=== PATIENT | male | born 1950 | race Caucasian/White ===

== ENCOUNTER → 2017-07-20 15:37 | Outpatient (CLI) | payer MEDICARE, OTHER, SELFPAY ==
--- NOTE | 2017-07-20 15:44 | XR_ITS ---
XR wrist RT min 3V HISTORY posttraumatic pain ITS.REASON: FALL ORDERING PHYSICIAN: Alice Mora MD PATIENT AGE: 67 years COMPARISON: None FINDINGS: There is a vague lucency along the lateral and mid aspect of the scaphoid seen on the AP view. Cannot exclude the possibility of a nondisplaced fracture. Please correlate as to patient's area of pain and tenderness. Scaphoid views may be of further value. No other significant anomalies are evident. IMPRESSION: Ill-defined transverse lucency in the mid aspect of the scaphoid seen only on one view. Cannot exclude the possibility of a nondisplaced fracture. Follow-up recommended
== END ==
PROVIDERS: PCP Family Medicine; Visit Provider Family Medicine
DX: M25.531 Pain in right wrist (principal)
CPT/HCPCS: 73110

== ENCOUNTER → 2018-02-22 08:27 | Outpatient (CLI) | payer MEDICARE, OTHER, SELFPAY ==
--- NOTE | 2018-02-22 08:32 | CI_ITS ---
Cerebrovascular Exam Indications: 433.10 Occlusion/stenosis of carotid artery without cerebral infarction. 785.9 Bruit. IMPRESSIONS 1. The bilateral vertebral arteries are patent with normal antegrade flow. 2. Study suggests 20-49%(LOWER END OF SCALE)stenosis involving the right internal carotid artery and the left internal carotid artery. No change from the study of 02-Jan-2017. History: Coronary artery disease. Risk factors: Hypertension. Hyperlipidemia. Carotid duplex study. Complete study and Doppler flow study including spectral analysis, color and bui scale imaging. Location: Vascular laboratory. Patient status: Outpatient. Tables: Arterial flow: + +--------+--------+ Location V sys V ed + +--------+--------+ Right CCA - proximal 80.9cm/s 17.3cm/s + +--------+--------+ Right CCA - distal 80.9cm/s 17.3cm/s + +--------+--------+ Right ECA 162cm/s -------- + +--------+--------+ Right ICA - proximal 93.5cm/s 19.6cm/s + +--------+--------+ Right ICA - mid 102cm/s 28.3cm/s + +--------+--------+ Right ICA - distal 72.3cm/s 28.3cm/s + +--------+--------+ Right vertebral 41cm/s -------- + +--------+--------+ Left CCA - proximal 89.1cm/s 19.2cm/s + +--------+--------+ Left CCA - distal 108cm/s 23.6cm/s + +--------+--------+ Left ECA 193cm/s -------- + +--------+--------+ Left ICA - proximal 91.7cm/s 22.7cm/s + +--------+--------+ Left ICA - mid 98.7cm/s 27.1cm/s + +--------+--------+ Left ICA - distal 92.5cm/s 22.7cm/s + +--------+--------+ Left vertebral 31.4cm/s -------- + +--------+--------+ Velocity ratios: + + + + + + Right, V sys Right, V ed Left, V sys Left, V ed + + + + + + Max ICA/dist CCA 1.26 1.64 0.91 1.15 + + + + + + (Report amended ) Electronically signed by: Danie Rasheed [id number]
== END ==
PROVIDERS: PCP Emergency Medicine; Visit Provider Emergency Medicine
DX: R09.89 Other specified symptoms and signs involving the circulatory and respiratory systems (principal)
CPT/HCPCS: 93880

== ENCOUNTER → 2018-03-09 10:29 | Outpatient (CLI) | payer MEDICARE, OTHER, SELFPAY ==
--- NOTE | 2018-03-09 10:33 | CT_ITS ---
CT abdomen wo/w con CLINICAL INDICATION: ITS.REASON: HYPERKALEMIA ORDERING PHYSICIAN: Alice Mora MD PATIENT AGE: 67 years COMPARISON: 12/08/2016 TECHNIQUE: Axial images obtained with sagittal and coronal reformats. All CT scans at the facility use one or more dose reduction, viz: automated exposure control, ma/kV adjustment per patient size (including targeted exams where dose is matched to indication, i.e. head), or iterative reconstruction technique. PROCEDURE: Oral Contrast: None IV Contrast: 75 mL's of Isovue 370. FINDINGS: There is extensive coronary artery calcification with coronary artery stents present. There is mild thickening of the pericardium anteriorly. Prior cholecystectomy. No focal liver lesion. Multiple calcified granulomas are present in the spleen. The adrenal glands are unremarkable. The pancreas has an unremarkable appearance. There are nonobstructing renal calculi on the right measuring up to 5 mm in the mid to upper pole. There are 2 left renal cysts one in the mid polar region at 18 mm and one in the lower pole at 28 mm. No hydronephrosis. No ureteral calculi. No retroperitoneal adenopathy or retroperitoneal mass. The appendix has an unremarkable appearance. Bowel gas pattern is nonspecific/nonobstructive. Diverticulosis of the descending and sigmoid colon. The pelvis is not imaged. There are mild osteoarthritic changes of the SI joints and there is a small sclerotic focus of the right ilium medially at 8 mm consistent with a bone island incompletely imaged. A sclerotic lesion also involves the T11 vertebral body inferiorly and anteriorly unchanged from 12/08/2016. This measures 14 mm may be due to a bone island. This has been stable since 03/08/2013. IMPRESSION: 1. No acute finding. 2. Unremarkable adrenal glands. 3. Nonobstructing right nephrolithiasis with benign-appearing left renal cysts
== END ==
PROVIDERS: PCP Family Medicine; Visit Provider Family Medicine
DX: E87.5 Hyperkalemia (principal)
CPT/HCPCS: 74170; Q9967

== ENCOUNTER → 2018-04-28 13:34 | Outpatient (POV) | payer MEDICARE, OTHER, SELFPAY | DX: Z00.00 Encounter for general adult medical examination without abnormal findings (principal) ==

== ENCOUNTER 2018-11-10 23:01 | Observation (INO) ==
[2018-11-10 23:29] LABS: Basophils # 0.1 K/mm3 (0-0.2); Basophils % 0.7 % (0.1-2.0); Eosinophils # 0.1 K/mm3 (0.0-0.4); Eosinophils % 1.5 % (0.1-12.0); Hematocrit 39.4 % (42.0-52.0); Hemoglobin 12.9 g/dL (14.1-18.0); Lymphocytes # 1.2 K/mm3 (0.7-4.5); Lymphocytes % 12.7 % (10-50); Mean Corpuscular HGB Conc 32.8 g/dL (31.8-35.4); Mean Corpuscular Volume 89.5 fl (80-94); Mean Platelet Volume 8.3 fl (7.4-10.4); Monocytes # 0.7 K/mm3 (0.1-1.0); Monocytes % 7.3 % (1.7-9.3); Neutrophils # 7.3 K/mm3 (1.8-7.8); Neutrophils % 77.9 % (37.0-80.0); Platelet Count 236 K/mm3 (142-424); Red Blood Count 4.41 M/mm3 (4.60-6.20); Red Cell Distribution Width 12.9 % (11.5-17.5); White Blood Count 9.4 K/mm3 (4.8-10.8)
[2018-11-10 23:41] LABS: Alanine Aminotransferase 21 U/L (12-78); Albumin Level 3.4 gm/dL (3.4-5.0); Albumin/Globulin Ratio 1.1 (1.1-1.8); Alkaline Phosphatase 97 U/L (46-116); Amylase 38 U/L (25-115); Anion Gap 7.4 mEq/L (5-15); Aspartate Amino Transferase 11 U/L (15-37); Bilirubin,Total 0.3 mg/dL (0.2-1.0); Blood Urea Nitrogen 17 mg/dL (7-18); C-Reactive Protein < 0.2 mg/dL (0.0-0.9); Calcium 8.6 mg/dL (8.5-10.1); Carbon Dioxide 29 mmol/L (21.0-32.0); Chloride 103 mmol/L (98-107); Glucose 80 mg/dL (74-106); Sodium 136 mmol/L (136-145); Total Protein,Serum 6.4 gm/dL (6.4-8.2)
[2018-11-11 00:15] LABS: Microscopic, Urine URINE MICROSCOPIC (MICROSCOPIC)
[2018-11-11 00:26] LABS: Appearance,Urine CLEAR (Clear); Bilirubin,Urine Negative (Negative); Blood, Urine Negative (Negative); Color,Urine YELLOW (Yellow); Glucose,Urine (UA) TRACE (Negative); Ketones,Urine Negative (Negative); Leukocyte Esterase,Urine Negative (Negative); Protein,Urine Negative (Negative); Specific Gravity, Urine 1.015 (1.005-1.030); Urobilinogen,Urine 0.2 EU/dl (0.2)
--- NOTE | 2018-11-11 00:35 | Emergency Department Note ---
ED Disposition Clinical Impression: Abdominal pain Qualifiers: Abdominal location: left upper quadrant Qualified Code(s): R10.12 - Left upper quadrant pain Disposition: Admitted as Observation Condition on Discharge: Good - Critical Care Critical Care Time: No Attestation: On 11/10/18, the high probability of a clinically significant, sudden or life threatening deterioration of the following system(s) required my full and direct attention, intervention and personal management. The time I documented below is in addition to time spent performing reported procedures but includes the following listed in this critical care notation. Medical Decision Making - Medical Records Medical records reviewed: Yes: I reviewed the patient's medical records. - [place] Inquiry Pt receiving controlled substance: No Vital Signs: 11/10/18 23:09 11/11/18 01:03 Temperature 98.0 F Temperature Source Oral Pulse Rate [Right] 65 58 L Respiratory Rate 18 12 Blood Pressure [Right Arm] 152/68 H 159/68 H Blood Pressure Mean [Right Arm] 96 98 02 Sat by Pulse Oximetry 98 91 L Oxygen Delivery Method Room Air - Lab Data Lab results reviewed: Yes: I reviewed the patient's lab results. Lab Results 11/10/18 23:20: WBC 9.4 D, RBC 4.41 L, Hgb 12.9 L, Hct 39.4 L, MCV 89.5, MCH 29.4, MCHC 32.8, RDW 12.9, Plt Count 236, MPV 8.3, Neut % (Auto) 77.9, Lymph % (Auto) 12.7, [place] % (Auto) 7.3, Eos % (Auto) 1.5, Baso % (Auto) 0.7, Neut # (Auto) 7.3, Lymph # (Auto) 1.2, [place] # (Auto) 0.7, Eos # (Auto) 0.1, Baso # (Auto) 0.1 11/10/18 23:20: Sodium 136, Potassium 3.4 L, Chloride 103, Carbon Dioxide 29, Anion Gap 7.4, BUN 17, Creatinine 1.06, Estimated Creat Clear 74, Estimated GFR 70, Est GFR ( Amer) 84, Glucose 80 D, Calcium 8.6, Total Bilirubin 0.3, AST 11 L, ALT 21, Alkaline Phosphatase 97, C-Reactive Protein < 0.2, Total Protein 6.4, Albumin 3.4, Globulin 3.0, Albumin/Globulin Ratio 1.1, Amylase 38, Lipase 268 11/10/18 23:20: Lactate 1.0 11/11/18 00:11: Urine Color Yellow, Urine Appearance Clear, Urine pH 7.0, Ur Specific [place] 1.015, Urine Protein Negative, Urine Glucose (UA) Trace, Urine Ketones Negative, Urine Blood Negative, Urine Nitrate Negative, Urine Bilirubin Negative, Urine Urobilinogen 0.2, Ur Leukocyte Esterase Negative, Urine WBC 3-5, Ur Squamous Epith Cells 3-5, Urine Bacteria Trace Result diagrams: 11/10/18 23:20 11/10/18 23:20 Orders (Tests/Meds): ED MEDICATIONS Generic Name Dose Route Start Last Admin Trade Name Freq PRN Reason Stop Dose Admin Sodium Chloride 1,000 mls @ 999 mls/hr 11/10/18 23:15 11/10/18 23:25 Sod Chlor 0.9% 1000ml Bag IV 11/11/18 00:15 999 mls/hr .Q1H1M BRAULIO Administration Metronidazole 500 mg in 100 mls @ 100 mls/hr 11/11/18 00:45 11/11/18 01:02 Flagyl 500mg/100ml Ivpb IV 11/25/18 00:44 100 mls/hr Q8H BRAULIO Administration Protocol Levofloxacin/Dextrose 750 mg in 150 mls @ 100 mls/hr 11/11/18 00:45 Levofloxacin 750mg/150ml Premix IV 11/25/18 00:44 Q24H BRAULIO Protocol Discontinued Medications Generic Name Dose Route Start Last Admin Trade Name Freq PRN Reason Stop Dose Admin Morphine Sulfate 4 mg 11/10/18 23:14 11/10/18 23:25 Morphine 4mg/Ml Syringe IV 11/10/18 23:15 4 mg ONCE ONE Administration Morphine Sulfate 4 mg 11/11/18 00:41 11/11/18 01:01 Morphine 4mg/Ml Syringe IV 11/11/18 00:42 4 mg ONCE ONE Administration Ondansetron HCl 4 mg 11/10/18 23:14 11/10/18 23:25 Zofran 4mg/2ml Vial IV 11/10/18 23:15 4 mg ONCE ONE Administration Promethazine HCl 12.5 mg 11/11/18 00:41 11/11/18 01:01 Phenergan 25mg/Ml 1ml Vial IV 11/11/18 00:42 12.5 mg ONCE ONE Administration Sodium Chloride 25 ml 11/11/18 00:41 Sod Chlor 0.9% 25ml Bag IV 11/11/18 00:42 ONCE ONE ORDERS Category Date Time Status Complete Blood Count Auto Diff Stat Lab 11/10/18 23:20 Results Erythrocyte Sedimentation Rate Stat Lab 11/10/18 23:20 Results - Physician Consults Physician Consulted: lee ann Reason -: Admission Nausea/Vomiting/Diarrhea HPI - General Chief complaint: Abdominal Pain Stated complaint: Pain left Abd Time Seen by Provider: 11/11/18 00:25 Mode of Arrival: Ambulatory Source of Information: Patient, Spouse, Medical Record Limitations: No Limitations Description of Symptoms (Recalled from ER Triage Doc. by RN): Pt seen here this morning and twice to his dr for his complaint of abd pain and nausea. - History of Present Illness HPI Narrative: pt with progressive lt sided abd pain and has been in the ed and saw pcp today and has ongoing pain with dec po intake MD complaint: nausea, abdominal pain Onset (ago): day(s) Associated Abdominal Pain: Yes Location of pain: LUQ Severity: moderate Associated symptoms: denies other symptoms - Related Data Home Medications Medication Instructions Recorded Confirmed aspirin 81 mg tablet,delayed 81 mg PO DAILY 03/17/18 11/10/18 release clopidogrel 75 mg tablet 75 mg PO DAILY 03/17/18 11/10/18 dulaglutide 1.5 mg/0.5 mL 1.5 mg SQ QWEEK 03/17/18 11/10/18 subcutaneous pen injector hydrochlorothiazide 25 mg tablet 25 mg PO DAILY 03/17/18 11/10/18 insulin glargine (U-300) conc. 300 40 unit SQ HS ml 03/17/18 11/10/18 unit/mL (1.5 mL) subcutaneous pen metformin 1,000 mg tablet 1,000 mg PO BID 03/17/18 11/10/18 pravastatin 40 mg tablet 40 mg PO DAILY 03/17/18 11/10/18 tamsulosin 0.4 mg capsule 0.4 mg PO DAILY 03/17/18 11/10/18 amlodipine 10 mg tablet 5 mg PO DAILY tab 10/25/18 11/10/18 carvedilol 25 mg tablet 12.5 mg PO BID tab 10/25/18 11/10/18 hydralazine 25 mg tablet 25 mg PO BID tab 10/25/18 11/10/18 insulin aspart (U-100) 100 unit/mL 25 unit SQ TID ml 10/25/18 11/10/18 (3 mL) subcutaneous pen Lisinopril [Lisinopril 10mg Tab] 10 mg PO BID 11/10/18 11/10/18 Allergies Allergy/AdvReac Type Severity Reaction Status Date / Time propoxyphene [From DARVON] Allergy Unknown I-HIVES Verified 11/09/18 09:49 [facility] History - Hepatitis A Screen Drug use history?: No High risk sexual behaviors?: No History of sexually transmitted infection?: No Currently employed?: No Childcare worker?: No Do you have indoor plumbing?: Yes Do you have electricity?: Yes Attestation statement:: This patient has been screened for Hepatitis A risk factors. I have reviewed the patient's past medical history: Yes Medical History: Reports:: Atrial Fibrillation, Coronary Artery Disease, Diabetes Mellitus Type 2, Hypertension, Palpitations Denies:: Cancer, Diabetes Mellitus Type 1, Internal Pacemaker, MRSA, Seizures Other Surgeries: Yes: Cardiac Catheterization, Cardiac Surgery. No: Pacemaker Amputation: No - Social History Smoking Status: Former smoker Alcohol Intake: never Substance Use Type: denies use Occupational Status: retired Housing: house Household Members: spouse Family Hx:: No significant family history ROS Obtained: Yes All systems reviewed & no additional complaints - Constitutional Constitutional: Denies fever(s) - Eyes Eyes: Denies change in vision - ENT Ears, Nose, Mouth, and Throat: Denies sore throat - Cardiovascular Cardiovascular: Denies chest pain - Respiratory Respiratory: No cough - Gastrointestinal Gastrointestingal: Reports: as per HPI, abdominal pain, nausea, vomiting. Denies: diarrhea - Genitourinary Male Genitourinary: Denies hematuria - Musculoskeletal Musculoskeletal: Denies joint pain, Denies joint swelling - Integumentary/Breasts Skin/Breast: Denies rash - Neurologic Neurologic: Denies confusion, Denies focal weakness Physical Exam - General General appearance: alert - Head Head exam: normocephalic - Eye Eye exam: Present: PERRL, EOMI. Absent: scleral icterus - ENT ENT exam: Present: mucous membranes dry - Neck Neck exam: Present: trachea midline - Respiratory Respiratory exam: Absent: respiratory distress - Cardiovascular Cardiovascular exam: Present: regular rate - Abdominal Exam Abdominal exam: Present: soft, tenderness Abdominal tenderness: Present: LUQ, moderate - Extremities Exam Extremities exam: Present: full ROM - Back Exam Back exam: Absent: CVA tenderness (L) - Neurological Exam Neurological exam: Present: alert, oriented X3, CN II-XII intact - Psychiatric Psychiatric exam: Present: normal affect - Skin Skin exam: Absent: rash
[2018-11-11 00:42] LABS: Bacteria,Urine Trace /lpf
[2018-11-11 01:19] LABS: Erythrocyte Sedimentation Rate 22 mm/hr (0-20)
[2018-11-11 06:45] LABS: Basophils # 0.1 K/mm3 (0-0.2); Basophils % 0.8 % (0.1-2.0); Eosinophils # 0.2 K/mm3 (0.0-0.4); Eosinophils % 2.1 % (0.1-12.0); Hematocrit 39.8 % (42.0-52.0); Hemoglobin 13.4 g/dL (14.1-18.0); Lymphocytes # 1.3 K/mm3 (0.7-4.5); Lymphocytes % 14.7 % (10-50); Mean Corpuscular HGB Conc 33.6 g/dL (31.8-35.4); Mean Corpuscular Volume 89.7 fl (80-94); Mean Platelet Volume 8.2 fl (7.4-10.4); Monocytes # 0.5 K/mm3 (0.1-1.0); Monocytes % 5.1 % (1.7-9.3); Neutrophils # 6.9 K/mm3 (1.8-7.8); Neutrophils % 77.3 % (37.0-80.0); Platelet Count 248 K/mm3 (142-424); Red Blood Count 4.43 M/mm3 (4.60-6.20)
[2018-11-11 07:06] LABS: Anion Gap 12.3 mEq/L (5-15); Calcium 8.5 mg/dL (8.5-10.1)
--- NOTE | 2018-11-11 07:52 | Pharmacy Consult Notes ---
[facility] Pharmacy VTE Monitoring - Patient Demographics Admission date: 11/11/18 Report Date: 11/11/18 Time: 07:51 Allergies/Adverse Reactions: Patient Allergies propoxyphene [From DARVON] Allergy (Unknown, Verified 11/09/18 09:49) I-HIVSHAWANDA Height: 1.73 m Weight: 80.371 kg Patient Problems: Current Active Problems Abdominal pain (Acute) - VTE Risk Labs: VTE Related Lab Results Hgb 13.4 g/dL (14.1-18.0) L 11/11/18 06:25 Hct 39.8 % (42.0-52.0) L 11/11/18 06:25 Plt Count 248 K/mm3 (142-424) 11/11/18 06:25 BUN 14 mg/dL (7-18) 11/11/18 06:25 Creatinine 0.91 mg/dL (0.70-1.30) 11/11/18 06:25 Estimated Creat Clear 81 mL/min (50-200) 11/11/18 06:25 Was VTE Risk Assessment Performed: Yes VTE Score: 4 VTE Risk Level: Low Risk Clinical Trial Participant: No - Prophylaxis VTE Prophylaxis Ordered?: Yes Types of VTE Prophylaxis: TEDS Knee High
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
--- NOTE | 2018-11-11 11:28 | Consult Report ---
History of Present Illness Consult date: 11/11/18 Requesting physician: Alice Mora Chief complaint: Abdominal pain Additional Medical History:: 1. Coronary artery disease A. Drug-eluting stents to LAD and circumflex, 2015 B. Cardiac cath with drug-eluting stents to distal dominant circumflex and distal and proximal LAD, 10/25/2018 ANGIOGRAPHIC RESULTS: 1. The left main artery normal 2. The left anterior descending artery has a very proximal 60-70% stenosis followed by a stent which is widely patent with excellent distal transitioning. The mid LAD has 30 and 40% stenosis while the distal LAD has an 80-90% stenosis followed by additional 40-50% stenoses 3. The circumflex artery is a large dominant vessel 10-20% proximal stenoses followed by an 80% distal concentric stenosis just proximal to the terminal obtuse marginal series which gives off multiple branches 4. The right coronary artery small nondominant and normal 5. The [place] ventriculogram reveals normal 65% 6. The left ventricular end-diastolic pressure 10 mmHg IMPRESSION: 1. Severe disease in the proximal and distal LAD as described above with successful stenting of these lesions being reduced to 0% with 2 drug-eluting stents in a noncontiguous manner 2. Severe stenosis in the distal dominant circumflex artery with successful stenting reducing the severe stenosis to less than 10% with 1 drug-eluting stent 3. Normal ejection fraction 4. Normal left ventricular end-diastolic pressure 2. 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 Hypertension 4. Hyperlipidemia 5. BPH 6. History of abdominal hernia repair 7. History of diverticulosis 8. History of colonic polyps History of present illness: 68-year-old white male with known coronary artery disease and recent coronary artery stenting 2 weeks ago was admitted to the hospital for continued abdominal pain. Patient describes left-sided discomfort for over a month that is near constant over the last several days without fever, chills, vomiting or diarrhea. He does note some nausea with decreased appetite over the last 2 days. He does have a history of diverticulosis but has never had diverticulitis. Eating does exacerbate the pain and having a bowel movement does not alleviate it. Work-up per Dr. Mora is ongoing. Cardiology was consulted to evaluate for possible vascular etiology in conjunction with recent coronary stenting. Patient's white count remains normal and with a C-reactive protein normal yesterday. [facility] History Medical History: Reports:: Arrhythmia, Atrial Fibrillation, Coronary Artery Disease, Diabetes Mellitus Type 2, Hypertension, Palpitations Denies:: Cancer, Diabetes Mellitus Type 1, Internal Pacemaker, MRSA, Seizures *Have you ever received a pneumonia vaccine?: Yes *Have you received a flu vaccine this season?: No Other Surgeries: Yes: Cardiac Catheterization, Cardiac Surgery, Cholecystectomy, Colonoscopy. No: Pacemaker Amputation: No - *Social History Educational Level: Attended College Smoking Status: Former smoker Tobacco Type: cigarettes Alcohol Intake: never Substance Use Type: denies use *Occupational Status:: retired Housing: house Household Members: spouse *Travel in the last 8 weeks: None - Psychiatric History Expresses thoughts of harming self/others: None Suicide Plan Description: No Plan Family Hx:: Coronary Artery Disease, Diabetes, Hyperlipidemia, Hypertension, Kidney Disease Meds Home Medications Medication Instructions Recorded Confirmed Type aspirin 81 mg tablet,delayed 81 mg PO DAILY 03/17/18 11/11/18 History release clopidogrel 75 mg tablet 75 mg PO DAILY 03/17/18 11/11/18 History hydrochlorothiazide 25 mg tablet 25 mg PO DAILY 03/17/18 11/11/18 History insulin glargine (U-300) conc. 300 40 unit SQ HS ml 03/17/18 11/11/18 History unit/mL (1.5 mL) subcutaneous pen metformin 1,000 mg tablet 1,000 mg PO BID 03/17/18 11/11/18 History pravastatin 40 mg tablet 40 mg PO HS 03/17/18 11/11/18 History tamsulosin 0.4 mg capsule 0.4 mg PO DAILY 03/17/18 11/11/18 History carvedilol 25 mg tablet 25 mg PO BID tab 10/25/18 11/11/18 History hydralazine 25 mg tablet 25 mg PO BID tab 10/25/18 11/11/18 History insulin aspart (U-100) 100 unit/mL 25 unit SQ TID ml 10/25/18 11/11/18 History (3 mL) subcutaneous pen Lisinopril [Lisinopril 10mg Tab] 10 mg PO BID 11/10/18 11/11/18 History Empagliflozin [Jardiance] 25 mg PO DAILYDM 11/11/18 11/11/18 History Finasteride [Proscar 5mg Tablet] 5 mg PO DAILY 11/11/18 11/11/18 History Gabapentin [Gabapentin 100mg Cap] 100 mg PO TID 11/11/18 11/11/18 History Allergies Allergy/AdvReac Type Severity Reaction Status Date / Time propoxyphene [From DARVON] Allergy Unknown I-HIVES Verified 11/09/18 09:49 Review of Systems - Constitutional Reports malaise - *Cardiovascular Denies chest pain, Denies shortness of breath with activity - *Respiratory Denies shortness of breath with activity - *Gastrointestinal Reports abdominal pain, Reports nausea, Denies vomiting - *Genitourinary Denies blood in urine - *Musculoskeletal Denies joint pain, Denies back pain - *Neurologic Denies abnormal hearing, Denies confusion, Denies localized weakness Exam Vital signs and Labs for Last 24 Hours: Temp Pulse Resp BP Pulse Ox 98.1 F 57 L 16 119/59 L 93 L 11/11/18 08:00 11/11/18 08:00 11/11/18 08:00 11/11/18 08:00 11/11/18 08:00 Laboratory Results - last 24 hr 11/10/18 23:20: WBC 9.4 D, RBC 4.41 L, Hgb 12.9 L, Hct 39.4 L, MCV 89.5, MCH 29.4, MCHC 32.8, RDW 12.9, Plt Count 236, MPV 8.3, Neut % (Auto) 77.9, Lymph % (Auto) 12.7, [place] % (Auto) 7.3, Eos % (Auto) 1.5, Baso % (Auto) 0.7, Neut # (Auto) 7.3, Lymph # (Auto) 1.2, [place] # (Auto) 0.7, Eos # (Auto) 0.1, Baso # (Aut o) 0.1, ESR 22 H 11/10/18 23:20: Sodium 136, Potassium 3.4 L, Chloride 103, Carbon Dioxide 29, Anion Gap 7.4, BUN 17, Creatinine 1.06, Estimated Creat Clear 74, Estimated GFR 70, Est GFR ( Amer) 84, Glucose 80 D, Calcium 8.6, Total Bilirubin 0.3, AST 11 L, ALT 21, Alkaline Phosphatase 97, C-Reactive Protein < 0.2, Total Protein 6.4, Albumin 3.4, Globulin 3.0, Albumin/Globulin Ratio 1.1, Amylase 38, Lipase 268 11/10/18 23:20: Lactate 1.0 11/11/18 00:11: Urine Color Yellow, Urine Appearance Clear, Urine pH 7.0, Ur Specific [place] 1.015, Urine Protein Negative, Urine Glucose (UA) Trace, Urine Ketones Negative, Urine Blood Negative, Urine Nitrate Negative, Urine Bilirubin Negative, Urine Urobilinogen 0.2, Ur Leukocyte Esterase Negative, Urine WBC 3-5, Ur Squamous Epith Cells 3-5, Urine Bacteria Trace 11/11/18 06:25: WBC 9.0, RBC 4.43 L, Hgb 13.4 L, Hct 39.8 L, MCV 89.7, MCH 30.1, MCHC 33.6, RDW 13.0, Plt Count 248, MPV 8.2, Neut % (Auto) 77.3, Lymph % (Auto) 14.7, [place] % (Auto) 5.1, Eos % (Auto) 2.1, Baso % (Auto) 0.8, Neut # (Auto) 6.9, Lymph # (Auto) 1.3, [place] # (Auto) 0.5, Eos # (Auto) 0.2, Baso # (Auto) 0.1 11/11/18 06:25: Sodium 140, Potassium 4.3 D, Chloride 103, Carbon Dioxide 29, Anion Gap 12.3, BUN 14, Creatinine 0.91, Estimated Creat Clear 81, Estimated GFR 83, Est GFR ( Amer) 101 D, Glucose 144 H D, Calcium 8.5 11/11/18 06:32: POC Glucose 146 H I & O for Last 24 hours: Intake & Output 11/08/18 11/09/18 11/10/18 11/11/18 11:59 11:59 11:59 11:59 Intake Total 1250 / 1250 Output Total 150 / 150 Balance 1100 / 1100 Weight 177 lb 3 oz - *Routine HEENT Exam Head: Present: normocephalic Eye: Present: EOMI, PERRL ENT: Present: mucous membranes moist - *Routine Neck Exam Present: supple. Absent: JVD, carotid bruit - *Routine Respiratory Exam Present: CTA bilaterally. Absent: accessory muscle use, rales, rhonchi, wheezes - *Routine Cardiovascular Exam Present: RRR. Absent: murmur, gallop, rubs - *Routine Abdominal Exam Present: soft, tenderness. Absent: distended, guarding - *Routine Extremities Exam Absent: edema, calf tenderness - *Routine Neurological Exam Present: alert, oriented X3, moving all extremities Assessment and Plan (1) Benign prostatic hyperplasia Current visit: Yes Status: Acute Category: Medical Code(s): N40.0 - Benign prostatic hyperplasia without lower urinary tract symptoms (2) Abdominal pain Current visit: Yes Status: Acute Qualifiers: Abdominal location: left upper quadrant Qualified Code(s): R10.12 - Left upper quadrant pain Category: Medical Code(s): R10.9 - Unspecified abdominal pain (3) CAD (coronary artery disease) Current visit: No Status: Chronic Qualifiers: Coronary Disease-Associated Artery/Lesion type: [place] artery [place] vs. transplanted heart: [place] heart Associated angina: without angina Qualified Code(s): I25.10 - Atherosclerotic heart disease of [place] coronary artery without angina pectoris Category: Medical Code(s): I25.10 - Atherosclerotic heart disease of [place] coronary artery without angina pectoris (4) Diabetes Current visit: No Status: Chronic Qualifiers: Diabetes mellitus type: type 2 Diabetes mellitus chcf insulin use: with manager terminal use Diabetes mellitus complication status: without complication Qualified Code(s): E11.9 - Type 2 diabetes mellitus without complications; Z79.4 - terminal worker (current) use of insulin Category: Medical Code(s): E11.9 - Type 2 diabetes mellitus without complications - Assessment and plan all Dx Assessment and Plan for all problems:: 1. Abdominal pain with abnormal CT of the abdomen suggestive of muscular hypertrophy versus colitis. Diverticulosis is present with no evidence of diverticulitis on CT scan dated 11/10/2018. With normal white count and length of time of symptoms, this does not appear to be of vascular etiology. 2. Coronary artery disease with recent multivessel stenting 10/25/2018. Clinically stable and patient denies any abdominal pain with his previous angina symptoms. Recommend continuing aspirin and Plavix. Would not recommend holding or stopping ASA/plavix if surgery is needed.
--- NOTE | 2018-11-11 13:18 | Consult Report ---
*Admission Date: 11/11/18 *Reason for consult:: Left-sided abdominal pain/possible herniation *History of present illness: This is a 68-year-old gentleman seen in consultation from the service of Dr. Mora for evaluation regarding left-sided abdominal pain and possible herniation. Please see HPI forwarded from his admission history and physical (below). This 68-year-old white male has been bothered by left-sided abdominal pain for over a month now. And seen by Dr. Mora in the office of [facility] and has been in the emergency room at [facility] several times. He has required IV pain medication. He has not been febrile has not had nausea or vomiting has not had any significant blood markers, no elevation in white blood cell count. A CT scan in the emergency room 11/10/18 showed evidence of diverticulosis but not diverticulitis. There was some thickening in the wall of the sigmoid colon. No renal or bladder abnormalities were noted though his prostate did appear to be enlarged. Dr. Mora just now reviewed this CT again with Dr. Rasheed. Dr. Rasheed cannot identify any definite herniation in that area. This morning the patient rates the pain at about a 6 out of 10. Review of Systems - Constitutional Denies chills - Eyes Denies change in vision - ENT Denies change in voice - *Cardiovascular Denies leg swelling - *Respiratory Denies cough - *Gastrointestinal Denies change in bowel habits - *Genitourinary Denies painful urination - *Musculoskeletal Denies joint pain - Integumentary/Breasts Denies lesions - *Neurologic Denies abnormal hearing, Denies confusion, Denies localized weakness - Psychiatric Denies anxiety - Endocrine Denies cold intolerance - Hematologic/Lymphatic Denies easy bleeding - Allergic/Immunologic Denies GI upset with certain foods [facility] History Medical History: Reports:: Arrhythmia, Atrial Fibrillation, Coronary Artery Disease, Diabetes Mellitus Type 2, Hypertension, Palpitations Denies:: Cancer, Diabetes Mellitus Type 1, Internal Pacemaker, MRSA, Seizures *Have you ever received a pneumonia vaccine?: Yes *Have you received a flu vaccine this season?: No Other Surgeries: Yes: Cardiac Catheterization, Cardiac Surgery, Cholecystectomy, Colonoscopy. No: Pacemaker Amputation: No - *Social History Educational Level: Attended College Smoking Status: Former smoker Tobacco Type: cigarettes Alcohol Intake: never Substance Use Type: denies use *Occupational Status:: retired Housing: house Household Members: spouse *Travel in the last 8 weeks: None - Psychiatric History Expresses thoughts of harming self/others: None Suicide Plan Description: No Plan Family Hx:: Coronary Artery Disease, Diabetes, Hyperlipidemia, Hypertension, Kidney Disease Meds Home Medications Medication Instructions Recorded Confirmed Type aspirin 81 mg tablet,delayed 81 mg PO DAILY 03/17/18 11/11/18 History release clopidogrel 75 mg tablet 75 mg PO DAILY 03/17/18 11/11/18 History hydrochlorothiazide 25 mg tablet 25 mg PO DAILY 03/17/18 11/11/18 History insulin glargine (U-300) conc. 300 40 unit SQ HS ml 03/17/18 11/11/18 History unit/mL (1.5 mL) subcutaneous pen metformin 1,000 mg tablet 1,000 mg PO BID 03/17/18 11/11/18 History pravastatin 40 mg tablet 40 mg PO HS 03/17/18 11/11/18 History tamsulosin 0.4 mg capsule 0.4 mg PO DAILY 03/17/18 11/11/18 History carvedilol 25 mg tablet 25 mg PO BID tab 10/25/18 11/11/18 History hydralazine 25 mg tablet 25 mg PO BID tab 10/25/18 11/11/18 History insulin aspart (U-100) 100 unit/mL 25 unit SQ TID ml 10/25/18 11/11/18 History (3 mL) subcutaneous pen Lisinopril [Lisinopril 10mg Tab] 10 mg PO BID 11/10/18 11/11/18 History Empagliflozin [Jardiance] 25 mg PO DAILYDM 11/11/18 11/11/18 History Finasteride [Proscar 5mg Tablet] 5 mg PO DAILY 11/11/18 11/11/18 History Gabapentin [Gabapentin 100mg Cap] 100 mg PO TID 11/11/18 11/11/18 History Allergies Allergy/AdvReac Type Severity Reaction Status Date / Time propoxyphene [From DARVON] Allergy Unknown I-HIVES Verified 11/09/18 09:49 Exam Vital signs and Labs for Last 24 Hours: Temp Pulse Resp BP Pulse Ox 98.1 F 57 L 16 119/59 L 93 L 11/11/18 08:00 11/11/18 08:00 11/11/18 08:00 11/11/18 08:00 11/11/18 08:00 Laboratory Results - last 24 hr 11/10/18 23:20: WBC 9.4 D, RBC 4.41 L, Hgb 12.9 L, Hct 39.4 L, MCV 89.5, MCH 29.4, MCHC 32.8, RDW 12.9, Plt Count 236, MPV 8.3, Neut % (Auto) 77.9, Lymph % (Auto) 12.7, [place] % (Auto) 7.3, Eos % (Auto) 1.5, Baso % (Auto) 0.7, Neut # (Auto) 7.3, Lymph # (Auto) 1.2, [place] # (Auto) 0.7, Eos # (Auto) 0.1, Baso # (Auto) 0.1, ESR 22 H 11/10/18 23:20: Sodium 136, Potassium 3.4 L, Chloride 103, Carbon Dioxide 29, Anion Gap 7.4, BUN 17, Creatinine 1.06, Estimated Creat Clear 74, Estimated GFR 70, Est GFR ( Amer) 84, Glucose 80 D, Calcium 8.6, Total Bilirubin 0.3, AST 11 L, ALT 21, Alkaline Phosphatase 97, C-Reactive Protein < 0.2, Total Protein 6.4, Albumin 3.4, Globulin 3.0, Albumin/Globulin Ratio 1.1, Amylase 38, Lipase 268 11/10/18 23:20: Lactate 1.0 11/11/18 00:11: Urine Color Yellow, Urine Appearance Clear, Urine pH 7.0, Ur Specific [place] 1.015, Urine Protein Negative, Urine Glucose (UA) Trace, Urine Ketones Negative, Urine Blood Negative, Urine Nitrate Negative, Urine Bilirubin Negative, Urine Urobilinogen 0.2, Ur Leukocyte Esterase Negative, Urine WBC 3-5, Ur Squamous Epith Cells 3-5, Urine Bacteria Trace 11/11/18 06:25: WBC 9.0, RBC 4.43 L, Hgb 13.4 L, Hct 39.8 L, MCV 89.7, MCH 30.1, MCHC 33.6, RDW 13.0, Plt Count 248, MPV 8.2, Neut % (Auto) 77.3, Lymph % (Auto) 14.7, [place] % (Auto) 5.1, Eos % (Auto) 2.1, Baso % (Auto) 0.8, Neut # (Auto) 6.9, Lymph # (Auto) 1.3, [place] # (Auto) 0.5, Eos # (Auto) 0.2, Baso # (Auto) 0.1 11/11/18 06:25: Sodium 140, Potassium 4.3 D, Chloride 103, Carbon Dioxide 29, Anion Gap 12.3, BUN 14, Creatinine 0.91, Estimated Creat Clear 81, Estimated GFR 83, Est GFR ( Amer) 101 D, Glucose 144 H D, Calcium 8.5 11/11/18 06:32: POC Glucose 146 H 11/11/18 11:51: POC Glucose 133 H I & O for Last 24 hours: Intake & Output 11/09/18 11/10/18 11/11/18 11/12/18 11:59 11:59 11:59 11:59 Intake Total 1250 / 1250 Output Total 150 / 150 Balance 1100 / 1100 Weight 177 lb 3 oz - Constitutional no acute distress - *Routine Respiratory Exam Absent: respiratory distress - *Routine Abdominal Exam Present: tenderness Comments: Fairly pinpoint tenderness in the left mid abdomen (just slightly above and to the left of the umbilicus). No obvious herniation. Results - Labs 11/11/18 06:25 11/11/18 06:25 Laboratory Results - last 24 hr 11/10/18 23:20: WBC 9.4 D, RBC 4.41 L, Hgb 12.9 L, Hct 39.4 L, MCV 89.5, MCH 29.4, MCHC 32.8, RDW 12.9, Plt Count 236, MPV 8.3, Neut % (Auto) 77.9, Lymph % (Auto) 12.7, [place] % (Auto) 7.3, Eos % (Auto) 1.5, Baso % (Auto) 0.7, Neut # (Auto) 7.3, Lymph # (Auto) 1.2, [place] # (Auto) 0.7, Eos # (Auto) 0.1, Baso # (Auto) 0.1, ESR 22 H 11/10/18 23:20: Sodium 136, Potassium 3.4 L, Chloride 103, Carbon Dioxide 29, Anion Gap 7.4, BUN 17, Creatinine 1.06, Estimated Creat Clear 74, Estimated GFR 70, Est GFR ( Amer) 84, Glucose 80 D, Calcium 8.6, Total Bilirubin 0.3, AST 11 L, ALT 21, Alkaline Phosphatase 97, C-Reactive Protein < 0.2, Total Protein 6.4, Albumin 3.4, Globulin 3.0, Albumin/Globulin Ratio 1.1, Amylase 38, Lipase 268 11/10/18 23:20: Lactate 1.0 11/11/18 00:11: Urine Color Yellow, Urine Appearance Clear, Urine pH 7.0, Ur Specific [place] 1.015, Urine Protein Negative, Urine Glucose (UA) Trace, Urine Ketones Negative, Urine Blood Negative, Urine Nitrate Negative, Urine Bilirubin Negative, Urine Urobilinogen 0.2, Ur Leukocyte Esterase Negative, Urine WBC 3-5, Ur Squamous Epith Cells 3-5, Urine Bacteria Trace 11/11/18 06:25: WBC 9.0, RBC 4.43 L, Hgb 13.4 L, Hct 39.8 L, MCV 89.7, MCH 30.1, MCHC 33.6, RDW 13.0, Plt Count 248, MPV 8.2, Neut % (Auto) 77.3, Lymph % (Auto) 14.7, [place] % (Auto) 5.1, Eos % (Auto) 2.1, Baso % (Auto) 0.8, Neut # (Auto) 6.9, Lymph # (Auto) 1.3, [place] # (Auto) 0.5, Eos # (Auto) 0.2, Baso # (Auto) 0.1 11/11/18 06:25: Sodium 140, Potassium 4.3 D, Chloride 103, Carbon Dioxide 29, Anion Gap 12.3, BUN 14, Creatinine 0.91, Estimated Creat Clear 81, Estimated GFR 83, Est GFR ( Amer) 101 D, Glucose 144 H D, Calcium 8.5 11/11/18 06:32: POC Glucose 146 H 11/11/18 11:51: POC Glucose 133 H - Imaging CT scan - abdomen: report reviewed, image reviewed CT scan - pelvis: report reviewed, image reviewed (The patient has no sign of left abdominal wall hernia per CT scan.) Assessment and Plan (1) Benign prostatic hyperplasia Current visit: Yes Status: Acute Category: Medical Code(s): N40.0 - Benign prostatic hyperplasia without lower urinary tract symptoms (2) Abdominal pain Current visit: Yes Status: Acute Qualifiers: Abdominal location: left upper quadrant Qualified Code(s): R10.12 - Left upper quadrant pain Category: Medical Code(s): R10.9 - Unspecified abdominal pain No definitive herniation. Potential abdominal wall musculoskeletal or neurovascular anomaly. An MRI of the abdomen has been ordered; however, the patient states that he "absolutely cannot tolerate MRI". The patient states that he cannot tolerate MRI "even with sedation". He claims "very severe claustrophobia". Secondary to the inability for the patient to tolerate MRI, a focused abdominal wall ultrasound has been ordered. (3) CAD (coronary artery disease) Current visit: No Status: Chronic Qualifiers: Coronary Disease-Associated Artery/Lesion type: [place] artery [place] vs. transplanted heart: [place] heart Associated angina: without angina Qualified Code(s): I25.10 - Atherosclerotic heart disease of [place] coronary artery without angina pectoris Category: Medical Code(s): I25.10 - Atherosclerotic heart disease of [place] coronary artery without angina pectoris (4) Diabetes Current visit: No Status: Chronic Qualifiers: Diabetes mellitus type: type 2 Diabetes mellitus medical terminologist insulin use: with medical terminologist use Diabetes mellitus complication status: without complication Qualified Code(s): E11.9 - Type 2 diabetes mellitus without complications; Z79.4 - group home (current) use of insulin Category: Medical Code(s): E11.9 - Type 2 diabetes mellitus without complications
--- NOTE | 2018-11-12 14:57 | Discharge Summary ---
General - General Admission date:: 11/11/18 Discharge date: 11/11/18 HPI HPI: This 68-year-old white male has been bothered by left-sided abdominal pain for over a month now. And seen by Dr. Mora in the office of [facility] and has been in the emergency room at [facility] several times. He has required IV pain medication. He has not been febrile has not had nausea or vomiting has not had any significant blood markers, no elevation in white blood cell count. A CT scan in the emergency room 11/10/18 showed evidence of diverticulosis but not diverticulitis. There was some thickening in the wall of the sigmoid colon. No renal or bladder abnormalities were noted though his prostate did appear to be enlarged. Dr. Mora just now reviewed this CT again with Dr. Rasheed. Dr. Rasheed cannot identify any definite herniation in that area. This morning the patient rates the pain at about a 6 out of 10. Hospital Course Hospital Course: The patient was started on pain control and surgery was consulted. Cardiology was consulted as well since the patient had just had stents placed on 10/25/2018. Cardiology saw the patient and felt he was clinically stable. They recommended continuing aspirin and Plavix. Dr. Juan saw the patient in consultation and an abdominal MRI was recommended. The patient stated he absolutely could not tolerate this as he was very claustrophobic. Dr. Juan ordered a focused abdominal wall ultrasound and ordered the patient Toradol 15 mg IV every 6 hours. The abdominal ultrasound was unremarkable. According to the nursing notes, the patient continued to complain of severe abdominal pain and was offered pain medication several times but refused. He decided he wanted to leave AGAINST MEDICAL ADVICE and signed the paper and left AMA. Objective Vital signs: Temp Pulse Resp BP Pulse Ox 98.2 F 56 L 22 132/80 99 11/11/18 16:00 11/11/18 16:00 11/11/18 16:00 11/11/18 16:00 11/11/18 16:00 Narrative: - Constitutional Comments: He is uncomfortable due to pain. He rates his pain 6 out of 10 at this point. 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 - *Routine Neck Exam Present: supple - Routine Chest/Breast/Axilla Exam Chest wall: Absent: tenderness Axillae: Absent: lymphadenopathy - *Routine Respiratory Exam Present: CTA bilaterally - *Routine Cardiovascular Exam Present: RRR - *Routine Abdominal Exam Present: surgical scars Comments: His abdomen is soft but there is tenderness on the left and perhaps some slight protuberance there. This would be an area of a possible spit Riley hernia though I can find no distinct defect. The pain does seem to be in the wall more than being deep pain. No CVA tenderness. - *Routine Rectal Exam Visual: Present: normal rectal tone Prostate: Present: enlargement, tenderness (Not unusually tender), boggy - *Routine Extremities Exam Absent: edema - *Routine Neurological Exam Present: alert, oriented X3. Absent: motor deficit, altered mental status - Routine Psychiatric Exam Present: normal affect Results Labs on day of discharge: Labs from last 24 hours 11/11/18 17:08 POC Glucose 109 DS: Diagnosis - Discharge Diagnosis (1) Benign prostatic hyperplasia Status: Acute (2) Abdominal pain Status: Acute (3) CAD (coronary artery disease) Status: Chronic (4) Diabetes Status: Chronic Discharge Plan - Patient Discharge Instructions Patient Instructions: Acute Abdominal Pain, DI for Acute Abdomen - Follow up Plan Disposition: Left Against Medical Advice Home Medications: Home Medications Medication Instructions Recorded Confirmed Type aspirin 81 mg tablet,delayed 81 mg PO DAILY 03/17/18 11/11/18 History release clopidogrel 75 mg tablet 75 mg PO DAILY 03/17/18 11/11/18 History hydrochlorothiazide 25 mg tablet 25 mg PO DAILY 03/17/18 11/11/18 History insulin glargine (U-300) conc. 300 40 unit SQ HS ml 03/17/18 11/11/18 History unit/mL (1.5 mL) subcutaneous pen metformin 1,000 mg tablet 1,000 mg PO BID 03/17/18 11/11/18 History pravastatin 40 mg tablet 40 mg PO HS 03/17/18 11/11/18 History tamsulosin 0.4 mg capsule 0.4 mg PO DAILY 03/17/18 11/11/18 History carvedilol 25 mg tablet 25 mg PO BID tab 10/25/18 11/11/18 History hydralazine 25 mg tablet 25 mg PO BID tab 10/25/18 11/11/18 History insulin aspart (U-100) 100 unit/mL 25 unit SQ TID ml 10/25/18 11/11/18 History (3 mL) subcutaneous pen Lisinopril [Lisinopril 10mg Tab] 10 mg PO BID 11/10/18 11/11/18 History Empagliflozin [Jardiance] 25 mg PO DAILYDM 11/11/18 11/11/18 History Finasteride [Proscar 5mg Tablet] 5 mg PO DAILY 11/11/18 11/11/18 History Gabapentin [Gabapentin 100mg Cap] 100 mg PO TID 11/11/18 11/11/18 History Prescriptions/Medication Reconciliation: No Action metformin 1,000 mg tablet 1,000 mg PO BID clopidogrel 75 mg tablet 75 mg PO DAILY aspirin 81 mg tablet,delayed release 81 mg PO DAILY hydrochlorothiazide 25 mg tablet 25 mg PO DAILY insulin glargine (U-300) conc. 300 unit/mL (1.5 mL) subcutaneous pen 40 unit SQ HS ml hydralazine 25 mg tablet 25 mg PO BID tab carvedilol 25 mg tablet 25 mg PO BID tab insulin aspart (U-100) 100 unit/mL (3 mL) subcutaneous pen 25 unit SQ TID ml pravastatin 40 mg tablet 40 mg PO HS tamsulosin 0.4 mg capsule 0.4 mg PO DAILY Finasteride [Proscar 5mg Tablet] 5 mg PO DAILY Empagliflozin [Jardiance] 25 mg PO DAILYDM Lisinopril [Lisinopril 10mg Tab] 10 mg PO BID Gabapentin [Gabapentin 100mg Cap] 100 mg PO TID
== END 2018-11-11 20:15 | disposition left against medical advice (07) ==
LOC: 2ND 23:01 → ER 23:01 → 2ND 11-11 01:54
PROVIDERS: ADMIT Family Medicine; ATTEND Family Medicine
DX: Z53.21 Procedure and treatment not carried out due to patient leaving prior to being seen by health care provider; N40.0 Benign prostatic hyperplasia without lower urinary tract symptoms; Z83.3 Family history of diabetes mellitus; Z88.8 Allergy status to other drugs, medicaments and biological substances; R10.12 Left upper quadrant pain; Z79.82 Long term (current) use of aspirin; E11.9 Type 2 diabetes mellitus without complications; Z84.1 Family history of disorders of kidney and ureter; Z90.49 Acquired absence of other specified parts of digestive tract; I25.10 Atherosclerotic heart disease of native coronary artery without angina pectoris; Z83.438 Family history of other disorder of lipoprotein metabolism and other lipidemia; I48.91 Unspecified atrial fibrillation; Z95.5 Presence of coronary angioplasty implant and graft; Z82.49 Family history of ischemic heart disease and other diseases of the circulatory system; Z79.02 Long term (current) use of antithrombotics/antiplatelets; Z79.899 Other long term (current) drug therapy
CPT/HCPCS: 36415; 74177; 76705; 80048; 80053; 81001; 82150; 82962; 83605; 83690; 85025; 85651; 86140; 96365; 96367; 96375; 96376; 99283; 99284; G0378; J1956; J2405; Q9967

== ENCOUNTER → 2018-12-01 16:47 | Outpatient (CLI) | payer MEDICARE, OTHER, SELFPAY | PROVIDERS: PCP Family Medicine; Visit Provider Family Medicine | DX: R10.12 Left upper quadrant pain (principal) ==

== ENCOUNTER → 2018-12-02 16:45 | Outpatient (CLI) | payer MEDICARE, OTHER, SELFPAY ==
[2018-12-02 17:43] LABS: Blood Urea Nitrogen 11 mg/dL (7-18); Creatinine,Serum 1.04 mg/dL (0.70-1.30); Estimated Glomerular Filt Rate 71 ml/min (>60); GFR (African American) 86 ML/MIN (>60)
== END ==
PROVIDERS: Visit Provider Family Medicine
DX: R10.12 Left upper quadrant pain (principal)
CPT/HCPCS: 36415; 82565; 84520

== ENCOUNTER → 2018-12-08 09:44 | Outpatient (CLI) | payer MEDICARE, OTHER, SELFPAY ==
--- NOTE | 2018-12-08 09:49 | MR_ITS ---
PROCEDURE: MR ABDOMEN WO/W CON CLINICAL INDICATION: LEFT UPPER QUADRANT PAIN Left upper quadrant pain and tenderness COMPARISON: ABDPELW CT abdomen pelvis w con from 11/10/2018 ABDLM US abdomen limited from 11/11/2018 TECHNIQUE: For routine multiplanar multi echo sequences are performed without and with gadolinium enhancement. A marker is placed on the area of pain and tenderness in the left upper quadrant. FINDINGS: No enhancing lesions are evident. The liver, spleen, adrenal glands, and pancreas have an unremarkable appearance. The there is a 3 cm left renal cyst. Just deep to the placed marker in the left upper quadrant is normal appearing ribs and intercostal muscles. No mass. No lytic or blastic lesions evident at this area. No abnormal signal intensity or abnormal enhancement. No soft tissue thickening. No bony lesions IMPRESSION: Negative MRI of the abdomen without and with contrast. No acute finding. No chest wall or abdominal wall abnormality. 3 cm left renal cyst Dictated by: Danie Rasheed MD 12/11/2018 14:51 Signed by: <Electronically signed by Danie Rasheed MD in [place]> 12/15/2018 09:55
--- NOTE | 2018-12-08 11:21 | HMH.ITSHM ---
Current Home Medications as stated by this patient Apollo Razo or credit representative. []CARVIDOL LISINOPRIL PRAVASTATIN METFORMIN ASPIRIN TAMSULOSIN PLAVIX NOVOLOG AMOLDIPINE
== END ==
PROVIDERS: PCP Family Medicine; Visit Provider Family Medicine
DX: R10.12 Left upper quadrant pain (principal)
CPT/HCPCS: 74183; A9576

== ENCOUNTER → 2018-12-28 10:06 | Outpatient (CLI) | payer MEDICARE, OTHER, SELFPAY ==
[2018-12-28 12:35] LABS: Anion Gap 11.3 mEq/L (5-15); Blood Urea Nitrogen 14 mg/dL (7-18); Calcium 9.2 mg/dL (8.5-10.1); Carbon Dioxide 31 mmol/L (21.0-32.0); Chloride 96 mmol/L (98-107); Creatinine,Serum 0.78 mg/dL (0.70-1.30); Estimated Glomerular Filt Rate 99 ml/min (>60); GFR (African American) 120 ML/MIN (>60); Glucose 283 mg/dL (74-106); Potassium 4.3 mmoL/L (3.5-5.1); Sodium 134 mmol/L (136-145)
[2018-12-30 06:14] LABS: C-Peptide 2.7 ng/mL (1.1-4.4)
== END ==
PROVIDERS: Visit Provider Internal Medicine Endocrinology, Diabetes & Metabolism
DX: E11.65 Type 2 diabetes mellitus with hyperglycemia (principal); Z79.4 Long term (current) use of insulin
CPT/HCPCS: 36415; 80048; 84681

== ENCOUNTER → 2019-04-25 10:02 | Outpatient (CLI) | payer MEDICARE, SELFPAY ==
[2019-04-25 11:57] LABS: Anion Gap 12.9 mEq/L (5-15); Blood Urea Nitrogen 17 mg/dL (7-18); Calcium 9.5 mg/dL (8.5-10.1); Carbon Dioxide 29 mmol/L (21.0-32.0); Chloride 100 mmol/L (98-107); Creatinine,Serum 0.87 mg/dL (0.70-1.30); Estimated Glomerular Filt Rate 88 ml/min (>60); GFR (African American) 106 ML/MIN (>60); Glucose 109 mg/dL (74-106); Potassium 3.9 mmoL/L (3.5-5.1); Sodium 138 mmol/L (136-145)
== END ==
PROVIDERS: Visit Provider Internal Medicine Endocrinology, Diabetes & Metabolism
DX: M79.18 Myalgia, other site (principal)
CPT/HCPCS: 36415; 80048; 84681

== ENCOUNTER → 2019-04-25 10:19 | Outpatient (POV) | payer MEDICARE, SELFPAY ==
[2019-04-25 10:54] VITALS: BP 127/73; PULSE 69; RESP 18; O2SAT 99; BMI 28.1
--- NOTE | 2019-04-25 13:49 | HMH.PMCON ---
Assessment and Plan (1) Myofascial pain Current visit: Yes Status: Chronic Category: Medical Code(s): M79.18 - Myalgia, other site (2) Abdominal pain Current visit: No Status: Chronic Qualifiers: Abdominal location: left upper quadrant Qualified Code(s): R10.12 - Left upper quadrant pain Category: Medical Code(s): R10.9 - Unspecified abdominal pain - Assessment and plan all Dx Assessment and Plan for all problems:: We will set the patient up for abdominal trigger points along with a CT scan of the thoracic and lumbar spine I just want him to rule out any potential nerve impingement were compression fracture. I will follow-up with the patient after this reassess his symptoms at that time he is been instructed to call the office if he has any issues prior to his next appointment. Dr. Pemberton has reviewed this note and agrees with this plan of care. This note was dictated using voice recognition software and may contain errors or omissions HPI - Data of Consult Consult date: 04/25/19 Requesting Physician: Libra Lui APRN Primary Care Provider: Cirilo Mora MD - Consult Narrative Reason for consult: Abdominal pain History of present illness: Mr. Razo is a 68 year old male who presents today for consultation in regards to his left upper quadrant abdominal pain. Patient has had multiple diagnostic tests done on his abdomen that have all returned negative. Patient has what appears to be a muscle spasm going along throughout the whole upper left quadrant of his stomach. Patient has numbness and tingling in this area. It seems to follow a dermatomal path. Patient has not had any evaluation of his vertebrae or nerves. Patient and I discussed procuring some CT scans. We also discussed some trigger point injections and I do believe both of these would be beneficial. CC: Libra Lui APRN [facility] History I have reviewed the patient's past medical history: Yes Medical History: Reports:: Arrhythmia, Atrial Fibrillation, Coronary Artery Disease, Diabetes Mellitus Type 2, Heart Murmur, Hyperlipidemia, Hypertension, Palpitations Denies:: Cancer, Diabetes Mellitus Type 1, Internal Pacemaker, MRSA, Seizures *Have you ever received a pneumonia vaccine?: Yes *Have you received a flu vaccine this season?: Yes Laterality Cases: Right: Arthroscopy Knee Other Surgeries: Yes: Cardiac Catheterization, Cardiac Surgery, Cholecystectomy, Colonoscopy, Coronary Stent, EGD, Hernia Repair, Other. No: Pacemaker Amputation: No Fractures: No - *Social History Smoking Status: Current every day smoker Tobacco Type: cigarettes Alcohol Intake: never Substance Use Type: denies use *Occupational Status:: other Housing: house Household Members: spouse *Travel in the last 8 weeks: None Family Hx:: Coronary Artery Disease, Diabetes, Hyperlipidemia, Hypertension, Kidney Disease Review of Systems - Review of Systems ROS General: no recent weight change, no fever, no sleep disturbances Respiratory: no cough, no shortness of air, no recurring pulmonary infections Cardiovascular/Peripheral Vascular: No chest pain, No palpitations, no edema, no shortness of breath. Gastrointestinal: no new onset incontinence, normal bowel movements reported Genitourinary: no new onset incontinence Musculoskeletal: Abdominal pain, myofascial pain Psychiatric: normal mood/ affect Neurological: [denies new onset weakness in extremities], [denies new onset balance issues] Meds Home Medications Medication Instructions Recorded Confirmed Type aspirin 81 mg tablet,delayed 81 mg PO DAILY 03/17/18 03/21/19 History release clopidogrel 75 mg tablet 75 mg PO DAILY 03/17/18 03/21/19 History hydrochlorothiazide 25 mg tablet 25 mg PO DAILY 03/17/18 03/21/19 History insulin glargine U-300 conc 300 40 unit SQ HS ml 03/17/18 03/21/19 History unit/mL (1.5 mL) subcutaneous pen metformin 1,000 mg tablet 1,000 mg PO BID
== END ==
PROVIDERS: PCP Psychiatry & Neurology Sleep Medicine; Visit Provider Clinical Nurse Specialist Family Health
DX: M79.18 Myalgia, other site (principal); R10.12 Left upper quadrant pain; I48.91 Unspecified atrial fibrillation; I25.10 Atherosclerotic heart disease of native coronary artery without angina pectoris; E11.9 Type 2 diabetes mellitus without complications; I10 Essential (primary) hypertension; E78.5 Hyperlipidemia, unspecified; Z72.0 Tobacco use; Z95.828 Presence of other vascular implants and grafts
CPT/HCPCS: 36415; 80048; 84681; 99202

== ENCOUNTER → 2019-05-03 13:50 | Outpatient (CLI) | payer MEDICARE, SELFPAY | PROVIDERS: PCP Psychiatry & Neurology Sleep Medicine; Visit Provider Clinical Nurse Specialist Family Health | DX: M54.5 Low back pain (principal); M54.6 Pain in thoracic spine ==

== ENCOUNTER → 2019-10-31 08:00 | Outpatient (POV) | payer MEDICARE, SELFPAY ==
[2019-10-31 08:17] VITALS: BP 126/81; PULSE 74; RESP 18; O2SAT 98; BMI 25.5
--- NOTE | 2019-10-31 08:43 | HMH.PAINSOAP ---
[facility] Pain Management SOAP Note Subjective:: Patient is a pleasant 69-year-old white male who presents today for follow-up after a right trochanteric bursa injection and right SI injection. He does have right SI joint pain as well as right hip pain. Patient says that he does have pain while working. He does say when he is not at work, however, his pain is a 1 out of 10. 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 He says that this is when his pain is at its worst. He also reports to have pain through the night that causes him to wake up around 2:58 AM due to the pain. Patient is tender over his right hip and right SI joint. He did get approximately 95% relief after his initial injection and would like to repeat the injection, as his pain is starting to return. He did get relief up until yesterday. Does rate his pain when sitting a 1 out of 10. He does say, however, when he is working his pain is a 7-8 out of 10. Review of Systems General: No recent weight changes, no fever, no sleep disturbances Respiratory: No cough, no shortness of air, no recurring pulmonary infections Cardiovascular/peripheral vascular: No chest pain, no palpitations, no edema, no shortness of breath Gastrointestinal: No new onset incontinence, normal bowel movements reported Genitourinary: No new onset incontinence Musculoskeletal: Back pain, right hip pain Psychiatric: Normal mood/affect Neurological: [Denies weakness in extremities], [denies balance issues] Objective:: Physical exam General: Alert and oriented x3, no acute distress, pleasant and cooperative, [on room air] Lungs: Respirations even and unlabored, symmetrical chest expansion Eyes: PERRL Musculoskeletal: Flexion and extension of bar spine somewhat guarded secondary to pain, deep tendon reflexes normal, strength in upper and lower extremities [5/5], [abnormal gait noted], positive Alisa's test, positive test, positive distraction test Neurological: Speech clear, 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 We will also order him diclofenac gel 1% 4 g topical 4 times daily. He is taking ibuprofen 800 mg 1 tablet p.o. twice daily. We will see him back in the clinic after his injection to reassess his symptoms. Is type II diabetic. He has been educated regarding his blood glucose with his steroid injections. The patient and I specifically discussed risk factors for COVID19. These risks include, but are not limited to age greater than 60, heart or lung disease, diabetes, immunosuppression, and travel. We also discussed NSAIDs may worsen COVID19 infection or symptoms. Patient should not use NSAIDs to treat COVID19 signs or symptoms. Patient was also informed that any type of corticosteroid of any form (oral or injection) will decrease the patient's immune system response and may increase the likelihood of COVID19 infection and symptoms. [facility] History I have reviewed the patient's past medical history: Yes Medical History: Reports:: Arrhythmia, Atrial Fibrillation, Coronary Artery Disease, Diabetes Mellitus Type 2, Heart Murmur, Hyperlipidemia, Hypertension, Palpitations Denies:: Cancer, Diabetes Mellitus Type 1, Internal Pacemaker, MRSA, Seizures *Have you ever received a pneumonia vaccine?: Yes *Have you received a flu vaccine this season?: Yes Laterality Cases: Right: Arthroscopy Knee Other Surgeries: Yes: Cardiac Catheterization, Cardiac Surgery, Cholecystectomy, Colonoscopy, Coronary Stent, EGD, Hernia Repair, Other. No: Pacemaker Amputation: No Fractures: No - *Social History Smoking Status: Former smoker Tobacco Type: cigarettes Alcohol Intake: never Substance Use Type: denies use *Occupational Status:: other Housing: house Household Members: spouse *Travel in the last 8 weeks: None Family Hx:: Coronary A
--- NOTE | 2019-10-31 08:56 | HMH.PAINSOAP ---
[facility] Pain Management SOAP Note Subjective:: Patient is a pleasant 69-year-old white male who presents today for follow-up. He is referred to us for radicular pain to his abdomen. Patient was seen in the clinic in April for trigger point injections for pain to his left upper and lower quadrant of his abdomen. Patient has had multiple referrals to various physicians since seeing us. Patient did undergo trigger point injections for which she did not get any relief. Patient initially thought that the raised areas to his left side were due to hernias. He was referred to a specialist at [facility] who informed him that he does not have hernias in the area. He does have 2 raised areas that cause him severe pain with bowel stimulation. He says that he does use a TENS unit that gives him relief. He places the TENS unit on his low back area. Patient says that he has been told by multiple providers that the pain in his left upper and lower quadrant are related to problems from his back. He has had an MRI of his abdomen, however, he has not had any imaging of his spine. Patient is on anticoagulation therapy. He has 7 stents and is currently on Plavix. He says this is prescribed per Dr. Ling. It does rate his pain an 8 out of 10. He says that he has been living with this pain for greater than 9 months and not gotten any relief. He is on gabapentin. Review of Systems General: No recent weight changes, no fever, no sleep disturbances Respiratory: No cough, no shortness of air, no recurring pulmonary infections Cardiovascular/peripheral vascular: No chest pain, no palpitations, no edema, no shortness of breath Gastrointestinal: No new onset incontinence, normal bowel movements reported Genitourinary: No new onset incontinence Musculoskeletal: Left upper quadrant left lower quadrant pain Psychiatric: Normal mood/affect Neurological: [Denies weakness in extremities], [denies balance issues] Objective:: Physical exam General: Alert and oriented x3, no acute distress, pleasant and cooperative, [on room air] Lungs: Respirations even and unlabored, symmetrical chest expansion Eyes: PERRL Musculoskeletal: Left upper quadrant and left lower quadrant abdomen guarded secondary to pain, deep tendon reflexes normal, strength in upper and lower extremities [5/5], [abnormal gait noted] Neurological: Speech clear, 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 He does feel that the pain is radiating from his spine. Patient did use a TENS unit that he says did give him some relief to his abdominal area. We will see him back in the clinic after his MRI to discuss a further plan of care. He has been instructed to contact clinic if he has any concerns before his next appointment. The patient and I specifically discussed risk factors for COVID19. These risks include, but are not limited to age greater than 60, heart or lung disease, diabetes, immunosuppression, and travel. We also discussed NSAIDs may worsen COVID19 infection or symptoms. Patient should not use NSAIDs to treat COVID19 signs or symptoms. Patient was also informed that any type of corticosteroid of any form (oral or injection) will decrease the patient's immune system response and may increase the likelihood of COVID19 [address] Pemberton has reviewed this note and agrees with this plan of care. This note was dictated using voice recognition software and make contain errors or omissions. [facility] History I have reviewed the patient's past medical history: Yes Medical History: Reports:: Arrhythmia, Atrial Fibrillation, Coronary Artery Disease, Diabetes Mellitus Type 2, Heart Murmur, Hyperlipidemia, Hypertension, Palpitations Denies:: Cancer, Diabetes Mellitus Type 1, Internal Pacemaker, MRSA, Seizures *Have you ever received a pneumonia vaccine?: Yes *Have you received a flu vacc
== END ==
PROVIDERS: PCP Family Medicine; Visit Provider Clinical Nurse Specialist Family Health
DX: M46.1 Sacroiliitis, not elsewhere classified (principal); M70.61 Trochanteric bursitis, right hip
CPT/HCPCS: 99212

== ENCOUNTER → 2020-03-13 16:16 | Outpatient (CLI) | payer MEDICARE, SELFPAY ==
[2020-03-13 19:16] LABS: Coronavirus 19 IgG Antibody Negative (Negative); Coronavirus 19 IgM Antibody Negative (Negative)
== END ==
PROVIDERS: Visit Provider Internal Medicine Gastroenterology
DX: Z01.818 Encounter for other preprocedural examination (principal); R10.12 Left upper quadrant pain
CPT/HCPCS: 36415; 86328

== ENCOUNTER 2020-03-16 07:13 | Day surgery (SDC) | payer MEDICARE, SELFPAY ==
[2020-03-12 14:32] VITALS: BMI 25.5
[2020-03-16] VITALS (7 sets, daily range): BP systolic 105–138; BP diastolic 63–72; PULSE 67–75; RESP 18; TEMP 36.6; O2SAT 96–99
[2020-03-16 07:45] LABS: POC Glucose,Bedside 243 (70-110)
--- NOTE | 2020-03-16 07:45 | SUR.PREOP ---
Jonny LEON NOTIFIED OF FSBS 243. NO NEW ORDERS.
--- NOTE | 2020-03-16 08:35 | HMH.ANESCL ---
[facility] Anesthesia Checklist - Patient Identification Patient Identification: Arm Band - Structural Data Admitted From: Home Planned Operative Procedure/s: colonoscopy Consent for Planned Operative Procedure(s) Verified: Yes Verified Documents: Surgical Consent, History and Physical - NPO Status Verified Time NPO: 00:00 - Additional verifications Anesthesia Reactions: No Hx Blood Transfusions: No - Airway Assessment C-Spine Mobility Assessed: Yes (mp2) TMJ Mobility Assessed: Yes Dentition: Good Dentition - Neurological Assessment Level of Consciousness: Awake, Alert - Anesthesia Plan Anesthesia Risk discussed: Yes Anesthesia Plan: Verified ASA Class: III Anesthesia Type: MAC [facility] History I have reviewed the patient's past medical history: Yes Medical History: Reports:: Arrhythmia, Atrial Fibrillation, Coronary Artery Disease, Diabetes Mellitus Type 2, Heart Murmur, Hyperlipidemia, Hypertension, Palpitations Denies:: Cancer, Diabetes Mellitus Type 1, Internal Pacemaker, MRSA, Seizures *Have you ever received a pneumonia vaccine?: Yes *Have you received a flu vaccine this season?: Yes Anesthesia experience/problems:: nac Laterality Cases: Right: Arthroscopy Knee Other Surgeries: Yes: Cardiac Catheterization, Cardiac Surgery, Cholecystectomy, Colonoscopy, Coronary Stent, EGD, Hernia Repair, Other. No: Pacemaker Amputation: No Fractures: No - *Social History Last grade of school completed: Some college Smoking Status: Former smoker Tobacco Type: cigarettes Alcohol Intake: never Substance Use Type: denies use *Occupational Status:: retired Housing: house Household Members: spouse *Travel in the last 8 weeks: None Family Hx:: Coronary Artery Disease, Diabetes, Hyperlipidemia, Hypertension, Kidney Disease
--- NOTE | 2020-03-16 08:38 | HMH.PROC ---
[facility] Procedure Note Procedure Note:: Colonoscopy Procedure Report: Colonoscopy with cold snare polypectomy Endoscopist: Man Temple II, MD Referring physician: David Mora MD Date of Procedure: March 16, 2020 Equipment: Olympus 180 variable stiffness pediatric colonoscope Sedation: MAC sedation Indication: Mr. Razo is a 69-year-old gentleman here for diagnostic colonoscopy. He has had chronic constipation and left upper quadrant abdominal pain. The patient reports bloating and a knot in the left upper quadrant. He does take Linzess 145 mcg p.o. every morning and combine fiber bowel regimen (MiraLAX plus Metamucil). He still feels as if he does not fully evacuate. He did have a colonoscopy in February 2019 showing 3 tubular adenomas. He reports no rectal bleeding but does have some hemorrhoidal prolapse. He reports no weight loss or family history of colon cancer. Procedure: Prior to the procedure, a history and physical exam was performed, and patient's medications and allergies were reviewed. The risks, benefits and alternatives of the sedation and procedure were discussed with the patient. All questions were answered and informed consent was obtained. The patient was brought to the procedure room. Patient identification and proposed procedure were verified by the physician and the nurse. The patient was placed in a left lateral decubitus position and the scope was passed under direct vision. Throughout the procedure, the patient's blood pressure, pulse, and oxygen saturations were monitored continuously. The colonoscopy was accomplished without difficulty. The patient tolerated the procedure well. Findings: On digital rectal examination there was normal rectal tone. There were no external hemorrhoids. The prostate was 2+, smooth, symmetric without nodules. The colonoscope was introduced through the anal canal to the rectum and advanced to the cecum. The ileocecal valve and appendiceal orifice were identified. The scope was advanced a short distance into the ileum which appeared grossly normal. The scope was then withdrawn into the colon. There were 2 polyps (ascending x1 (5 mm) and transverse x1 (2 to 3 mm)) that were both removed via cold snare polypectomy. The ascending polyp was retrieved. There were scattered extensive diverticuli throughout the descending and sigmoid colon (LEFT colon). The rectum itself was normal. Upon retroflexion within the rectum there were grade 2 internal hemorrhoids. The preparation was good throughout with [place] Preparation Score of 8 out of 9. The cecal time was 12 minutes. Impression: 1. Diminutive colonic polyps x2 2. Extensive left-sided diverticulosis 3. Grade 2 internal hemorrhoids Plan: I will follow up the polyp pathology and recommend repeat colonoscopy again in 5-7 years based upon the polyp histology. 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 I would recommend MiraLAX plus Konsyl p.o. twice daily plus the addition of Motegrity, Zelnorm or continuation of Linzess. We will discuss dietary measures as well. I would also consider additional treatment for visceral sensitivity (buspirone).
== END 2020-03-16 10:09 | disposition home or self-care (01) ==
LOC: OUTP 07:14
PROVIDERS: PCP Family Medicine; Visit Provider Internal Medicine Gastroenterology
PROC: 0DJD8ZZ Inspection of Lower Intestinal Tract, Via Natural or Artificial Opening Endoscopic (ICD-10-PCS; CPT 45378; principal; 2020-03-16 08:30)
DX: Z87.19 Personal history of other diseases of the digestive system (principal); K63.5 Polyp of colon; K57.30 Diverticulosis of large intestine without perforation or abscess without bleeding; K64.1 Second degree hemorrhoids; E11.9 Type 2 diabetes mellitus without complications; I48.91 Unspecified atrial fibrillation; I25.10 Atherosclerotic heart disease of native coronary artery without angina pectoris; E78.5 Hyperlipidemia, unspecified; I10 Essential (primary) hypertension; R00.2 Palpitations; Z88.6 Allergy status to analgesic agent; Z79.899 Other long term (current) drug therapy
CPT/HCPCS: 45385; 82962; 88305

== ENCOUNTER → 2020-07-25 14:31 | Outpatient (POV) | payer MEDICARE, SELFPAY | DX: Z00.00 Encounter for general adult medical examination without abnormal findings (principal) ==

== ENCOUNTER → 2020-10-10 10:32 | Outpatient (CLI) | payer MEDICARE, SELFPAY ==
[2020-10-10 10:54] LABS: Basophils # 0.1 K/mm3 (0-0.2); Basophils % 0.6 % (0.1-2.0); Eosinophils # 0.2 K/mm3 (0.0-0.4); Eosinophils % 1.5 % (0.1-12.0); Hematocrit 38.8 % (42.0-52.0); Hemoglobin 13.6 g/dL (14.1-18.0); Lymphocytes # 1.4 K/mm3 (0.7-4.5); Lymphocytes % 12.9 % (10-50); Mean Corpuscular Hemoglobin 29.6 pg (27.0-31.2); Mean Corpuscular Volume 84.6 fl (80-94); Mean Platelet Volume 8.8 fl (7.4-10.4); Monocytes # 0.7 K/mm3 (0.1-1.0); Monocytes % 6.3 % (1.7-9.3); Neutrophils # 8.8 K/mm3 (1.8-7.8); Neutrophils % 78.7 % (37.0-80.0); Platelet Count 201 K/mm3 (142-424); Red Blood Count 4.59 M/mm3 (4.60-6.20); Red Cell Distribution Width 13.2 % (11.5-17.5); White Blood Count 11.1 K/mm3 (4.8-10.8)
[2020-10-10 11:14] LABS: Chloride 97 mmol/L (98-107); Sodium 136 mmol/L (136-145)
[2020-10-10 11:15] LABS: Potassium 4.2 mmoL/L (3.5-5.1)
[2020-10-10 11:17] LABS: Blood Urea Nitrogen 14 mg/dl (9-20); Estimated Glomerular Filt Rate 112 ml/min (>60); GFR (African American) 135 ML/MIN (>60)
[2020-10-10 11:18] LABS: Anion Gap 13.2 mEq/L (5-15); Calcium 9.3 mg/dl (8.4-10.2); Carbon Dioxide 30 mmol/L (22.0-30.0); Glucose 308 mg/dl (74-100)
--- NOTE | 2020-10-10 13:56 | US_ITS ---
APPROVED REPORT Exam Type: Ankle to Brachial Index Miner Operator: JINNY/AXEL Indications Claudication: Bilaterally History of Smoking CAD Bilateral calf pain Risk Factors Hypertension CAD Hyperlipidemia Cardiac Disease Pressures/Indices Right Indices Left Indices Brachial 130.00 mmHg Brachial 144.00 mmHg Low Thigh 174.00 mmHg 1.21 Low Thigh 170.00 mmHg 1.18 Calf 149.00 mmHg 1.03 Calf 163.00 mmHg 1.13 Ankle(PT) 179.00 mmHg 1.24 Ankle(PT) 166.00 mmHg 1.15 Ankle(DP) 170.00 mmHg 1.18 Ankle(DP) 152.00 mmHg 1.06 Digit 103.00 mmHg 0.72 Digit 135.00 mmHg 0.94 Findings Right ACACIA: 1.24 Left ACACIA:1.15 Right TBI: 0.72 Left TBI: 0.94 Conclusion Right ACACIA: 1.24 Left ACACIA:1.15 Right TBI: 0.72 Left TBI: 0.94 Normal appearing resting noninvasive lower extremity arterial study. Electronically signed by : Danie Rasheed MD 10/10/2020 16:51:35
== END ==
PROVIDERS: PCP Family Medicine; Visit Provider Urology
DX: E78.5 Hyperlipidemia, unspecified (principal); I11.9 Hypertensive heart disease without heart failure; I20.9 Angina pectoris, unspecified; I48.91 Unspecified atrial fibrillation; I70.213 Atherosclerosis of native arteries of extremities with intermittent claudication, bilateral legs; Z01.812 Encounter for preprocedural laboratory examination; Z11.52 Encounter for screening for COVID-19
CPT/HCPCS: 36415; 80048; 85025; 93923; U0003

== ENCOUNTER 2020-10-11 08:08 | Day surgery (SDC) | payer MEDICARE, SELFPAY ==
[2020-10-11] VITALS (17 sets, daily range): BP systolic 110–147; BP diastolic 55–86; PULSE 55–67; RESP 16–18; O2SAT 94–98; BMI 26.4
--- NOTE | 2020-10-11 | IR_ITS ---
APPROVED REPORT Patient Location: Outpatient Elementary Education Teacher: ZULEYMA Durán RT (R) PROCEDURES Left heart catheterization Left ventriculogram Selective coronary angiogram INDICATION Known coronary disease, Accelerated angina pectoris, Informed consent was obtained prior to the procedure. COMPLICATIONS NONE Estimated Blood Loss: LESS THAN 10 ML TECHNIQUE One percent lidocaine was used to anesthetize the right groin. The right femoral artery was accessed via the Seldinger technique. A 4-Iraqi sheath was placed in the right femoral artery. The JL-4 and JR-4 catheter was also used to perform left heart catheterization left ventriculogram and selective coronary angiogram. At the end of the procedure the patient was transferred to the post-op holding area in stable condition for arterial sheath removal. ANGIOGRAPHIC RESULTS The left main artery Normal The left anterior descending artery Has a stent in the ostial segment which is widely patent with 30% in-stent restenosis followed by wide patency into the mid segment of the LAD with excellent transitioning. There is an additional mid vessel 30 to 40% stenosis and a distal concentric 50% stenosis in the distal portion of the LAD and a 2 mm vessel. The circumflex artery Is a dominant vessel and widely patent in the proximal and mid segment. The first obtuse marginal artery is 1 mm in diameter and has diffuse 50% stenoses. The second obtuse marginal artery is 1.5 mm in diameter and has a mid vessel 90% stenosis. The terminal obtuse marginal artery has 50% stenosis The right coronary artery Is nondominant and has stents in the proximal segment which are widely patent free of in-stent restenosis. There are additional mid vessel 30 to 40% stenoses and a distal 50 to 60% stenosis The MOJICA ventriculogram reveals Preserved at 55% The left ventricular end-diastolic pressure 10 mmHg IMPRESSION Diffuse coronary disease as described above Preserved ejection fraction Normal left ventricular end-diastolic pressure PLAN 1. Is difficult to determine exactly which lesion is producing angina. I would not recommend stenting the mid to distal LAD due to its small caliber. It is a patent vessel. 2. While the second obtuse marginal artery is large enough to revascularize I believe a 2 mm stent is probably too big for this vessel and I would not recommend a 1.5 mm balloon at this time. Patient's coronary artery disease should be aggressively medically managed with maximal antianginal medications. Only if patient's symptoms are recalcitrant what I consider revascularizing the second obtuse marginal artery 3. Aggressive risk factor modification Electronically signed by : Zack Ling, 10/11/2020 10:36:59
== END 2020-10-11 12:41 | disposition home or self-care (01) ==
LOC: CATHLAB 08:10
PROVIDERS: PCP Family Medicine; Visit Provider Internal Medicine
DX: I25.118 Atherosclerotic heart disease of native coronary artery with other forms of angina pectoris (principal); E11.9 Type 2 diabetes mellitus without complications; Z79.4 Long term (current) use of insulin; I48.0 Paroxysmal atrial fibrillation; I11.9 Hypertensive heart disease without heart failure; E78.5 Hyperlipidemia, unspecified; Z79.899 Other long term (current) drug therapy; I70.223 Atherosclerosis of native arteries of extremities with rest pain, bilateral legs; Z79.01 Long term (current) use of anticoagulants
CPT/HCPCS: 93458; 99152; C1725; C1769; J1644; Q9967

== ENCOUNTER 2020-11-30 19:45 | Emergency (ER) | payer MEDICARE, SELFPAY ==
[2020-11-30 19:57] VITALS: BP 145/86; PULSE 84; RESP 18; TEMP 36.8; O2SAT 98; BMI 24.0
[2020-11-30 20:10] VITALS: BP 145/86; PULSE 84; RESP 18; TEMP 36.8; O2SAT 98
--- NOTE | 2020-11-30 20:29 | CT_ITS ---
PROCEDURE INFORMATION: Exam: CT Abdomen And Pelvis With Contrast Exam date and time: 11/30/20 08:29 PM Age: 70 years old Clinical indication: Prior surgery; Surgery date: 6+ months; Surgery type: Hernia surgeries gb; Patient HX: Vomiting x 5 days; Additional info: Abd pain TECHNIQUE: Imaging protocol: Computed tomography of the abdomen and pelvis with contrast. Radiation optimization: All CT scans at this facility use at least one of these dose optimization techniques: automated exposure control; mA and/or kV adjustment per patient size (includes targeted exams where dose is matched to clinical indication); or iterative reconstruction. Contrast material: ISOVUE; Contrast volume: 75 ml; Contrast route: IV; COMPARISON: MR ABDOMEN WO/W CON 12/08/18 10:14 AM FINDINGS: Tubes, catheters and devices: None noted. Lungs: Lung bases appear clear. Heart: No significant coronary calcifications. No cardiomegaly. No significant pericardial effusion. Liver: Normal. No mass. Gallbladder and bile ducts: Cholecystectomy. No ductal dilation. Pancreas: Normal. No ductal dilation. Spleen: Calcified splenic granulomas. No splenomegaly. Adrenal glands: Normal. No mass. Kidneys and ureters: Simple cysts bilateral renal midpole. Punctate nonobstructive calcifications right upper pole. No hydronephrosis. Stomach and bowel: Colonic diverticulosis without diverticulitis. No obstruction. No mucosal thickening. Appendix: No evidence of appendicitis. Intraperitoneal space: Unremarkable. No free air. No significant fluid collection. Retroperitoneal space: No significant retroperitoneal inflammatory changes are noted. Vasculature: Unremarkable. No abdominal aortic aneurysm. Lymph nodes: Unremarkable. No enlarged lymph nodes. Urinary bladder: Unremarkable as visualized. Reproductive: Unremarkable as visualized. Bones/joints: Unremarkable. No acute fracture. Soft tissues: Unremarkable. IMPRESSION: No acute findings. COMMENTS: Consistent with the [employer]'s Incidental Findings Committee white paper (J Am Jadyn Radiol 2018): Any incidental renal lesion less than 1 cm or classified as too small to characterize, or any incidental cystic renal lesion characterized as simple-appearing, is likely benign. No follow-up imaging is recommended for these lesions per consensus recommendations based on imaging criteria.
--- NOTE | 2020-11-30 20:52 | HMH.EDNVD ---
ED Disposition Clinical Impression: Abdominal pain Qualifiers: Abdominal location: epigastric Qualified Code(s): R10.13 - Epigastric pain Disposition: Home, Self-Care Condition on Discharge: Good Instructions: DI for Nausea -- Adult Additional Instructions: see dr nance in am Prescriptions: Pantoprazole Sodium [Protonix 40mg tablet] 40 mg PO DAILY #30 tab Transmission Status: Pending to [facility] ondansetron HCL [Zofran 4mg Tab] 4 mg PO TID #30 tab Transmission Status: P[facility] Referrals: Alice Nance MD [Primary Care Provider] - - Critical Care Critical Care Time: No Attestation: On 11/30/20, the high probability of a clinically significant, sudden or life threatening deterioration of the following system(s) required my full and direct attention, intervention and personal management. The time I documented below is in addition to time spent performing reported procedures but includes the following listed in this critical care notation. Medical Decision Making - Medical Records Medical records reviewed: Yes: I reviewed the patient's medical records. - Parker Inquiry Pt receiving controlled substance: No Vital Signs: 11/30/20 19:57 11/30/20 20:10 Temperature 98.3 F 98.3 F Temperature Source Oral Oral Pulse Rate 84 Pulse Rate [Left Brachial] 84 Respiratory Rate 18 18 Blood Pressure 145/86 H Blood Pressure [Left Arm] 145/86 H Blood Pressure Mean [Left Arm] 105 Blood Pressure Source Automatic Cuff Blood Pressure Source [Left Arm] Automatic Cuff Blood Pressure Position Sitting Blood Pressure Position [Left Arm] Supine 02 Sat by Pulse Oximetry 98 98 Oxygen Delivery Method Room Air Room Air - Lab Data Lab results reviewed: Yes: I reviewed the patient's lab results. Lab Results 11/30/20 20:45: WBC 10.8, RBC 5.07, Hgb 14.9, Hct 42.8, MCV 84.5, MCH 29.5, MCHC 34.9, RDW 13.5, Plt Count 243, MPV 7.5, Neut % (Auto) 72.0, Lymph % (Auto) 17.8, [place] % (Auto) 7.5, Eos % (Auto) 1.9, Baso % (Auto) 0.7, Neut # (Auto) 7.8, Lymph # (Auto) 1.9, [place] # (Auto) 0.8, Eos # (Auto) 0.2, Baso # (Auto) 0.1, ESR 18 11/30/20 20:45: Sodium 134 L, Potassium 4.2, Chloride 95 L, Carbon Dioxide 29, Anion Gap 14.2, BUN 15, Creatinine 0.80, Estimated Creat Clear 71, Estimated GFR 96, Est GFR ( Amer) 116, Glucose 219 H, Calcium 9.6, Total Bilirubin 0.7, AST 21, ALT 16, Alkaline Phosphatase 94, C-Reactive Protein 1.8, Total Protein 7.7, Albumin 4.9, Globulin 2.8, Albumin/Globulin Ratio 1.8, Amylase 63, Lipase 214, Procalcitonin 0.105 11/30/20 22:50: Urine Color Dk yellow, Urine Appearance Clear, Urine pH 6.0, Ur Specific Imperial 1.010, Urine Protein Trace, Urine Glucose (UA) 1+, Urine Ketones 1+, Urine Blood Negative, Urine Nitrate Negative, Urine Bilirubin Negative, Urine Urobilinogen 0.2, Ur Leukocyte Esterase Negative, Amorphous Sediment Trace Result diagrams: 11/30/20 20:45 11/30/20 20:45 Orders (Tests/Meds): ED MEDICATIONS Generic Name Dose Route Start Last Admin Trade Name Freq PRN Reason Stop Dose Admin Sodium Chloride 1,000 mls @ 999 mls/hr 11/30/20 20:30 11/30/20 20:56 Sod Chlor 0.9% 1000ml Bag IV 11/30/20 21:30 999 mls/hr .Q1H1M BRAULIO Administration Sodium Chloride 8 ml 11/30/20 20:29 Sodium Chloride 0.9% 10ml Vial IV 12/30/20 20:28 NEEDED PRN dilute pepcid Discontinued Medications Generic Name Dose Route Start Last Admin Trade Name Freq PRN Reason Stop Dose Admin Famotidine 20 mg 11/30/20 20:29 11/30/20 20:57 Famotidine 20mg/2ml Vial IV 11/30/20 20:30 20 mg ONCE ONE Administration Iopamidol 75 ml 11/30/20 22:05 11/30/20 22:06 Iopamidol-370 (76%);100ml Bottle IV 11/30/20 22:06 75 ml ONCE ONE Administration Ketorolac Tromethamine 30 mg 11/30/20 20:29 11/30/20 20:57 Ketorolac 30mg/Ml Vial IV 11/30/20 20:30 30 mg ONCE ONE Administration Metoclopramide HCl 10 mg 11/30/20 20:29 11/30/20 20:
[2020-11-30 21:08] LABS: Basophils # 0.1 K/mm3 (0-0.2); Basophils % 0.7 % (0.1-2.0); Eosinophils # 0.2 K/mm3 (0.0-0.4); Eosinophils % 1.9 % (0.1-12.0); Hematocrit 42.8 % (42.0-52.0); Hemoglobin 14.9 g/dL (14.1-18.0); Lymphocytes # 1.9 K/mm3 (0.7-4.5); Lymphocytes % 17.8 % (10-50); Mean Corpuscular HGB Conc 34.9 g/dL (31.8-35.4); Mean Corpuscular Hemoglobin 29.5 pg (27.0-31.2); Mean Corpuscular Volume 84.5 fl (80-94); Mean Platelet Volume 7.5 fl (7.4-10.4); Monocytes # 0.8 K/mm3 (0.1-1.0); Monocytes % 7.5 % (1.7-9.3); Neutrophils # 7.8 K/mm3 (1.8-7.8); Platelet Count 243 K/mm3 (142-424); Red Blood Count 5.07 M/mm3 (4.60-6.20); Red Cell Distribution Width 13.5 % (11.5-17.5); White Blood Count 10.8 K/mm3 (4.8-10.8)
[2020-11-30 21:16] LABS: Alanine Aminotransferase 16 U/L (12-78); Albumin Level 4.9 g/dl (3.5-5.0); Albumin/Globulin Ratio 1.8 (1.1-1.8); Alkaline Phosphatase 94 U/L (38-126); Amylase 63 U/L (30-110); Anion Gap 14.2 mEq/L (5-15); Aspartate Amino Transferase 21 U/L (17-59); Bilirubin,Total 0.7 mg/dl (0.2-1.3); Blood Urea Nitrogen 15 mg/dl (9-20); Calcium 9.6 mg/dl (8.4-10.2); Carbon Dioxide 29 mmol/L (22.0-30.0); Chloride 95 mmol/L (98-107); Creatinine Clearance Estimated 71 mL/min (50-200); Estimated Glomerular Filt Rate 96 ml/min (>60); GFR (African American) 116 ML/MIN (>60); Globulin 2.8 g/dL (1.3-3.2); Glucose 219 mg/dl (74-100); Lipase 214 U/L (23-300); Potassium 4.2 mmoL/L (3.5-5.1); Sodium 134 mmol/L (136-145); Total Protein,Serum 7.7 g/dl (6.3-8.2)
[2020-11-30 21:21] LABS: C-Reactive Protein 1.8 mg/L (0-4)
[2020-11-30 21:32] LABS: Procalcitonin 0.105 ng/mL (0.0-2.0)
[2020-11-30 21:48] LABS: Erythrocyte Sedimentation Rate 18 mm/hr (0-20)
[2020-11-30 22:55] LABS: Microscopic, Urine URINE MICROSCOPIC (MICROSCOPIC)
[2020-11-30 22:57] LABS: Appearance,Urine CLEAR (Clear); Bilirubin,Urine Negative (Negative); Blood, Urine Negative (Negative); Color,Urine DK YELLOW (Yellow); Glucose,Urine (UA) 1+ (Negative); Ketones,Urine 1+ (Negative); Leukocyte Esterase,Urine Negative (Negative); Nitrate,Urine Negative (Negative); Protein,Urine TRACE (Negative); Urobilinogen,Urine 0.2 EU/dl (0.2)
[2020-11-30 23:12] LABS: Amorphous Sediment,Urine Trace /lpf
[2020-11-30 23:39] VITALS: BP 138/78; PULSE 82; RESP 18; TEMP 36.8; O2SAT 99
== END 2020-11-30 23:44 | disposition home or self-care (01) ==
PROVIDERS: Emergency Provider Emergency Medicine; PCP Family Medicine
DX: R10.13 Epigastric pain (principal); E11.9 Type 2 diabetes mellitus without complications; E78.5 Hyperlipidemia, unspecified; I25.10 Atherosclerotic heart disease of native coronary artery without angina pectoris; I10 Essential (primary) hypertension; I48.0 Paroxysmal atrial fibrillation; Z79.899 Other long term (current) drug therapy
CPT/HCPCS: 74177; 80053; 81001; 82150; 83690; 84145; 85025; 85651; 86140; 96365; 96375; 99283; J2405; Q9967

== ENCOUNTER → 2021-02-09 11:29 | Outpatient (CLI) | payer MEDICARE, SELFPAY ==
--- NOTE | 2021-02-09 11:35 | XR_ITS ---
PROCEDURE INFORMATION: Exam: XR Right Hip Exam date and time: 02/09/2021 11:35 AM Age: 70 years old Clinical indication: Hip pain; Right hip; Patient HX: Fal x 1 week; Additional info: Right hip pain TECHNIQUE: Imaging protocol: XR Right hip. Views: 2 or 3 views hip with pelvis when performed. COMPARISON: CT ABDOMEN PELVIS W CON 11/30/2020 9:54 PM FINDINGS: Bones/joints: Mild joint space narrowing in both hips may represent mild degenerative changes. There is no evidence of acute fracture.There is no evidence of malalignment or dislocation. Soft tissues: Unremarkable. IMPRESSION: There is no evidence of acute fracture.There is no evidence of malalignment or dislocation.
--- NOTE | 2021-02-09 11:36 | XR_ITS ---
PROCEDURE INFORMATION: Exam: XR Right Knee Exam date and time: 02/09/2021 11:36 AM Age: 70 years old Clinical indication: Pain; Knee; Right; Prior surgery; Patient HX: Fall x 1 week; Additional info: Right knee pain TECHNIQUE: Imaging protocol: XR Right knee. Views: 3 views. COMPARISON: LEAJW/ORT MRI-LOW EXT ANY JOINT W/O-RT 08/17/2014 9:57 AM FINDINGS: Bones/joints: Mild joint space narrowing and osteophyte formation in the patellofemoral joint consistent with degenerative changes. There is no evidence of acute fracture.There is no evidence of malalignment or dislocation. Soft tissues: Normal. IMPRESSION: 1. Mild joint space narrowing and osteophyte formation in the patellofemoral joint consistent with degenerative changes. 2. There is no evidence of acute fracture.There is no evidence of malalignment or dislocation.
== END ==
PROVIDERS: PCP Family Medicine; Visit Provider Family Medicine
DX: M25.551 Pain in right hip (principal); M25.561 Pain in right knee
CPT/HCPCS: 73502; 73562

== ENCOUNTER → 2021-04-03 08:47 | Outpatient (CLI) | payer MEDICARE, SELFPAY ==
--- NOTE | 2021-04-03 08:50 | MR_ITS ---
PROCEDURE INFORMATION: Exam: MR Right Lower Extremity Joint Without Contrast, Knee Exam date and time: 04/03/2021 8:50 AM Age: 70 years old Clinical indication: Pain and injury or trauma; Blunt trauma; Right; Patient HX: RT knee pain S/P fall TECHNIQUE: Imaging protocol: MR of the Right lower extremity joint without contrast. Exam focused on the knee. COMPARISON: [facility]AJW/ORT MRI-LOW EXT ANY JOINT W/O-RT 08/17/2014 9:57 AM FINDINGS: Bones and cartilage: No fracture or suspicious marrow signal. Mild tricompartmental osteoarthritis without osteochondral lesion. Small effusion. Joint spaces: No joint effusion. Medial meniscus: Chronic deficiency body and posterior horn of the medial meniscus, either degenerative in atretic or possibly previous partial meniscectomy. No acute tear is seen. No other internal derangement. Cyst impression. Lateral meniscus: Unremarkable. No tear. Anterior cruciate ligament: Unremarkable. No tear. Posterior cruciate ligament: Unremarkable. No tear. Medial capsule and supporting structures: Unremarkable. No tear. Lateral capsule and supporting structures: Unremarkable. No tear. Extensor mechanism of knee: Unremarkable. No tear. Muscles: Unremarkable. Soft tissues: See Medial meniscus finding. IMPRESSION: 1. No fracture or suspicious marrow signal. 2. Mild tricompartmental osteoarthritis without osteochondral lesion. 3. Small effusion.
== END ==
PROVIDERS: PCP Family Medicine; Visit Provider Orthopaedic Surgery Adult Reconstructive Orthopaedic Surgery
DX: M25.561 Pain in right knee (principal); M79.605 Pain in left leg
CPT/HCPCS: 73721

== ENCOUNTER → 2021-11-25 09:48 | Outpatient (CLI) | payer MEDICARE, SELFPAY ==
--- NOTE | 2021-11-25 09:48 | CA_ITS ---
APPROVED REPORT EXAM: Comprehensive 2D, Doppler, and color-flow Echocardiogram Top Executive: REKHA Ruffin, RVS Ht: 5 ft 8 in Wt: 164lbs BSA: 1.88 BP: 115/53 mmHg Indications: CAD, HX-AFIB, HLD, DM, PALPITATIONS 2D Dimensions Aortic Root 3.23 cm LA Volume 36.90 mL Left Atrium 2.93 cm LA Volume Index 19.60 mL/m2 (M/F) 16-34 LVOT 1.86 cm (M/F) 1.5-2.5 M-Mode Dimensions RVDd 2.85 cm (0.9-2.6) LA Diam 3.54 cm (1.9-4.0) LVDd 3.99 cm (3.5-5.7) Ao Diam 3.47 cm (2.0-3.7) LVDs 2.58 cm (3.5-5.7) IVSd 0.68 cm (0.6-1.1) PWd 0.91 cm (0.6-1.1) EF (Teich) 65.40% EPSs 0.34 cm FS 35.30% EDV (Teich) 69.60 mL TAPSE 1.94 (<1.7) ESV (Teich) 24.10 mL LV Diastology E Decel Time 253.00 (160-240 msec) E/A Ratio 0.98 MED E' 6.00 (< 7 cm/sec) MED A' 10.30 cm/s E'/MED E' Ratio 11.60 (>14) LAT E' 6.60 (<10 cm/sec) LAT A' 10.60 cm/s E/LAT E' Ratio 10.55 (>14) Aortic Valve LVOT Max 92.00 (70-110 cm/s) LVOT VTI 21.07 cm AoV Peak Bob. 134.00 (50-130 cm/s) AO Peak GR. 7.20 mmHg AO Mean GR. 3.60 (<5 mmHg) AO VTI 25.88 (18-25 cm) MARLA (VTI) 2.21 (2.5-4.5 cm2) Mitral Valve MV A Velocity 71.00 (40-130 cm/s) E/A Ratio 0.98 MV Decel. Time 253.00 (160-240 ms) MV PHT 77.00 ms Pulmonary Valve PV Peak Velocity 88.00 (50-150 cm/s) Left Ventricle Left atrium is mildly enlarged, left ventricle is normal size, mild concentric left ventricular hypertrophy, estimated ejection fraction 55% with no regional wall motion abnormality, grade 1 diastolic dysfunction seen without tissue Doppler evidence of raise left atrial pressure. Right Ventricle Right atrium and right ventricle are mildly enlarged with normal contractility. Aortic Valve Aortic valve is minimally thickened and fibrosed there is no aortic stenosis or aortic insufficiency. Mitral Valve Mitral valve is grossly normal, there is trace mitral regurgitation. Tricuspid Valve Tricuspid grossly normal, there is trace tricuspid regurgitation, tricuspid regurgitation jet velocity is inadequate for calculation of the right ventricular systolic pressure. Pulmonic Valve Pulmonic valve is poorly visualized. Great Vessels Aortic root is normal size. Inferior vena cava is normal size with normal inspiratory collapse. Pericardium No significant pericardial effusion noted. Conclusion 1. Mild biatrial enlargement, normal left ventricular size, mild concentric left ventricular hypertrophy, estimated ejection fraction 55% with no regional wall motion abnormality, grade 1 diastolic dysfunction seen without tissue Doppler evidence of raise left atrial pressure. 2. Mildly enlarged right ventricle with normal contractility. 3. Trace mitral and tricuspid regurgitation. 4. No significant pericardial effusion. 5. Inferior vena cava normal size with normal inspiratory collapse. Electronically signed by : Peter Hall MD 11/25/2021 18:41:23
== END ==
PROVIDERS: PCP Family Medicine; Visit Provider Internal Medicine
DX: E11.9 Type 2 diabetes mellitus without complications; E78.5 Hyperlipidemia, unspecified; I11.9 Hypertensive heart disease without heart failure; I25.10 Atherosclerotic heart disease of native coronary artery without angina pectoris; I48.91 Unspecified atrial fibrillation; I70.213 Atherosclerosis of native arteries of extremities with intermittent claudication, bilateral legs; Z79.4 Long term (current) use of insulin
CPT/HCPCS: 93306; 93923

== ENCOUNTER 2022-03-20 15:14 | Day surgery (SDC) | payer MEDICARE, SELFPAY ==
[2022-03-20 15:15] VITALS: BP 143/80; PULSE 76; RESP 18; TEMP 36.6; O2SAT 95; BMI 24.6
--- NOTE | 2022-03-20 15:17 | HMH.EDGENADL ---
Discharge Plan Disposition Patient Disposition: Still a Patient Condition: Fair Clinical Impressions Clinical Impression: Food impaction of esophagus Discharge ED Provider: Noé Downs General Adult HPI General Chief complaint: Recheck/Abnormal Lab/Rx Stated complaint: food bolus Time Seen by Provider: 03/20/22 15:14 History of Present Illness HPI narrative: The patient complains of an esophageal food impaction. States that he was eating steak today at the [employer] [facility] when the steak lodged in his lower esophagus. Since then unable to swallow anything including saliva without it coming back up. He says he was taken from the [facility] restaurant to [facility] in [place] and waited there for 2 hours, but apparently their equipment to do endoscopy was down and he was told he would have to be transferred to [facility] and it would be another hour. He decided to leave the hospital and come here. He does not wear dentures. He was not drinking alcohol at the time that the food bolus became lodged. He states that he has had this happen 1 time previously about 7 or 8 years ago, he had an endoscopy with food bolus removal by Dr. Camilo. He called Dr. Camilo on the way here. Related Data Home Medications Medication Instructions Recorded Confirmed aspirin 81 mg tablet,delayed 81 mg PO DAILY HEART HEALTH 03/17/18 11/27/21 release (Adult Low Dose Aspirin) hydrochlorothiazide 25 mg tablet 25 mg PO DAILY diuretic 03/17/18 11/27/21 insulin glargine U-300 conc 300 40 unit SQ HS Diabetes 03/17/18 11/27/21 unit/mL (1.5 mL) subcutaneous pen (Toujeo SoloStar U-300 Insulin) carvedilol 25 mg tablet (Coreg) 12.5 mg PO BID BLOOD PRESSURE 10/25/18 11/27/21 hydralazine 25 mg tablet 25 mg PO BID BLOOD PRESSURE 10/25/18 11/27/21 insulin aspart U-100 100 unit/mL 30 unit SQ TID Diabetes 10/25/18 11/27/21 (3 mL) subcutaneous pen (Novolog Flexpen U-100 Insulin aspart) lisinopril 10 mg tablet 10 mg PO BID BLOOD PRESSURE 11/10/18 11/27/21 clopidogrel 75 mg tablet 75 mg PO DAILY Blood thinner 03/12/20 11/27/21 tramadol 50 mg tablet 50 mg PO Q8H PRN pain 10/10/20 11/27/21 pravastatin 40 mg tablet 40 mg PO DAILY 10/29/21 11/27/21 Previous Rx's Medication Instructions Recorded amlodipine 10 mg tablet See Rx Instructions .Route 04/08/21 .COMPLEX #90 tabs ropinirole 1 mg tablet 1 mg PO QHS #45 tabs 10/29/21 peg 3350-electrolytes 236 240 ml PO Q10M #4,000 mL 12/23/21 gram-22.74 gram-6.74 gram-5.86 gram solution (Golytely) Allergies Allergy/AdvReac Type Severity Reaction Status Date / Time propoxyphene [From DARVON] Allergy Unknown I-HIVES Verified 11/27/21 11:47 [facility] Disclaimer: The information contained in this section may have been updated after the patient was seen, as this information can be updated by other users. Medical History (Updated 03/20/22 @ 15:31 by Sumanth Camilo MD) Atrial fibrillation Bradycardia CAD (coronary artery disease) Diabetes Dyspnea HHD (hypertensive heart disease) HLD (hyperlipidemia) Palpitations Unstable angina Social History Smoking Status: Never smoker second hand exposure: No alcohol intake: never substance use type: denies use current occupational status: retired Travel in the last 8 weeks: Inside the [place] household members: spouse housing: house current occupational exposures/hazards: No caffeine: Yes ROS Obtained: Yes Systems reviewed as appropriate & no additional complaints except as documented Gastrointestinal Gastrointestingal: Reports as per HPI, vomiting and other (Food bolus impaction) Physical Exam General General appearance: alert and in no apparent distress Comment: Holding an emesis bag containing liquid which he has regurgitated Head Head exam: atraumatic and normocephalic Eye Eye exam: Present normal appearance ENT ENT exam: Present mucous membranes moist Neck Neck exam: Presen
--- NOTE | 2022-03-20 15:20 | PC.NURSE ---
Dr. Camilo at BS for patient eval
--- NOTE | 2022-03-20 15:20 | PC.NURSE ---
GRISELDA CHAWLA at for patient eval
--- NOTE | 2022-03-20 15:22 | PC.NURSE ---
1516- spoke to BJ in surgical suite. page surgery team 1517- Surgery Team Paged 1520- BRODERICK Lynn returned page 1521- GABRIELE Price returned page 1521- Kamari Schulte returned page
--- NOTE | 2022-03-20 15:23 | PC.NURSE ---
Jasmin RN at for surgery consent
--- NOTE | 2022-03-20 15:29 | EXP.GEN.HP ---
HPI HPI HPI: Patient is a 71-year-old male who is known to me. He had a previous history of esophageal food impaction/obstruction in 2016 requiring endoscopy. He has not had any issues subsequently but today at approximately noon time was eating at [employer] in [place] and had steak become lodged. He has been unable to swallow secretions. He had initially presented to outside facility but reportedly was unable to undergo endoscopy. Patient therefore presented to [facility] for evaluation and treatment. [facility] Disclaimer: The information contained in this section may have been updated after the patient was seen, as this information can be updated by other users. Medical History (Updated 03/20/22 @ 15:31 by Sumanth Camilo MD) Atrial fibrillation Bradycardia CAD (coronary artery disease) Diabetes Dyspnea HHD (hypertensive heart disease) HLD (hyperlipidemia) Palpitations Unstable angina Social History Smoking Status: Never smoker second hand exposure: No alcohol intake: never substance use type: denies use current occupational status: retired Travel in the last 8 weeks: [place] the [place] household members: spouse housing: house current occupational exposures/hazards: No caffeine: Yes Meds Home Medications and Allergies Home Medications Medication Instructions Recorded Confirmed Type aspirin 81 mg tablet,delayed 81 mg PO DAILY HEART HEALTH 03/17/18 11/27/21 History release (Adult Low Dose Aspirin) hydrochlorothiazide 25 mg tablet 25 mg PO DAILY diuretic 03/17/18 11/27/21 History insulin glargine U-300 conc 300 40 unit SQ HS Diabetes 03/17/18 11/27/21 History unit/mL (1.5 mL) subcutaneous pen (Toujeo SoloStar U-300 Insulin) carvedilol 25 mg tablet (Coreg) 12.5 mg PO BID BLOOD PRESSURE 10/25/18 11/27/21 History hydralazine 25 mg tablet 25 mg PO BID BLOOD PRESSURE 10/25/18 11/27/21 History insulin aspart U-100 100 unit/mL 30 unit SQ TID Diabetes 10/25/18 11/27/21 History (3 mL) subcutaneous pen (Novolog Flexpen U-100 Insulin aspart) lisinopril 10 mg tablet 10 mg PO BID BLOOD PRESSURE 11/10/18 11/27/21 History clopidogrel 75 mg tablet 75 mg PO DAILY Blood thinner 03/12/20 11/27/21 History tramadol 50 mg tablet 50 mg PO Q8H PRN pain 10/10/20 11/27/21 History amlodipine 10 mg tablet See Rx Instructions .Route 04/08/21 11/27/21 Rx .COMPLEX #90 tabs pravastatin 40 mg tablet 40 mg PO DAILY 10/29/21 11/27/21 History ropinirole 1 mg tablet 1 mg PO QHS #45 tabs 10/29/21 11/27/21 Rx peg 3350-electrolytes 236 240 ml PO Q10M #4,000 mL 12/23/21 Rx gram-22.74 gram-6.74 gram-5.86 gram solution (Golytely) New Prescriptions to Start Prescriptions: Allergies Allergy/AdvReac Type Severity Reaction Status Date / Time propoxyphene [From DARVON] Allergy Unknown I-HIVES Verified 11/27/21 11:47 Exam Data for Last 24 hours Vital signs and Labs for Last 24 Hours: Temp Pulse Resp BP Pulse Ox 97.9 F 76 18 143/80 H 95 03/20/22 15:15 03/20/22 15:15 03/20/22 15:15 03/20/22 15:15 03/20/22 15:15 I & O for Last 24 hours: Intake & Output 03/18/22 03/19/22 03/20/22 03/21/22 11:59 11:59 11:59 11:59 Weight 162 lb *Routine HEENT Exam Head: Present normocephalic Eye: Present EOMI ENT: Present mucous membranes moist *Routine Neck Exam Neck: Present supple *Routine Respiratory Exam Respiratory: Absent accessory muscle use *Routine Cardiovascular Exam Cardiovascular: Present Normal S1 *Routine Abdominal Exam Abdominal: Absent tenderness *Routine Rectal Exam Rectal:: deferred *Routine Genitalia Exam Genitalia:: deferred Assessment and Plan *Assessment and plan (1) Esophageal obstruction due to food impaction: Status: Acute Category: Medical Code(s): K22.2 - Esophageal obstruction; T18.128A - Food in esophagus causing other injury, initial encounter Plan Plan to proceed with urgent EGD.
--- NOTE | 2022-03-20 15:38 | PC.NURSE ---
[facility]eah in surgery called and said they would be down shortly to get the pt. Dr. Downs notified.
[2022-03-20 16:06] LABS: Chloride 97 mmol/L (98-107); Potassium 3.8 mmoL/L (3.5-5.1); Sodium 134 mmol/L (136-145)
[2022-03-20 16:08] VITALS: BP 140/72; PULSE 74; RESP 20; TEMP 36.6; O2SAT 97
[2022-03-20 16:08] LABS: Blood Urea Nitrogen 14 mg/dl (9-20); Creatinine Clearance Estimated 71 mL/min (50-200); Estimated Glomerular Filt Rate 111 ml/min (>60); GFR (African American) 135 ML/MIN (>60)
[2022-03-20 16:09] LABS: Alanine Aminotransferase 21 U/L (12-78); Albumin Level 4.3 g/dl (3.5-5.0); Albumin/Globulin Ratio 1.7 (1.1-1.8); Alkaline Phosphatase 108 U/L (38-126); Anion Gap 13.8 mEq/L (5-15); Aspartate Amino Transferase 28 U/L (17-59); Basophils # 0.1 K/mm3 (0-0.2); Basophils % 0.8 % (0.1-2.0); Bilirubin,Total 0.5 mg/dl (0.2-1.3); Carbon Dioxide 27 mmol/L (22.0-30.0); Eosinophils # 0.2 K/mm3 (0.0-0.4); Eosinophils % 1.6 % (0.1-12.0); Globulin 2.5 g/dL (1.3-3.2); Glucose 287 mg/dl (74-100); Hematocrit 42.9 % (42.0-52.0); Hemoglobin 13.7 g/dL (14.1-18.0); Lymphocytes # 1.7 K/mm3 (0.7-4.5); Lymphocytes % 13.7 % (10-50); Mean Corpuscular Hemoglobin 29.6 pg (27.0-31.2); Mean Corpuscular Volume 92.3 fl (80-94); Mean Platelet Volume 7.9 fl (7.4-10.4); Monocytes # 0.6 K/mm3 (0.1-1.0); Monocytes % 4.6 % (1.7-9.3); Neutrophils % 79.3 % (37.0-80.0); Platelet Count 238 K/mm3 (142-424); Red Blood Count 4.65 M/mm3 (4.60-6.20); Red Cell Distribution Width 13.7 % (11.5-17.5); Total Protein,Serum 6.8 g/dl (6.3-8.2); White Blood Count 12.6 K/mm3 (4.8-10.8)
--- NOTE | 2022-03-20 16:15 | EXP.ANES.CKL ---
[facility] Disclaimer: The information contained in this section may have been updated after the patient was seen, as this information can be updated by other users. Medical History (Updated 03/20/22 @ 15:31 by Sumanth Camilo MD) Atrial fibrillation Bradycardia CAD (coronary artery disease) Diabetes Dyspnea HHD (hypertensive heart disease) HLD (hyperlipidemia) Palpitations Unstable angina Social History Smoking Status: Never smoker second hand exposure: No alcohol intake: never substance use type: denies use current occupational status: retired Travel in the last 8 weeks: [place] the [place] household members: spouse housing: house current occupational exposures/hazards: No caffeine: Yes [facility] Anesthesia Checklist Patient Identification Patient Identification: Arm Band Structural Data Admitted From: Home Planned Operative Procedure/s: EGD Consent for Planned Operative Procedure(s) Verified: Yes Verified Documents: Surgical Consent and History and Physical NPO Status Verified Time NPO: 12:00 Additional verifications Anesthesia Reactions: No Hx Blood Transfusions: No Airway Assessment C-Spine Mobility Assessed: Yes TMJ Mobility Assessed: Yes Dentition: Good Dentition Neurological Assessment Level of Consciousness: Awake and Alert Anesthesia Plan Anesthesia Risk discussed: Yes Anesthesia Plan: Verified ASA Class: III Anesthesia Type: MAC
[2022-03-20 16:16] LABS: POC Glucose,Bedside 340 (70-110)
[2022-03-20 16:18] VITALS: BP 90/44; PULSE 73; RESP 12; TEMP 36.2; O2SAT 95
--- NOTE | 2022-03-20 16:18 | P.PCN_ITS ---
Procedure: Date: 03/20/22 Patient Date of :: 1950 Procedure Performed:: Esophagogastroduodenoscopy Indications:: Patient is a 71-year-old male who had a previous history of esophageal obstruction secondary to food impaction about 6 years ago requiring emergent EGD. He had been in his usual state of health until he was eating lunch at a steak house in [place] at approximately noontime today he states that he had symptoms consistent with esophageal obstruction from food impaction. He has been unable to swallow secretions. He is having some lower substernal discomfort. He presented to outside facility emergency department and after some time there was no apparent ability to undergo endoscopy and consideration was being given for possible transfer to another facility. Patient presented to [facility] and arrangements were made for endoscopy emergently. Performing Provider:: Sumanth Camilo MD Referring Provider:: aDvid Mora Sedation:: MAC sedation Procedure:: Patient was taken to endoscopy procedure room. He was positioned in lateral decubitus position. Adequate intravenous sedation was achieved with anesthesia titration of propofol. Olympus endoscope was inserted via the oropharynx. There was some minimal salivary secretions which were suctioned free. Gastroesophageal junction was encountered at approximately 40 cm from the incisors. There is some minimal irritation but no evidence of any food bolus obstruction. There were minimal Schatzki's ring. Biopsies and dilatation was not performed due to the patient being on Plavix. Endoscope was then advanced into the stomach. There was some food present within the stomach. Pylorus was patent and endoscope was easily advanced into the duodenum which appeared unremarkable. Stomach was then desufflated as the endoscope was withdrawn. Findings:: Gastroesophageal junction at 40 cm Minimal Schatzki's ring No evidence of esophageal obstruction at the time of procedure Food within the gastric lumen Recommendations:: Maintain limited diet with full liquids today. Follow-up in the office as an outpatient. Likely would plan for interval elective EGD with biopsies and possible dilatation. Complications:: None immediately apparent Estimated blood obtained (mL): 0
[2022-03-20 16:33] VITALS: BP 124/58; PULSE 72; RESP 16; O2SAT 96
[2022-03-20 16:48] VITALS: BP 127/63; PULSE 70; RESP 16; TEMP 36.4; O2SAT 97
== END 2022-03-20 16:48 | disposition home or self-care (01) ==
LOC: ER 15:49 → SDC 16:07
PROVIDERS: Emergency Provider Emergency Medicine; PCP Family Medicine; Visit Provider Surgery
PROC: 0DJ08ZZ Inspection of Upper Intestinal Tract, Via Natural or Artificial Opening Endoscopic (ICD-10-PCS; CPT 43235; principal; 2022-03-20 16:00)
DX: K22.2 Esophageal obstruction (principal); E11.9 Type 2 diabetes mellitus without complications
CPT/HCPCS: 43235; 80053; 82962; 85025

== ENCOUNTER 2022-08-15 07:24 | Day surgery (SDC) | payer MEDICARE, SELFPAY ==
[2022-08-13 10:14] VITALS: BMI 24.6
[2022-08-15 07:45] VITALS: BP 142/82; PULSE 69; RESP 17; TEMP 36.4; O2SAT 98
[2022-08-15 08:00] LABS: POC Glucose,Bedside 154 (70-110)
--- NOTE | 2022-08-15 08:02 | EXP.ANES.CKL ---
[facility] Disclaimer: The information contained in this section may have been updated after the patient was seen, as this information can be updated by other users. Medical History Atrial fibrillation Bradycardia CAD (coronary artery disease) Colonoscopy planned Diabetes Diabetes mellitus, type 2 Dyspnea HHD (hypertensive heart disease) HLD (hyperlipidemia) Kidney stone Palpitations Unstable angina Surgical History (Updated 08/15/22 @ 07:42 by Razia Cornejo RN) H/O hernia repair History of back surgery Family History (Updated 08/15/22 @ 07:41 by Razia Cornejo RN) Other Family history of diabetes mellitus type I No significant family history Social History Smoking Status: Former smoker second hand exposure: No alcohol intake: never substance use type: denies use current occupational status: retired Travel in the last 8 weeks: Inside the [place] household members: spouse housing: house current occupational exposures/hazards: No caffeine: Yes [facility] Anesthesia Checklist Patient Identification Patient Identification: Verbal (Name & ) Structural Data Admitted From: Home Planned Operative Procedure/s: colonoscopy Consent for Planned Operative Procedure(s) Verified: Yes Additional verifications Anesthesia Reactions: No Hx Blood Transfusions: No Airway Assessment C-Spine Mobility Assessed: Yes TMJ Mobility Assessed: Yes Dentition: Good Dentition Neurological Assessment Level of Consciousness: Awake, Alert and Appropriate Anesthesia Plan Anesthesia Risk discussed: Yes Anesthesia Plan: Verified ASA Class: III Anesthesia Type: MAC
[2022-08-15 08:04] VITALS: O2SAT 98
--- NOTE | 2022-08-15 08:18 | P.PCN_ITS ---
Procedure: Date: 08/15/22 Patient Date of :: 1950 Procedure Performed:: Flexible sigmoidoscopy Indications:: Patient is a 72-year-old male whom I had previously performed colonoscopy on him in 2019 which time he had some adenomatous polyps. He underwent colonoscopy by Dr. Temple on 03/16/2020 due to constipation and left upper quadrant pain and was found to have extensive left-sided diverticulosis, grade 2 internal hemorrhoids, diminutive colon polyp x2. He recommended repeat colonoscopy 5 to 7 years. Patient states that he was in [place] recently and had some hemorrhoid issues and underwent hemorrhoid banding in an office. He still does have some symptoms of hemorrhoid prolapse. Performing Provider:: Sumanth Camilo MD Referring Provider:: David Mora Sedation:: MAC sedation Procedure:: Patient history was obtained and appropriate physical examination was performed. Patient's medications and allergies were reviewed. Informed consent was obtained after explaining the benefits, alternatives, and risks of the procedure including, but not limited to, bleeding, perforation, missed lesions, and adverse reaction to anesthesia medications. Patient was transported to endoscopy procedure room. Patient was connected to monitoring devices. Throughout the procedure the patient's blood pressure, pulse, and oxygen saturations were monitored continuously. Patient identification and planned procedure were verified by the staff. Patient was positioned in lateral decubitus position. Digital anorectal exam was performed. Variable stiffness Olympus colonoscope was inserted. Within the rectum there were several large stool balls and diffuse particulate liquid stool. Colonoscope was able to be advanced beyond this into the distal sigmoid colon there was some particulate liquid stool. Is advanced to the mid sigmoid colon and additional formed stool balls were encountered. Due to the lack of visualization colonoscope was withdrawn. There were some sigmoid diverticuli. Retroflexion revealed no evidence of any definitive pathologic internal hemorrhoids but visualization was poor. Findings:: Sigmoid diverticulosis Extremely poor colonic preparation Recommendations:: Schedule repeat full colonoscopy electively with multi day aggressive bowel prep. Reassess hemorrhoids when visualization is able to be performed. Complications:: None immediate Estimated blood obtained (mL): 0
[2022-08-15 08:19] VITALS: BP 111/57; PULSE 64; RESP 14; TEMP 36.1; O2SAT 91
[2022-08-15 08:29] VITALS: BP 115/61; PULSE 63; RESP 15; O2SAT 93
[2022-08-15 08:39] VITALS: BP 118/63; PULSE 69; RESP 16; O2SAT 94
[2022-08-15 08:50] VITALS: BP 118/63; PULSE 69; RESP 16; O2SAT 97
== END 2022-08-15 08:50 | disposition home or self-care (01) ==
PROVIDERS: PCP Family Medicine; Visit Provider Surgery
PROC: 0DJD8ZZ Inspection of Lower Intestinal Tract, Via Natural or Artificial Opening Endoscopic (ICD-10-PCS; CPT 45330; principal; 2022-08-15 08:30)
DX: K57.30 Diverticulosis of large intestine without perforation or abscess without bleeding (principal); Z86.010 Personal history of colon polyps; Z91.199 Patient's noncompliance with other medical treatment and regimen due to unspecified reason; Z79.899 Other long term (current) drug therapy; E11.9 Type 2 diabetes mellitus without complications
CPT/HCPCS: 45330; 82962

== ENCOUNTER → 2022-10-02 06:44 | Outpatient (CLI) | payer MEDICARE, SELFPAY ==
--- NOTE | 2022-10-02 06:49 | CT_ITS ---
FINAL REPORT TECHNIQUE: Axial images through the abdomen and pelvis were performed without contrast. This study was performed with techniques to keep radiation doses as low as reasonably achievable, (ALARA). Individualized dose reduction techniques using automated exposure control or adjustment of mA and/or kV according to the patient's size were employed. CLINICAL HISTORY: RIGHT UPPER QUAD PAIN x2 MONTHS FINDINGS: Abdomen: The lung bases are clear. The liver parenchyma is homogeneous. The gallbladder is absent. There are calcified granulomas in the spleen. The pancreas and adrenals are unremarkable. There is mild hazy stranding at the root of the mesentery of uncertain significance. There are small nonobstructing right renal stones measuring up to 4 mm. There is an exophytic cyst arising from the posterior left kidney measuring up to 6 mm. There are postoperative changes from right inguinal hernia repair. Pelvis: The urinary bladder is unremarkable. The appendix is not visualized. There is extensive descending and sigmoid diverticulosis without evidence of diverticulitis. There is no pelvic mass or inflammation. IMPRESSION: Nonobstructing right renal stones. Exophytic cyst in the posterior left kidney. Mild hazy stranding in the root of the mesentery of uncertain significance, probably postinflammatory. Reviewed, Interpreted and Dictated by Baljit Donovan MD Transcribed by Piper Spangler Authenticated and [facility]
== END ==
PROVIDERS: PCP Family Medicine; Visit Provider Family Medicine
DX: R10.11 Right upper quadrant pain (principal)
CPT/HCPCS: 74176

== ENCOUNTER → 2022-10-27 09:08 | Outpatient (CLI) | payer MEDICARE, SELFPAY ==
--- NOTE | 2022-10-27 09:15 | US_ITS ---
FINAL REPORT TECHNIQUE: Sonographic images of the right upper quadrant were obtained. CLINICAL HISTORY: RUQ PAIN CONSTIPATION ABDOMINAL WALL PAIN FINDINGS: PANCREAS: Unremarkable. LIVER: Fatty infiltration. No focal hepatic lesion. No intrahepatic biliary ductal dilatation. GALLBLADDER: Surgically absent. COMMON DUCT: 3 mm. Normal for age. RIGHT KIDNEY: The right kidney measures 11.7 cm. There is no hydronephrosis, mass, or stone. FREE FLUID: None. IMPRESSION: Fatty infiltration of the liver, otherwise unremarkable ultrasound of the right upper quadrant. Reviewed, Interpreted and Dictated by Susan Story MD Transcribed by Sandhya Bryant Authenticated and [facility]
[2022-10-27 09:30] LABS: Basophils % 0.2 % (0.1-2.0); Eosinophils # 0.3 K/mm3 (0.0-0.4); Eosinophils % 2.1 % (0.1-12.0); Hematocrit 41.2 % (42.0-52.0); Hemoglobin 13.6 g/dL (14.1-18.0); Lymphocytes # 1.7 K/mm3 (0.7-4.5); Lymphocytes % 12.3 % (10-50); Mean Corpuscular HGB Conc 32.9 g/dL (31.8-35.4); Mean Corpuscular Hemoglobin 28.7 pg (27.0-31.2); Mean Corpuscular Volume 87.1 fl (80-94); Mean Platelet Volume 8.2 fl (7.4-10.4); Monocytes % 6.9 % (1.7-9.3); Neutrophils # 10.9 K/mm3 (1.8-7.8); Neutrophils % 78.5 % (37.0-80.0); Platelet Count 194 K/mm3 (142-424); Red Blood Count 4.73 M/mm3 (4.60-6.20); Red Cell Distribution Width 13.1 % (11.5-17.5); White Blood Count 13.8 K/mm3 (4.8-10.8)
[2022-10-27 10:52] LABS: Alanine Aminotransferase 13 U/L (12-78); Albumin Level 4.3 g/dl (3.5-5.0); Alkaline Phosphatase 108 U/L (38-126); Amylase 65 U/L (30-110); Anion Gap 9.2 mEq/L (5-15); Aspartate Amino Transferase 16 U/L (17-59); Bilirubin,Total 0.5 mg/dl (0.2-1.3); Blood Urea Nitrogen 14 mg/dl (9-20); Calcium 9.1 mg/dl (8.4-10.2); Carbon Dioxide 32 mmol/L (22.0-30.0); Chloride 99 mmol/L (98-107); Estimated Glomerular Filt Rate 111 ml/min (>60); GFR (African American) 135 ML/MIN (>60); Globulin 2.2 g/dL (1.3-3.2); Glucose 188 mg/dl (74-100); Lipase 174 U/L (23-300); Potassium 4.2 mmoL/L (3.5-5.1); Sodium 136 mmol/L (136-145); Total Protein,Serum 6.5 g/dl (6.3-8.2)
[2022-10-28 11:31] LABS: Varicella Zoster IgG >4000 index (Immune >165)
== END ==
PROVIDERS: PCP Family Medicine; Visit Provider Nurse Practitioner Family
DX: R10.9 Unspecified abdominal pain (principal); R10.11 Right upper quadrant pain; K59.00 Constipation, unspecified
CPT/HCPCS: 36415; 76705; 80053; 82150; 83690; 85025; 86787

== ENCOUNTER → 2022-12-24 12:00 | Outpatient (CLI) | payer MEDICARE, SELFPAY ==
[2022-12-24 13:45] LABS: Blood Urea Nitrogen 15 mg/dl (9-20); Estimated Glomerular Filt Rate 111 ml/min (>60); GFR (African American) 135 ML/MIN (>60)
== END ==
PROVIDERS: PCP Family Medicine; Visit Provider Family Medicine
DX: Z01.812 Encounter for preprocedural laboratory examination (principal)
CPT/HCPCS: 36415; 82565; 84520

== ENCOUNTER → 2023-01-08 08:23 | Outpatient (CLI) | payer MEDICARE, SELFPAY ==
--- NOTE | 2023-01-08 08:29 | CT_ITS ---
FINAL REPORT TECHNIQUE: Pre-and postcontrast images of the abdomen and pelvis were performed by computed tomography or CT angiogram protocol. Coronal and sagittal reconstruction images were performed. This study was performed with techniques to keep radiation doses as low as reasonably achievable (ALARA). Individualized dose reduction techniques using automated exposure control or adjustment of mA and/or kV according to the patient''s size were employed. CLINICAL HISTORY: ABNORMAL PREVIOUS CT COMPARISON: Noncontrast exam dated 10/02/2022 FINDINGS: ABDOMEN/PELVIS: The lung bases are clear. The liver is fatty infiltrated. A tiny hypodense lesion in the inferior right lobe of the liver is favored to be a cyst. The gallbladder is absent. The spleen, adrenal glands, and pancreas are without acute abnormality. There are bilateral renal cysts. No hydronephrosis or perinephric stranding. There is no acute abnormality of the GI tract. The appendix is normal. There is diverticulosis without diverticulitis. The prostate is enlarged. There is no abdominal or pelvic lymphadenopathy and there is no free intraperitoneal fluid. CTA: The abdominal aorta is without aneurysm or dissection. Mild atherosclerotic disease is noted. The SMA, celiac axis, and CRISTY are patent. There is no significant stenosis or calcification. The renal arteries are patent bilaterally. The bilateral common iliac arteries, external iliac arteries, and internal iliac arteries are patent. IMPRESSION: 1. No abdominal aortic aneurysm or dissection. Patent major branch vessels without significant stenosis. 2. Fatty liver. 3. No acute intra-abdominal or intrapelvic abnormality. Authenticated and [facility]
== END ==
PROVIDERS: PCP Family Medicine; Visit Provider Family Medicine
DX: R10.11 Right upper quadrant pain (principal); R93.89 Abnormal findings on diagnostic imaging of other specified body structures
CPT/HCPCS: 74174; Q9967

== ENCOUNTER 2024-01-01 06:29 | Day surgery (SDC) | payer MEDICARE, SELFPAY ==
[2023-12-29 11:23] VITALS: BMI 25.7
--- NOTE | 2024-01-01 06:48 | HMH.SCOPE ---
Procedure: Date: 01/01/24 Patient Date of :: 1950 Procedure Performed:: Total colonoscopy with multiple polypectomy Indications:: Patient is a 73-year-old male who presents for colonoscopy due to history of polyps. I had previously performed colonoscopy in 2019 at which time he had 3 adenomatous polyps including one sessile serrated adenoma. He is seeing Dr. Temple and had a follow-up colonoscopy on 03/16/2020 due to constipation and left upper quadrant pain. He was found to have left-sided diverticulosis, internal hemorrhoids, and diminutive polyp x 2 (tubular adenomas). Patient had subsequently undergone hemorrhoid banding in an outpatient setting in [place]. He had been having some symptoms of hemorrhoidal prolapse. He presented for follow-up colonoscopy with hi on 08/15/2022. At that time several large stool balls were encountered in the rectum and sigmoid colon. Due to his extremely poor colonic preparation plan was made for rescheduling with repeat full colonoscopy with multiday aggressive bowel preparation. Patient denies any hemorrhoid symptoms at this time. . Performing Provider:: Sumanth Camilo MD Referring Provider:: David Mora MD Sedation:: MAC sedation Procedure:: Patient history was obtained and appropriate physical examination was performed. Patient's medications and allergies were reviewed. Informed consent was obtained after explaining the benefits, alternatives, and risks of the procedure including, but not limited to, bleeding, perforation, missed lesions, and adverse reaction to anesthesia medications. Patient was transported to endoscopy procedure room. Patient was connected to monitoring devices. Throughout the procedure the patient's blood pressure, pulse, and oxygen saturations were monitored continuously. Patient identification and planned procedure were verified by the staff. Patient was positioned in lateral decubitus position. Digital anorectal exam was performed. Variable stiffness Olympus colonoscope was inserted and advanced under direct visualization to the cecum. Adequacy of the colonic preparation was noted. The colonoscope was then slowly withdrawn while carefully examining the color, texture, anatomy, and integrity of the mucosoa circumferentially. Within the rectum retroflexion was performed. Colonoscope was then withdrawn. Impression: In the cecum there was a tiny diminutive adenomatous appearing polyp removed with biopsy forceps. Also within the cecum proximal to ileocecal fold there was a 6 to 8 mm adenomatous appearing polyp which was removed with cold cutting snare. Residual tissue at the base was removed with biopsy forceps. Hemoclip was deployed for assurance of hemostasis. Just distal to the ileocecal fold there were a couple of diminutive polyps removed with biopsy forceps. There was significant left-sided diverticulosis with multiple [place] diverticuli 1 of which have had impacted stool. The rectosigmoid region there was a tiny diminutive hyperplastic appearing polyp removed with biopsy forceps. Retroflexion within the rectum revealed some degree of prolapsing hemorrhoids. Findings:: Polyps as noted above Left-sided diverticulosis Internal hemorrhoids Recommendations:: Repeat colonoscopy pending pathology. Given his propensity to develop polyps likely 2 or 3 years with multi day prep. Complications:: None immediately apparent Estimated blood obtained (mL): 2 Colonoscopy Component Colonoscopy Component Was a colonoscopy performed during today's procedure?: Yes Recommended follow up colonoscopy of at least 10 years?: No If no, follow up colonoscopy recommended in ___ years?: 2-3 Reason for not recommending >/= 10 yr follow-up interval?: See above
[2024-01-01] MEDS: LACTATED RINGERS 1000ML 1,000 ML 100 ML IV (06:49)
[2024-01-01 06:53] VITALS: BP 146/72; PULSE 68; RESP 18; TEMP 36.4; O2SAT 98
[2024-01-01 07:02] LABS: POC Glucose,Bedside 155 (70-110)
--- NOTE | 2024-01-01 07:12 | P.PNANES_ITS ---
[facility] Disclaimer: The information contained in this section may have been updated after the patient was seen, as this information can be updated by other users. Medical History Colonoscopy planned Kidney stone Diabetes mellitus, type 2 Unstable angina Dyspnea Diabetes HLD (hyperlipidemia) HHD (hypertensive heart disease) Palpitations CAD (coronary artery disease) Atrial fibrillation Bradycardia Surgical History History of knee replacement History of back surgery H/O hernia repair Family History Other Family history of diabetes mellitus type I No significant family history Social History Smoking Status: Former smoker tobacco type: cigarettes second hand exposure: No alcohol intake: never substance use type: denies use current occupational status: retired Travel in the last 8 weeks: Inside the [facility] household members: spouse housing: house current occupational exposures/hazards: No caffeine: Yes [facility] Anesthesia Checklist Patient Identification Patient Identification: Arm Band and Verbal (Name & ) Structural Data Admitted From: Home Planned Operative Procedure/s: Colonoscopy Consent for Planned Operative Procedure(s) Verified: Yes Verified Documents: Surgical Consent and History and Physical NPO Status Verified Time NPO: 00:00 Additional verifications Anesthesia Reactions: No Hx Blood Transfusions: No Airway Assessment Mallampati Score:: Class II C-Spine Mobility Assessed: Yes TMJ Mobility Assessed: Yes Dentition: Good Dentition Neurological Assessment Level of Consciousness: Awake Hx Seizures: No Numbness or tingling in extremities: No Anesthesia Plan Anesthesia Risk discussed: Yes Anesthesia Plan: Verified ASA Class: III Anesthesia Type: MAC
[2024-01-01 07:18] VITALS: O2SAT 98
[2024-01-01 08:00] VITALS: BP 104/63; PULSE 66; RESP 18; TEMP 36.4; O2SAT 94
[2024-01-01 08:10] VITALS: BP 104/53; PULSE 62; RESP 16; O2SAT 93
[2024-01-01 08:20] VITALS: BP 122/75; PULSE 64; RESP 16; O2SAT 97
[2024-01-01 08:28] VITALS: BP 136/76; PULSE 66; RESP 16; O2SAT 98
== END 2024-01-01 08:30 | disposition home or self-care (01) ==
PROVIDERS: PCP Family Medicine; Visit Provider Surgery
PROC: 0DJD8ZZ Inspection of Lower Intestinal Tract, Via Natural or Artificial Opening Endoscopic (ICD-10-PCS; CPT 45380; principal; 2024-01-01 07:30)
DX: Z86.010 Personal history of colon polyps (principal); K57.30 Diverticulosis of large intestine without perforation or abscess without bleeding; K64.8 Other hemorrhoids; K63.5 Polyp of colon; E11.8 Type 2 diabetes mellitus with unspecified complications; Z79.4 Long term (current) use of insulin
CPT/HCPCS: 45380; 45385; 82962; 88305; J2704; J7120

== ENCOUNTER 2024-09-29 19:06 | Emergency (ER) | payer MEDICARE, SELFPAY ==
--- OUTSIDE RECORDS SUMMARY | 2024-03-11 07:45 | XMS_ITS ---
Author Organization [facility] Address [address] [facility] [address] [place] [id number] Care Team Providers Care House Officer Name Role Phone Johnnie Mora Primary Care Provider Allergies Allergen (clinical drug ingredient) Drug/Non Drug Allergy documented on EMR Reaction Allergy Type Onset Date Status propoxyphene Propoxyphene hives Drug Allergy A ctive REASON FOR VISIT 2 Month Follow Up, Needs labs, diabetic eye exam, & flu vaccine Encounters Encounter Location Date Provider Diagnosis [facility] [address] [facility] [address] [place] [id number] 03/11/2024 Johnnie Mora Plan Of Treatment Next Appt Details Provider Name:Johnnie Ritchie er, 10/21/2024 10:15:00 AM, [address] [facility], [address], [place], [id number], Progress Notes * Kory PERALTAOB:1950 (74 yo M)Acc No.[id number]:03/11/2024 Progress Notes Patient: Apollo BYNUM Provider: Johnnie Mora M.D. :1950 A ge:73 Y S ex:Male Date:03/11/2024 Address:[address] [id number] Subjective: * Chief Complaints: * 1 . 2 Month Follow Up. 2. Needs labs, diabetic eye exam, & flu vaccine. * ROS: D ERMATOLOGY: no R katrina. n o H nati. G ASTROENTEROLOGY: no N ausea. n o V omiting. n o D iarrhea.? U ROLOGY: no D ifficulty urinating. n o B lood in urine. * Medical History: R jocelin mounthyun spotted fever-autoimmnue disease, Diabetes Mellitus, Hypertension, Hyperlipidemia, Hypertriglyceridemia, Esophageal Reflux, BPH, Coronary Artery Disease with stents 02/2010, Anisocoria d/t trauma left eye, Cath 01/21/18 with temp pacer. Cath 02/01/18 with stent, Dr. Sellers, [facility], macular degeneration see 04/28/[address] Guardado. Referral to Dr. Orr, [facility] vaccine, J[employer]J, June 30, 2020, Colon polyps. * Surgical History: H syl 5 surgeries, 2 R, 2 L (inguinal) and 1 umbilical , RT knee , RT eye orbital surgery , 3 Kidney stone procedures , Heart Cath with stent placement X 3 02/2010, Heart Cath with stent placement x1 12/30/2010, Heart Cath, Dr. Ling 02/08/2015, Endoscopy right knee, Dr. Riley, [place] 01/2015, Colonoscopy , Colonoscopy, Dr. Camilo , Temporary Pacemaker placement - [facility] Dr Sellers 01/2018, Heart Cath and 3 stents[facility] Ling 10/2018, Back Surgery at [facility] 09/10/2021, LT Meniscus Tear Repair 09/18/2023, Colonoscopy, Dr. Camilo, 3 polyps 01/02/24. * Hospitalization/Major Diagno stic Procedure: Eliana Hernandez- Left Heart Catherization 12/10/10, [facility] ER- Eye Injury 02/08/12, ER- Eye Injury 02/08/12, [facility] 04-13-2014, [facility] - Hypotension, Hyperkalemia, a-fib with rapid response 01/21-01/23/2018, [facility] ER- chest pain 10/29, [facility] ER-abdominal pain 11/10/18. * Family History: F ather: . M other: alive, low blood pressure. S iblings: diabetes, high blood pressure, A brother has had a stroke at age 60. 1 brother(s) - healthy. 1 daughter(s) . . * Social History: C URRENT TOBACCO USE S moking Status: Patient does NOT smoke. C affeine: yes, frequency:1 cup a day. Past smoking status: yes, PPD: , years: ,determination:, quit years ago 20 years ago. Alcohol: Yes, Type: , Frequency: ,Years: , Determination:1 glass of wine 1 x a month. * Allergies: P ropoxyphene: hives. Objective: * Vitals: Assessment: Plan: * Treatment: * Procedure Codes: G 2211 Complex e/m visit add on * Billing Information: * Visit Code: * Procedure Codes: G2211 Complex e/m visit add on. * Electronic signature of Johnnie Mora MD on 09/29/2024 at 07:28 PM EDT Sign off status: Pending * Provider: Johnnie Mora M.D. Date: 05/11/2023 Generated for Kristen jesus/Ok/Vijayitting on: 0 09/29/2024 07:28 PM EDT
--- OUTSIDE RECORDS SUMMARY | 2024-08-12 06:15 | XMS_ITS ---
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 Name Role Phone Johnnie Moraory Primary Care Provider Allergies Allergen (clinical drug ingredient) Drug/Non Drug Allergy documented on EMR Reaction Allergy Type Onset Date Status propoxyphene Propoxyphene hives Drug Allergy A ctive Results Component Value Reference Range Notes Glycohemoglobin A1c (in hous e) Reviewed date:09/20/2024 04:36:03 PM Interpretation:10 Performing Lab: Notes/Report: 10 glycohemoglobin 10.0% 5 - 6.5 % P-Comprehensive Metabolic Pa gloria (CMP) Reviewed date:09/20/2024 04:36:02 PM Interpretation:gluc 334 Performing Lab: Notes/Report: Test performed by [facility], [employer] [facility] , [address], [place] [address] Sage Joshi MD, Digital Manager CLIA: [id number] Sodium 135 135-145 mmol/L Potassium 4.5 3.5-5.3 mmol/L Chloride 97 97-108 mmol/L CO2 25 22-32 mmol/L Glucose 334 65-99 mg/dL BUN 16 8-23 mg/dL Creatinine 0.92 0.70-1.30 mg/dL Calcium 8.9 8.6-10.4 mg/dL eGFR by Creatinine 88 >59 mL/min/1.73m2 Protein 6.3 6.0-8.3 g/dL Albumin 4.3 3.5-5.3 g/dL Alkaline Phosphatase 98 40-129 IU/L ALT (SGPT) 10 <5-55 IU/L AST (SGOT) 13 <5-46 IU/L Bilirubin, Total 0.5 <0.2-1.2 mg/dL A/G Ratio 2.1 1.1-2.5 P-Lipid Panel Reviewed date:08/23/2024 12:06:47 PM Interpretation:trigs 366, hdl 34 Performing Lab: Notes/Report: Test performed by [facility], [address] , [place] [address] Sage Joshi MD, Digital Manager CLIA: [id number] Cholesterol 120 <200 mg/dL Triglycerides 366 <150 mg/dL HDL Cholesterol 34 >39 mg/dL Cholesterol / HDL Ratio 3.53 0.00-4.99 Ratio Non-HDL Cholesterol 86 <130 mg/dL LDL Cholesterol (Calculation) 13 <130 mg/dL LDL Cholesterol Levels* Less than 100 mg/dL Optimal 100 to 129 mg/dL Near Optimal/ Above Optimal 130 to 159 mg/dL Borderline High 160 to 189 mg/dL High 190 mg/dL and above Very High * Categories as recommended by the 2004 ATPIII guidelines LDL/HDL Ratio 0.4 <3.3 Ratio LDL Cholesterol Patient History Test Date: 08/12/2024 LDL Results: 13 Units: mg/dL % Change: - P-PSA Reviewed date:09/20/2024 04:36:03 PM Interpretation:Normal Performing Lab: Notes/Report: Test performed by [facility], [employer] [address] [place] [address] , [address] , [place] [address] Sage Joshi MD, Digital Manager CLIA: [id number] PSA 0.91 <4.00 ng/mL Please note this is an ultrasensitive PSA assay with a lower limit of detection of 0.014 ng/mL. This test is performed by the Leanne ECLIA methodology. Values obtained with different assay methods or kits cannot be directly compared. REASON FOR VISIT check up, Needs labs with PSA & diabetic eye exam Medications Medication SIG (Take, Route, Frequency, Duration) Notes Start Date End Date Status metFORMIN HCl 500 MG 1 tablet Orally Onc e a day for 90 days 08/12/2024 Active Lisinopril 10 mg 1 tablet Orally Once a day for 90 days Active Rosuvastatin Calcium 20 MG 1 tab(s) oral ly once a day for 90 days Active Carvedilol 25 mg 1 tab(s) Orally Twic e a day for 90 days Active NovoLOG FlexPen 100 UNIT/ML 40 units sub cutaneously 3 times a day (before meals) for 90 days Active Finasteride 5 mg TAKE ONE TABLET BY M OUTH EVERY DAY for 90 days Active hydroCHLOROthiazide 25 mg 1 tab(s) Orall y Once a day for 90 days Active Toujeo SoloStar 300 UNIT/ML 60 units AM, 55 units PM Two times a day Active Linzess 290 MCG 1 cap(s) orally once a day for 90 days 2022 Active traMADol HCl 50 MG 1 tab(s) orally thre e times a day as needed for 30 days 08/12/2024 Active amLODIPine Besylate 10 MG 1 tab(s) Orall y once a day for 90 days Active Eye Vitamins - as directed Orally t wice a day AREDS Active Aspirin 81 MG 1 tab(s) orally once a day Active hydrALAZINE HCl 25 mg 1 tab(s) Orally Tw ice a day for 90 days Active Clopidogrel Bisulfate 75 mg 1 tablet Ora lly Once a day for 90 days Active Vital Signs Weight 177.8 lbs 08/12/2024 Blood pressure systolic 130 mm Hg 08/13/19 25 Blood pressure diastolic 72 mm Hg 025 Heart Rate 64 /min 08/12/2024 Height 68 in 08/12/2024 BMI 27.03 kg/m2 08/12/2024 Encounters Encounter Location Date Provider Diagnosis [facility] [address] [place] [phone] 08/12/2024 Johnnie Mora Essential hypertensi on with goal blood pressure less than 130\/80 I10 ; Stented coronary artery Z95.5 ; Type 2 diabetes mellitus with other specified complication E11.69 ; Insulin long-term use Z79.4 ; Benign prostatic disease N42.9 ; Arthropathy of left knee M17.12 ; Chronic constipation K59.09 ; Mixed hyperlipidemia E78.2 and BMI 27.0-27.9,adult Z68.27 Assessments Encounter Date Diagnosis (ICD Code) Assessment Notes Treatment Notes Treatment Clinical Notes Section Notes 08/12/2024 Essential hypertension with goal blood pressure less than 130\/80 (ICD-10 - I10) 08/12/2024 Stented coronary artery (ICD-10 - Z95.5) 08/12/2024 Type 2 diabetes mellitus with other specified complication (ICD-10 - E11.69) 08/12/2024 Insulin long-term use (ICD-10 - Z79.4) 08/12/2024 Benign prostatic disease (ICD-10 - N42.9) 08/12/2024 Arthropathy of left knee (ICD-10 - M17.12) 08/12/2024 Chronic constipation (ICD-10 - K59.09) 08/12/2024 Mixed hyperlipidemia (ICD-10 - E78.2) 08/12/2024 BMI 27.0-27.9,adult (ICD-10 - Z68.27) Plan Of Treatment Medication Medication Name Sig Start Date Stop Date Notes metFORMIN HCl 500 MG 1 tablet Orally Onc e a day for 90 days 08/12/2024 Lisinopril 10 mg 1 tablet Orally Once a day for 90 days Carvedilol 25 mg 1 tab(s) Orally Twic e a day for 90 days NovoLOG FlexPen 100 UNIT/ML 40 units sub cutaneously 3 times a day (before meals) for 90 days hydroCHLOROthiazide 25 mg 1 tab(s) Orall y Once a day for 90 days traMADol HCl 50 MG 1 tab(s) orally thre e times a day as needed for 30 days 08/12/2024 amLODIPine Besylate 10 MG 1 tab(s) Orall y once a day for 90 days hydrALAZINE HCl 25 mg 1 tab(s) Orally Tw ice a day for 90 days Clopidogrel Bisulfate 75 mg 1 tablet Ora lly Once a day for 90 days Next Appt Details Follow Up: 2 Months, Reason: Provider Name:Johnnie Ritchie er, 10/21/2024 10:15:00 AM, [address], [address], [place], [phone], Progress Notes * Kory PERALTAOB:1950 (74 yo M)Acc No.[id number]:08/12/2024 Progress Notes Patient: Apollo Paz Provider: Johnnie Mora M.D. :1950 A ge:74 Y S ex:Male Date:08/12/2024 [place] [place] [id number] Subjective: * Chief Complaints: * C heck upNeeds labs with PSA & diabetic eye exam * HPI: C ardiology: The pt is here for a check-up on Hypertension, Hyperlipidemia, and Diabetes. Pt states he is doing good except for some muscle aches for about 2 months. Pt is not fasting. Pt states he is needing refills sent to [facility] for 90 day supply. Denies : Chest Pain. D enies : Short of Breath. D enies : Dizziness. D enies : Palpitations. * ROS: D ERMATOLOGY: no R katrina. n o H nati. G ASTROENTEROLOGY: no N ausea. n o V omiting. n o D iarrhea.? U ROLOGY: no D ifficulty urinating. n o B lood in urine. * Medical History: * Surgical History: H syl 5 surgeries, 2 R, 2 L (inguinal) and 1 umbilical RT knee RT eye orbital surgery 3 Kidney stone procedures Heart Cath with stent placement X 3 02/2010Heart Cath with stent placement x1 12/30/2010Heart Cath, Dr. Ling 02/08/2015Endoscopy right knee, Dr. Riley, [place] 01/2015Colonoscopy Colonoscopy, Dr. Camilo Temporary Pacemaker placement - [facility] Dr Sellers 01/2018Hea Cath and 3 stents-[facility]-Dr Ling 10/2018Back Surgery at [facility] 09/10/2021LT Meniscus Tear Repair 4Colonoscopy, Dr. Camilo, 3 polyps 01/02/24 * Hospitalization/Major Diagno stic Procedure: S aiprecious David- Left Heart Catherization 12/10/10[facility] ER- Eye Injury 02/08/12[facility]- [facility] 02/08/12[id number] - Hypotension, Hyperkalemia, a-fib with rapid response 01/21-01/23/2018[facility] ER- chest pain 10/29[facility] ER-abdominal pain 11/10/18 * Family History: F ather: . M [...] of wine 1 x a month. * Medications: T akingEye Vitamins - Capsule as directed Orally twice a day, Notes: AREDSAspirin 81 MG Tablet Delayed Release 1 tab(s) orally once a dayToujeo SoloStar 300 UNIT/ML Solution Pen-injector 60 units AM, 55 units PM Two times a dayLinzess 290 MCG Capsule 1 cap(s) orally once a dayFinasteride 5 mg Tablet TAKE ONE TABLET BY MOUTH EVERY DAY NovoLOG FlexPen 100 UNIT/ML Solution Pen-injector 40 units subcutaneously 3 times a day (before meals)Rosuvastatin Calcium 20 MG Tablet 1 tab(s) orally once a dayCarvedilol 25 mg Tablet 1 tab(s) Orally Twice a dayLisinopril 10 mg Tablet 2 tablets Orally At Bed TimeamLODIPine Besylate 10 MG Tablet 1 tab(s) Orally once a dayhydrALAZINE HCl 25 mg Tablet 1 tab(s) Orally Twice a dayClopidogrel Bisulfate 75 mg Tablet 1 tablet Orally Once a dayhydroCHLOROthiazide 25 mg Tablet 1 tab(s) Orally Once a daytraMADol HCl 50 MG Tablet 1 tab(s) orally three times a day as neededMedication List reviewed and reconciled with the patientTaking Eye Vitamins - Capsule as directed Orally twice a day, Notes: AREDSTaking Aspirin 81 MG Tablet Delayed Release 1 tab(s) orally once a dayTaking Toujeo SoloStar 300 UNIT/ML Solution Pen-injector 60 units AM, 55 units PM Two times a dayTaking Linzess 290 MCG Capsule 1 cap(s) orally once a dayTaking Finasteride 5 mg Tablet TAKE ONE TABLET BY MOUTH EVERY DAY Taking NovoLOG FlexPen 100 UNIT/ML Solution Pen-injector 40 units subcutaneously 3 times a day (before meals)Taking Rosuvastatin Calcium 20 MG Tablet 1 tab(s) orally once a dayTaking Carvedilol 25 mg Tablet 1 tab(s) Orally Twice a dayTaking Lisinopril 10 mg Tablet 2 tablets Orally At Bed TimeTaking amLODIPine Besylate 10 MG Tablet 1 tab(s) Orally once a dayTaking hydrALAZINE HCl 25 mg Tablet 1 tab(s) Orally Twice a dayTaking Clopidogrel Bisulfate 75 mg Tablet 1 tablet Orally Once a dayTaking hydroCHLOROthiazide 25 mg Tablet 1 tab(s) Orally Once a dayTaking traMADol HCl 50 MG Tablet 1 tab(s) orally three times a day as neededMedication List reviewed and reconciled with the patient * Allergies: P ropoxyphene: hivesno[Allergies Verified] Objective: * Vitals: W t: 177.8, Temp: 98.3, BP: 130/72, HR: 64, Nurse: CIRO, Ht: 68, BMI:27.03. * Examination: G eneral Examination: General Appearance: N AD. O ral cavity: n o lesions, mucosa moist and WNL, no erythema. N paulo: s upple, no lymphadenopathy. C hest: n ormal shape and expansion. H eart: R SR, 120/58. L ungs: c lear to auscultation. Abdomen: soft and nontender, no organomegaly or masses. N eurologic Exam: I ntact, gait normal. S kin: n ormal, no rash. P eripheral pulses: n ormal . B ack:? scar of the low back, some tenderness, no drainage. E xtremities: n o leg edema, some osteoarthritic changes of the knees, but not with severe deformity. Assessment: * Assessment: 1. E ssential hypertension with goal blood pressure less than 130\/80 - I10 2 . S tented coronary artery - Z95.5 3 . T ype 2 diabetes mellitus with other specified complication - E11.69 4 . I nsulin long-term use - Z79.4 5 . B enign prostatic disease - N42.9 6 . A rthropathy of left knee - M17.12 7 . C hronic constipation - K59.09 8 . M ixed hyperlipidemia - E78.2 9 . B OH 27.0-27.9,adult - Z68.27 Plan: * Treatment: Value Reference Range A /G Ratio 2.1 1.1-2.5 - * A lbumin 4.3 3.5-5.3 - g/dL * A lkaline Phosphatase 98 40-129 - IU/L * A LT (SGPT) 10 <5-55 - IU/L * A ST (SGOT) 13 <5-46 - IU/L * B ilirubin, Total 0.5 <0.2-1.2 - mg/dL * B UN 16 8-23 - mg/dL * C alcium 8.9 8.6-10.4 - mg/dL * C hloride 97 97-108 - mmol/L * C O2 25 22-32 - mmol/L * C reatinine 0.92 0.70-1.30 - mg/dL * G lucose 334 H 65-99 - mg/dL * P otassium 4.5 3.5-5.3 - mmol/L * S odium 135 135-145 - mmol/L * P rotein 6.3 6.0-8.3 - g/dL * e GFR by Creatinine 88 >59 - mL/min/1.73m2 * Viviana Blanco 09/20/2024 04: 35:53 PM EDT > See phone encounterThis lab was reviewed by Viviana Blanco on 09/20/2024 at 16:36 PM EDT 2.?Type 2 diabetes mellitus with other specified complication? Refill NovoLOG FlexPen Solution Pen-injector, 100 UNIT/ML, 40 units, subcutaneously, 3 times a day (before meals), 90 days, 105 Milliliter, Refills 1;?Start metFORMIN HCl Tablet, 500 MG, 1 tablet, Orally, Once a day, 90 days, 90 Tablet, Refills 1.??3.?Benign prostatic disease?LAB: P-PSA?Normal* Value Reference Range P SA 0.91 <4.00 - ng/mL * Viviana Blanco 09/20/2024 04: 35:53 PM EDT > See phone encounterThis lab was reviewed by Viviana Blanco on 09/20/2024 at 16:36 PM EDT 4.?Arthropathy of left knee? Refill traMADol HCl Tablet, 50 MG, 1 tab(s), orally, three times a day as needed, 30 days, 90, Refills 0.??5.?Mixed hyperlipidemia?LAB: P-Lipid Panel?trigs 366, hdl 34* Value Reference Range C holesterol / HDL Ratio 3.53 0.00-4.99 - Ratio * C holesterol 120 <200 - mg/dL * H DL Cholesterol 34 L >39 - mg/dL * L DL Cholesterol (Calculation) 13 <130 - mg/d L * L DL/HDL Ratio 0.4 <3.3 - Ratio * N on-HDL Cholesterol 86 <130 - mg/dL * T riglycerides 366 H <150 - mg/dL * Trudy Banuelos 08/23/2024 12:0 6:39 PM > See phone encounterThis lab was reviewed by Trudy Banuelos on 08/23/2024 at 12:06 PM EDT * Labs: * L ab: Glycohemoglobin A1c (in house) 1 0.0 Value Reference Range g lycohemoglobin 10.0% 5 - 6.5 % * Viviana Blanco 09/20/2024 04: 35:53 PM EDT > See phone encounterThis lab was reviewed by Viviana Blanco on 09/20/2024 at 16:36 PM EDT * Procedure Codes: G 2211 Complex e/m visit add [id number] CAPILLARY BLOOD [id number] GLYCATED HEMOGLOBIN TEST, Modifiers: QW G8752 MOST RECENT SYSTOLIC BP < 140MM [id number] MOST RECENT DIASTOLIC BP < 90MM [id number] HEMOGLOBIN A1C LEVEL > 9.0% * Follow Up: 2 Months * Images: Billing Information: * Visit Code: 75896 Office Visit, Est Pt., Level 4. * Procedure Codes: G2211 Complex e/[place]. [address] CAPILLARY BLOOD DRAW. 12223 GLYCATED HEMOGLOBIN TEST. Modifiers: QW G8752 MOST RECENT SYSTOLIC BP < 140MM HG. G8754 MOST RECENT DIASTOLIC BP < 90MM HG. 3046F HEMOGLOBIN A1C LEVEL > 9.0%. * Sign off status: Completed true * Provider: Johnnie Mora M.D. Date: 0 08/12/2024 Generated for Kristen jesus/Ok/Elianesmitting on: 0 09/29/2024 07:28 PM EDT History and Physical Notes * HPI (History of Present Illness) Category Sub-Category Detail Notes Category Not es Cardiology Short of Breath Chest Pain Palpitations Dizziness Examination Category Sub-Category Detail Notes Category Not es General Examination HEENT: Heart: RSR, 120/58 Lungs: clear to auscultatio n Abdomen: soft and nontender, no organomegaly or masses Extremities: no leg edema, some o steoarthritic changes of the knees, but not with severe deformity General Appearance: NAD Skin: normal, no rash Neurologic Exam: Intact, gait normal Neck: supple, no lymphaden opathy Oral cavity: no lesions, mucosa m oist and WNL, no erythema Peripheral pulses: normal Back: scar of the low back , some tenderness, no drainage Chest: normal shape and exp ansion
--- OUTSIDE RECORDS SUMMARY | 2024-09-19 11:30 | XMS_ITS ---
Author Organization [facility] Address [address] [facility] [address] [place] [id number] Care Team Providers Care Clearing House Clerk Name Role Phone Johnnie Mora Primary Care Provider [phone] Gómez Syde Unavailable [phone] Allergies Allergen (clinical drug ingredient) Drug/Non Drug Allergy documented on EMR Reaction Allergy Type Onset Date Status propoxyphene Propoxyphene hives Drug Allergy A ctive Results Component Value Reference Range Notes CBC Venipuncture (in house) Reviewed date:09/20/2024 09:37:50 AM Interpretation: Performing Lab: Notes/Report: wbc 9.4 3.5 - 10 lymph 17.4% 15 - 50 mid 5.6% 2 - 15 gran 77.0% 35 - 80 rbc 4.64 3.5 - 5.5 hgb 13.7 11.5 - 16.5 hct 40.9 35 - 55 mcv 88.1 75 - 100 mch 29.6 25 - 35 mchc 33.6 31 - 38 platlet 193 100 - 400 P-CPK Reviewed date:09/20/2024 04:36:02 PM Interpretation:Normal Performing Lab: Notes/Report: Test performed by [email or web address] [place] [address], [address], [place] [address] Sage Joshi MD, Research Psychologist CLIA: [id number] Creatine Kinase 58 20-200 U/L P-Arthritis Panel, [employer] Reviewed date:09/20/2024 04:36:02 PM Interpretation:ESR 23 Performing Lab: Notes/Report: Test performed by [email or web address] [address] [place] [address] , [address], [place] [address] Sage Joshi MD, Research Psychologist CLIA: [id number] Erythrocyte Sedimentation Rate (ESR), Automated 23 <21 mm/hr Rheumatoid Factor 11.0 <14.1 IU/mL C-Reactive Protein (CRP) 0.33 <0.50 mg/dL Antinuclear Antibodies (AYLEEN) Screen, Reflex AYLEEN 9 Panel Negative Negative This test is performed by Multiplex Bead Immunoassay methodology. Antinuclear Antibodies (AYLEEN) Result Note SEE COMMENT For positive Autoantibodies, please refer to the interpretive chart here: [email or web address] CCP Antibodies <0.5 <0.5-3.0 U/mL P-TSH reflex to FT4 Reviewed date:09/20/2024 04:36:02 PM Interpretation:Normal Performing Lab: Notes/Report: Test performed by [facility] [address] , [address], [place] [address] Sage Joshi MD, Research Psychologist CLIA: [id number] TSH reflex to FT4 1.69 0.43-5.25 mU/L REASON FOR VISIT joint pain Medications Medication SIG (Take, Route, Frequency, Duration) Notes Start Date End Date Status Ezetimibe 10 MG 1 tablet Orally Once a day for 30 days 08/26/2024 Active metFORMIN HCl 500 MG 1 tablet Orally Onc e a day for 90 days 08/12/2024 Active dexAMETHasone 4 MG 1 tablet Orally twic e a day for 5 days 09/19/2024 Active Zithromax Z-Arturo 250 MG as directed Orall y daily for 5 days 09/19/2024 Active NovoLOG FlexPen 100 UNIT/ML INJECT 40 UN ITS SUBCUTANEOUSLY THREE TIMES DAILY BEFORE MEAL(S) for 88 Active traMADol HCl 50 MG 1 tab(s) orally thre e times a day as needed for 30 days 08/12/2024 Active hydroCHLOROthiazide 25 mg 1 tab(s) Orall y Once a day for 90 days Active Clopidogrel Bisulfate 75 mg 1 tablet Ora lly Once a day for 90 days Active hydrALAZINE HCl 25 mg 1 tab(s) Orally Tw ice a day for 90 days Active amLODIPine Besylate 10 MG 1 tab(s) Orall y once a day for 90 days Active Carvedilol 25 mg 1 tab(s) Orally Twic e a day for 90 days Active Lisinopril 10 mg 1 tablet Orally Once a day for 90 days Active Rosuvastatin Calcium 20 MG 1 tab(s) oral ly once a day for 90 days Active Finasteride 5 mg TAKE ONE TABLET BY M OUTH EVERY DAY for 90 days Active Linzess 290 MCG 1 cap(s) orally once a day for 90 days 2022 Active Toujeo SoloStar 300 UNIT/ML 60 units AM, 55 units PM Two times a day Active Aspirin 81 MG 1 tab(s) orally once a day Active Eye Vitamins - as directed Orally t wice a day AREDS Active Vital Signs Weight 176 lbs 09/19/2024 Blood pressure systolic 140 mm Hg 09/20/19 25 Blood pressure diastolic 80 mm Hg 025 Heart Rate 70 /min 09/19/2024 Height 68 in 09/19/2024 BMI 26.76 kg/m2 09/19/2024 Encounters Encounter Location Date Provider Diagnosis [facility] [address] [facility] [address] [place], [place] [id number] 09/19/2024 Gómez Fabianberry Myalgia, multiple si jasmyn M79.18 ; Polyarthralgia M25.50 ; Nasal congestion R09.81 and BMI 26.0-26.9,adult Z68.26 Assessments Encounter Date Diagnosis (ICD Code) Assessment Notes Treatment Notes Treatment Clinical Notes Section Notes 09/19/2024 Myalgia, multiple sites (ICD-10 - M79.18) 09/19/2024 Polyarthralgia (ICD-10 - M25.50) 09/19/2024 Nasal congestion (ICD-10 - R09.81) 09/19/2024 BMI 26.0-26.9,adult (ICD-10 - Z68.26) Plan Of Treatment Medication Medication Name Sig Start Date Stop Date Notes dexAMETHasone 4 MG 1 tablet Orally twic e a day for 5 days 09/19/2024 Zithromax Z-Arturo 250 MG as directed Orally daily for 5 days 09/19/2024 Next Appt Details Follow Up: via phone to repo rt test results, Reason: Provider Name:Johnnie oswald, 10/21/2024 10:15:00 AM, [address], [address], [place], [place], [phone], Progress Notes * Kory RAZOOB:1950 (74 yo M)Acc No.[id number]:09/19/2024 Progress Notes Patient: Apollo BYNUM Provider: Eamon Syed M.D. :1950 A ge:74 Y S ex:Male Date:09/19/2024 Address:[address] [place], [facility] Pcp:Johnnie Mora Subjective: * Chief Complaints: * 1 . Joint pain. * HPI: R heumatology: 74 year old male presents with c/o joint pain P t complains of multiple joint pain for about 2 months. Pt states every joint in his body including his fingers hurt. Pt states his hands do swell at times. Pt states that walking is painful. Symptoms started about 2 days after he completed a [employer] cruise. * ROS: D ERMATOLOGY: no R katrina. n o H nati. G ASTROENTEROLOGY: no N ausea. n o V omiting. U ROLOGY: no D ifficulty urinating. n o B lood in urine. * Medical History: R [place] Spotted Fever-Autoimmnue Disease, Diabetes Mellitus, Hypertension, Hyperlipidemia, Hypertriglyceridemia, Esophageal Reflux, BPH, Coronary Artery Disease with stents 02/2010, Anisocoria d/t trauma left eye, Cath 01/21/2018 with temp pacer. Cath 02/01/18 with stent, Dr. Sellers, [facility], macular degeneration see 04/28/[address] Guardado. Referral to Dr. Orr, Colon polyps. * Surgical History: H ernia 5 surgeries, 2 R, 2 L (inguinal) and 1 umbilical , RT knee , RT eye orbital surgery , 3 Kidney stone procedures , Heart Cath with stent placement X 3 02/2010, Heart Cath with stent placement x1 12/30/2010, Heart Cath, Dr. Ling 02/08/2015, Endoscopy right knee, Dr. Riley [place] 01/2015, Colonoscopy , Colonoscopy, Dr. Camilo , Temporary Pacemaker placement - [facility] Dr Sellers 01/2018, Heart Cath and 3 stents-[facility]Dr Ling 10/2018, Back Surgery at [facility] 09/10/2021, LT Meniscus Tear Repair 09/18/2023, Colonoscopy, Dr. Camilo, 3 polyps 01/02/24. * Hospitalization/Major Diagno stic Procedure: S andrea Hernandez- Left Heart Catherization 12/10/2010, [facility] ER- Eye Injury 02/08/2012, ER- Eye Injury 02/08/2012, [facility] 04/13/2014, [facility] - Hypotension, Hyperkalemia, a-fib with rapid response 01/21-, [facility] ER-chest pain 10/2018, [facility] ER-abdominal pain 11/10/2018. * Family History: F ather: . M [...] 1 x a month. * Medications: T aking Eye Vitamins - Capsule as directed Orally twice a day , Notes to Pharmacist: AREDS, Taking Aspirin 81 MG Tablet Delayed Release 1 tab(s) orally once a day , Taking Toujeo SoloStar 300 UNIT/ML Solution Pen-injector 60 units AM, 55 units PM Two times a day , Taking Linzess 290 MCG Capsule 1 cap(s) orally once a day , Taking Finasteride 5 mg Tablet TAKE ONE TABLET BY MOUTH EVERY DAY , Taking Rosuvastatin Calcium 20 MG Tablet 1 tab(s) orally once a day , Taking Lisinopril 10 mg Tablet 1 tablet Orally Once a day , Taking Carvedilol 25 mg Tablet 1 tab(s) Orally Twice a day , Taking amLODIPine Besylate 10 MG Tablet 1 tab(s) Orally once a day , Taking hydrALAZINE HCl 25 mg Tablet 1 tab(s) Orally Twice a day , Taking Clopidogrel Bisulfate 75 mg Tablet 1 tablet Orally Once a day , Taking hydroCHLOROthiazide 25 mg Tablet 1 tab(s) Orally Once a day , Taking traMADol HCl 50 MG Tablet 1 tab(s) orally three times a day as needed , Taking metFORMIN HCl 500 MG Tablet 1 tablet Orally Once a day , Taking Ezetimibe 10 MG Tablet 1 tablet Orally Once a day , Taking NovoLOG FlexPen 100 UNIT/ML Solution Pen-injector INJECT 40 UNITS SUBCUTANEOUSLY THREE TIMES DAILY BEFORE MEAL(S) * Allergies: P ropoxyphene: hives. Objective: * Vitals: W t: 176, Temp: 98.0, BP: 140/80, HR: 70, Nurse: estefania, Ht: 68, BMI:26.76. * Examination: E NT/Respiratory: General Appearance: N AD, stands and moves slowly due to pain. Eyes: P ERRLA, sclera clear. Oral cavity : e rythema without exudate on pharynx. Heart : R RR, normal S1 S2. Lungs: c lear to auscultation bilaterally. Extremities : n o edema. Skin : c lear without rashes. Assessment: * Assessment: 1. M yalgia, multiple sites - M79.18 (Primary) 2 . P olyarthralgia - M25.50? 3. N dalia congestion - R09.81 4 . B NH 26.0-26.9,adult - Z68.26 Plan: * Treatment: Value Reference Range C reatine Kinase 58 20-200 - U/L * Viviana Blanco 09/20/2024 04: 35:53 PM EDT > See phone encounter ?LAB: P-TSH reflex to FT4 (Collection Date & Time - 09/19/2024 03:25 PM)? Normal* Value Reference Range T SH reflex to FT4 1.69 0.43-5.25 - mU/L * Viviana Blanco 09/20/2024 04: 35:53 PM EDT > See phone encounter 2.?Polyarthralgia? Start dexAMETHasone Tablet, 4 MG, 1 tablet, Orally, twice a day, 5 days, 10 Tablet, Refills 0.?LAB: P-Arthritis Panel, [facility] (Collection Date & Time - 09/19/2024 03:25 PM)?ESR 23* Value Reference Range A ntinuclear Antibodies (AYLEEN) Result Note SEE COMMENT - * A ntinuclear Antibodies (AYLEEN) Screen, Reflex AYLEEN 9 Panel Negative Negative - * C CP Antibodies <0.5 <0.5-3.0 - U/mL * C -Reactive Protein (CRP) 0.33 <0.50 - mg/dL * E rythrocyte Sedimentation Rate (ESR), Automated 23 H <21 - mm/hr * R heumatoid Factor 11.0 <14.1 - IU/mL * Viviana Blanco 09/20/2024 04: 35:53 PM EDT > See phone encounter 3.?Nasal congestion? Start Zithromax Z-Arturo Tablet, 250 MG, as directed, Orally, daily, 5 days, 6, Refills 0.?LAB: CBC Venipuncture (in house) (Collection Date & Time - 09/19/2024)* Value Reference Range w bc 9.4 3.5 - 10 * l ymph 17.4% 15 - 50 * m id 5.6% 2 - 15 * g ran 77.0% 35 - 80 * r bc 4.64 3.5 - 5.5 * h gb 13.7 11.5 - 16.5 * h ct 40.9 35 - 55 * m cv 88.1 75 - 100 * m ch 29.6 25 - 35 * m chc 33.6 31 - 38 * p latlet 193 100 - 400 * Billie Villar 09/19/2024 05:07:3 8 PM EDT > results reviewed w/ pt in office * Procedure Codes: G 2211 Complex e/[place], [address] CBC WITH AUTO DIFF, 76618 VENIPUNCT, ROUTINE*, 1036F TOBACCO NON-USER, G8420 BMI<30 AND >=22 CALC & DOCU * Follow Up: v ia phone to report test results * Billing Information: * Visit Code: 99212 Office Visit, Est Pt., Level 4. * Procedure Codes: G2211 Complex e/[place]. [address] CBC WITH AUTO DIFF. 86898 VENIPUNCT, ROUTINE*. 1036F TOBACCO NON-USER. G8420 BMI<30 AND >=22 CALC & DOCU. * Electronic signature of Alba Syed MD on 09/29/2024 at 07:27 PM EDT Sign off status: Pending * Provider: Eamon Syed M.D. Date: 0 09/19/2024 Generated for Kristen jesus/Ok/Sven on: 0 09/29/2024 07:27 PM EDT History and Physical Notes * HPI (History of Present Illness) Category Sub-Category Detail Notes Category Not es Rheumatology joint pain Pt complains of multiple joint pain for about 2 months. Pt states every joint in his body including his fingers hurt. Pt states his hands do swell at times. Pt states that walking is painful. Symptoms started about 2 days after he completed a [employer] cruise Examination Category Sub-Category Detail Notes Category Not es ENT/Respiratory Oral cavity : erythema without exudate on pharynx Heart : RRR, normal S1 S2 Lungs: clear to auscultatio n bilaterally Extremities : no edema General Appearance: NAD, stands and move s slowly due to pain Skin : clear without rashes Eyes: PERRLA, sclera clear
[2024-09-29 19:18] VITALS: BP 158/75; PULSE 74; RESP 16; TEMP 36.8; O2SAT 95; BMI 25.8
--- NOTE | 2024-09-29 19:20 | XR_ITS ---
PROCEDURE INFORMATION: Exam: XR Left Forearm Exam date and time: 09/29/2024 7:23 PM Age: 74 years old Clinical indication: Injury or trauma; Fall; Other: Pain; Additional info: Foosh TECHNIQUE: Imaging protocol: Radiologic exam of the left forearm. Views: 2 views. COMPARISON: CR XR FOREARM LT 2V 09/29/2024 7:23 PM FINDINGS: Bones/joints: Normal. No acute fracture identified. Soft tissues: Normal. IMPRESSION: No acute findings.
--- NOTE | 2024-09-29 19:20 | XR_ITS ---
PROCEDURE INFORMATION: Exam: XR Left Wrist Exam date and time: 09/29/2024 7:23 PM Age: 74 years old Clinical indication: Injury or trauma; Fall; Other: Pain; Additional info: [employer]osh TECHNIQUE: Imaging protocol: Radiologic exam of the left wrist. Views: 3 or more views. COMPARISON: CR XR FOREARM LT 2V 09/29/2024 7:23 PM FINDINGS: Bones/joints: Soft tissue swelling posterior to the carpal bone region on the lateral view. A bony density is noted adjacent to the intercarpal region that may reflect avulsion fracture. This is only seen on lateral view. Old ununited avulsion fracture of the ulnar styloid. Soft tissues: See Bones/joints finding. IMPRESSION: 1. Soft tissue swelling posterior to the carpal bones. 2. Potential avulsion fracture posteriorly arising off of the carpal bones of uncertain donor site.
[2024-09-29] MEDS: IBUPROFEN 600 MG TABLET PO (19:27)
[2024-09-29] MEDS: ACETAMINOPHEN 500MG TAB 1000 MG PO (19:27)
--- OUTSIDE RECORDS SUMMARY | 2024-09-29 19:28 | XMS_ITS | Clinical Summary ---
Author Organization Healthcare Address [address] [place] [address] Care Team Providers Care Technology Applications Teacher Name Role Phone Sudheer Mora MD Primary Care Provider Social History Tobacco Use Types Packs/Day Years Used Date Smoking Tobacco: Never Assessed Sex and Gender Information Value Date Recorded Sex Assigned at Not on file Legal Sex Male 9:10 PM EDT Gender Identity Not on file Sexual Orientation Not on file Plan of Treatment Health Maintenance Due Date Last Done Comments [facility]-Depression Screening 1950 [facility]-Infant/Child/Adol SDOH Screenings 1950 [facility]- SDOH Screenings 1969 [facility]-Adult SDOH Screenings 1969 CT Colonography 1996 Colonoscopy 1996 FIT-DNA 1996 FIT 1996 FOBT 1996 Sigmoidoscopy 1996 [facility]-Colorectal Cancer Screening 1996 [id number] Vaccine ( season) 2023 02/16/2021, 06/30/2020 [facility]-Influenza Vaccine ([place]as[place] n Ended) 2024 01/15/2021 [facility]-RSV Vaccine: 60+ Years o r (1 - 1-dose 75+ series) 2026 [facility]-DTaP,Tdap,and Td Vaccine s (2 - Td or Tdap) 06/19/2028 06/19/2018 [facility]-Pneumococcal Vaccine: 50 + Years Completed 02/10/2020, 06/19/2018 [facility]-Zoster Vaccines Completed 04/11/2021, 01/21/2021 HPV Vaccines Aged Out No longer eligi ble based on patient's age to complete this topic [facility]-HIB Vaccines Aged Out No longer e ligible based on patient's age to complete this topic [facility]-Hepatitis A Vaccines Aged Out No longer eligible based on patient's age to complete this topic [facility]-IPV Vaccines Aged Out No longer e ligible based on patient's age to complete this topic [facility]-Rotavirus Vaccines Aged Out No lo nger eligible based on patient's age to complete this topic Care Teams Technology Applications Teacher Relationship Specialty Start Date End Date Sudheer Mora MD [address] [place] [id number] PCP - General 08/24/20
--- OUTSIDE RECORDS SUMMARY | 2024-09-29 19:28 | XMS_ITS | Patient Health Record ---
Author Organization [facility] Address [address] [place] [id number] Care Team Providers Care Company Driver Name Role Phone Johnnie Mora Primary Care Provider [phone] Gómez Syed Unavailable [phone] Allergies Allergen (clinical drug ingredient) Drug/Non Drug [...] Interpretation:Normal Performing Lab: Notes/Report: Test performed by [facility] [employer] [place] , [place] [address] Sage Joshi MD, Product Support Manager CLIA: [id number] Creatine Kinase 58 20-200 U/L P-Arthritis Panel, [employer] Reviewed date:09/20/2024 04:36:02 PM Interpretation:ESR 23 Performing Lab: Notes/Report: Test performed by [facility] [address] [place], [place] [address] [place] , [place] [address] Sage Joshi MD, Product Support Manager CLIA: [id number] Erythrocyte Sedimentation Rate (ESR), Automated 23 <21 mm/hr Rheumatoid Factor 11.0 <14.1 IU/mL C-Reactive Protein (CRP) 0.33 <0.50 mg/dL Antinuclear Antibodies (AYLEEN) Screen, Reflex AYLEEN 9 Panel Negative Negative This test is performed by Multiplex Bead Immunoassay methodology. Antinuclear Antibodies (AYLEEN) Result Note SEE COMMENT For positive Autoantibodies, please refer to the interpretive chart here: [email or web address] CCP Antibodies <0.5 <0.5-3.0 U/mL P-TSH reflex to FT4 Reviewed date:09/20/2024 04:36:02 PM Interpretation:Normal Performing Lab: Notes/Report: Test performed by [facility] [address] [place] [address] , [address], [place] [address] Sage Joshi MD, Product Support Manager CLIA: [id number] TSH reflex to FT4 1.69 0.43-5.25 mU/L Glycohemoglobin A1c (in hous e) Reviewed date:01/11/2024 10:22:55 AM Interpretation: Performing Lab: Notes/Report: glycohemoglobin 9.4% 5 - 6.5 % P-Comprehensive Metabolic Pa gloria (CMP) Reviewed date:01/15/2024 01:59:35 PM Interpretation:gluc 288, a1c discussed in OV, pt referred to Endo Performing Lab: Notes/Report: Test performed by [facility] [address] [place] [address] , [address], [place] [address] Sage Joshi MD, Product Support Manager CLIA: [id number] Sodium 137 135-145 mmol/L Potassium 3.7 3.5-5.3 mmol/L Chloride 102 97-108 mmol/L CO2 28 22-32 mmol/L Glucose 288 65-99 mg/dL BUN 15 8-23 mg/dL Creatinine 0.79 0.70-1.30 mg/dL Calcium 8.6 8.6-10.4 mg/dL eGFR by Creatinine 94 >59 mL/min/1.73m2 Protein 6.0 6.0-8.3 g/dL Albumin 4.1 3.5-5.3 g/dL Alkaline Phosphatase 90 40-129 IU/L ALT (SGPT) 7 <5-55 IU/L AST (SGOT) 8 <5-46 IU/L Bilirubin, Total 0.3 <0.2-1.2 mg/dL A/G Ratio 2.2 1.1-2.5 Glycohemoglobin A1c (in hous e) Reviewed date:09/20/2024 04:36:03 PM Interpretation:10 Performing Lab: Notes/Report: 10 glycohemoglobin 10.0% 5 - 6.5 % P-Comprehensive Metabolic Pa gloria (CMP) Reviewed date:09/20/2024 04:36:02 PM Interpretation:gluc 334 Performing Lab: Notes/Report: Test performed by [facility] [address] [place] [address] , [address], [place] [address] Sage Joshi MD, Product Support Manager CLIA: [id number] Sodium 135 135-145 mmol/L Potassium 4.5 3.5-5.3 [...] 34 Performing Lab: Notes/Report: Test performed by [facility] [address] [place], [place] [address] [place] , [address], [place] [address] Sage Joshi MD, Product Support Manager CLIA: [id number] Cholesterol 120 <200 mg/dL Triglycerides 366 <150 [...] Interpretation:Normal Performing Lab: Notes/Report: Test performed by [email or web address], [address] , [facility] [address], [place] [address] Sage Joshi MD, Product Support Manager CLIA: [id number] PSA 0.91 <4.00 ng/mL Please note this is an ultrasensitive PSA assay with a lower limit of detection of 0.014 ng/mL. This test is performed by the Leanne ECLIA methodology. Values obtained with different assay methods or kits cannot be directly compared. Medications Medication SIG (Take, Route, Frequency, Duration) Notes Start Date End Date Status Ezetimibe 10 MG 1 tablet Orally Once a day for 30 days 08/26/2024 Active metFORMIN HCl 500 MG 1 tablet Orally Onc e a day for 90 days 08/12/2024 Active traMADol HCl 50 MG 1 tab(s) [...] ice a day for 90 days Active dexAMETHasone 4 MG 1 tablet Orally twic e a day for 5 days 09/19/2024 Active amLODIPine Besylate 10 MG 1 tab(s) Orall y once a day for 90 days Active Zithromax Z-Arturo 250 MG as directed Orall y daily for 5 days 09/19/2024 Active Carvedilol 25 mg 1 tab(s) Orally [...] Orally t wice a day AREDS Active Cefdinir 300 MG 1 tablet Orally twic e a day for 5 days 09/29/2024 Active Jardiance 25 MG 1 tablet Orally Once a day for 90 days 09/23/2024 Active NovoLOG FlexPen 100 UNIT/ML INJECT 40 UN ITS SUBCUTANEOUSLY THREE TIMES DAILY BEFORE MEAL(S) for 88 Active Immunizations Vaccine Route Administration Date Status Comme nts Tetanus Tdap-Adacel (over 7yrs) IM Intramuscular 06/19/2018 Administered Shingrix Unknown 01/21/2021 Administered Shingrix Unknown 04/11/2021 Administered Prevnar (PCV13) IM Intramuscular 06/19/2018 Administered PNEUMOVAX 23 VACCINE IM Intramuscular 02/10/2020 Administe red Fluzone High Dose (65yr and older) IM Intramuscular 05/12/2017 Administered Fluzone High Dose (65yr and older) IM Intramuscular 12/14/2019 Administered Fluzone High Dose (65yr and older) IM Intramuscular 01/08/2022 Administered COVID 19 Brianna Unknown 06/30/2020 Administered COVID 19 Brianna Unknown 02/16/2021 Administered Problems Problem Type SNOMED Code ICD Code Onset Dates Problem Status W/U Status Risk Notes Problem 477987082 Right upper quad rant abdominal pain (R10.11) Active confirmed Problem 194230960 Diverticulitis (K57.92) Active confirmed Problem 905218618 Right upper quad rant pain (R10.11) Active confirmed Problem 80880535 Type 2 diabetes mellitus with other specified complication (E11.69) Active confirmed Problem 358664778 Mixed hyperlipid emia (E78.2) Active confirmed Problem 30745144 Restless legs syndrome (G25.81) Active confirmed Problem 87184208 Coronary arteriosclerosis (I25.10) Active confirmed Problem 12719219 Constipation by delayed colonic transit (K59.01) Active confirmed Problem 35359524 Benign prostatic disease (N42.9) Active confirmed Problem 615522117 Gastroesophageal reflux disease without esophagitis (K21.9) Active confirmed Problem 38566109 Bronchitis (J40) Active confirmed Problem 666402941 Insulin long-ter m use (Z79.4) Active confirmed Problem 9182170249961 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) Active confirmed Problem 74806391 Idiopathic peripheral neuropathy (G60.9) Active confirmed Problem 026746115 Diabetic polyneuropathy associated with type 2 diabetes mellitus (E11.42) Active confirmed Problem 59094422 Essential hypertension with goal blood pressure less than 130\/80 (I10) Active confirmed Problem 294274700 Stented coronary artery (Z95.5) Active confirmed Problem 98833919 Herpes zoster wi th other complication (B02.8) Active confirmed Problem 125163234 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) Active confirmed Problem 108687501 Macular degenera tion (senile) of retina (H35.30) Active confirmed Problem 109982442 Abnormal CT scan (R93.89) Active confirmed Vital Signs Heart Rate 70 /min 09/19/2024 Blood pressure diastolic 80 mm Hg 09/19/2024 Height 68 in 09/19/2024 Blood pressure systolic 140 mm Hg 09/19/2024 Weight 176 lbs 09/19/2024 BMI 26.76 kg/m2 09/19/2024 Encounters Encounter Location Date Provider Diagnosis Sergey 1209 [facility] [address] [place] [id number] 11/11/2023 G[facility] Furuncle, unspecifie d L02.92 [facility] [address] [place], [place] [id number] 01/11/2024 Johnnie Mora Type 2 diabetes jb itus with other specified complication E11.69 ; Stented coronary artery Z95.5 ; Essential hypertension with goal blood pressure less than 130\/80 I10 ; Arthropathy of left knee M17.12 and Constipation by delayed colonic transit K59.01 [facility] [address] [place] [id number] 09/19/2024 G[facility] Myalgia, multiple si jasmyn M79.18 ; Polyarthralgia M25.50 ; Nasal congestion R09.81 and BMI 26.0-26.9,adult Z68.26 [facility] [address] [place], [place] [id number] 08/12/2024 Johnnie Mora Essential hypertensi on with goal blood pressure less than 130\/80 I10 ; Stented coronary artery Z95.5 ; Type 2 diabetes mellitus with other specified complication E11.69 ; Insulin long-term use Z79.4 ; Benign prostatic disease N42.9 ; Arthropathy of left knee M17.12 ; Chronic constipation K59.09 ; Mixed hyperlipidemia E78.2 and BMI 27.0-27.9,adult Z68.27 [facility] [address] [place] [facility] [address] [place], [place] [id number] 10/29/2023 Johnnie Mora Right upper quadrant abdominal pain R10.11 [facility] [address] [place] [id number] 10/30/2023 Johnnie Mora Right upper quadrant abdominal pain R10.11 [facility] [address] [place], [place] [id number] 01/11/2024 Johnnie Cirilo Mora [facility] [address] [facility] [address] [place], [place] [id number] 01/11/2024 Johnnie Cirilo Mora [facility] [address] [facility] [address] [place] [id number] 01/11/2024 Johnnie Cirilo Mora [facility] [address] [facility] [address] [place], [place] [id number] 03/04/2024 Johnnie Mora Essential hypertensi on with goal blood pressure less than 130\/80 I10 [facility] [address] [facility] [address] [place], [place] [id number] 03/17/2024 Johnnie Mora Type 2 diabetes jb itus with other specified complication E11.69 ; Essential hypertension with goal blood pressure less than 130\/80 I10 ; Stented coronary artery Z95.5 ; Constipation by delayed colonic transit K59.01 and Right upper quadrant abdominal pain R10.11 [facility] [address] [facility] [address] [place], [place] [id number] 08/05/2024 [facility] Type 2 diabetes jb itus with other specified complication E11.69 ; Stented coronary artery Z95.5 ; Essential hypertension with goal blood pressure less than 130\/80 I10 and Right upper quadrant abdominal pain R10.11 [facility] [address] [facility] [address] [place], [place] [id number] 08/23/2024 Johnnie Mora Type 2 diabetes jb itus with other specified complication E11.69 [facility] [address] [facility] [address] [place] [id number] 09/20/2024 G[facility] [address] [facility] [address] [place] [id number] 09/27/2024 Johnnie Mora [facility] [address] [facility] [address] [place], [place] [id number] 09/28/2024 G[facility] Assessments Encounter Date Diagnosis (ICD Code) Assessment Notes Treatment Notes Treatment Clinical Notes Section Notes 10/29/2023 Right upper quadrant abdominal pain (ICD-10 - R10.11) 10/30/2023 Right upper quadrant abdominal pain (ICD-10 - R10.11) 11/11/2023 Furuncle, unspecified (ICD-10 - L02.92) 01/11/2024 Type 2 diabetes mellitus with other specified complication (ICD-10 - E11.69) check 2 hr post prandials 01/11/2024 Stented coronary artery (ICD-10 - Z95.5) 03/04/2024 Essential hypertension with goal blood pressure less than 130\/80 (ICD-10 - I10) 03/17/2024 Type 2 diabetes mellitus with other specified complication (ICD-10 - E11.69) 08/05/2024 Type 2 diabetes mellitus with other specified complication (ICD-10 - E11.69) 08/12/2024 Essential hypertension with goal blood pressure less than 130\/80 (ICD-10 - I10) 08/12/2024 Stented coronary artery (ICD-10 - Z95.5) 08/23/2024 Type 2 diabetes mellitus with other specified complication (ICD-10 - E11.69) 09/19/2024 Polyarthralgia (ICD-10 - M25.50) 09/19/2024 Myalgia, multiple sites (ICD-10 - M79.18) 09/19/2024 Nasal congestion (ICD-10 - R09.81) 08/05/2024 Stented coronary artery (ICD-10 - Z95.5) 08/12/2024 Type 2 diabetes mellitus with other specified complication (ICD-10 - E11.69) 01/11/2024 Essential hypertension with goal blood pressure less than 130\/80 (ICD-10 - I10) 03/17/2024 Essential hypertension with goal blood pressure less than 130\/80 (ICD-10 - I10) 01/11/2024 Arthropathy of left knee (ICD-10 - M17.12) 03/17/2024 Stented coronary artery (ICD-10 - Z95.5) 08/05/2024 Essential hypertension with goal blood pressure less than 130\/80 (ICD-10 - I10) 08/12/2024 Insulin long-term use (ICD-10 - Z79.4) 09/19/2024 BMI 26.0-26.9,adult (ICD-10 - Z68.26) 08/12/2024 Benign prostatic disease (ICD-10 - N42.9) 08/05/2024 Right upper quadrant abdominal pain (ICD-10 - R10.11) 03/17/2024 Constipation by delayed colonic transit (ICD-10 - K59.01) 01/11/2024 Constipation by delayed colonic transit (ICD-10 - K59.01) 03/17/2024 Right upper quadrant abdominal pain (ICD-10 - R10.11) 08/12/2024 Arthropathy of left knee (ICD-10 - M17.12) 08/12/2024 Chronic constipation (ICD-10 - K59.09) 08/12/2024 Mixed hyperlipidemia (ICD-10 - E78.2) 08/12/2024 BMI 27.0-27.9,adult (ICD-10 - Z68.27) Plan Of Treatment Next Appt Details Provider Name:Johnnie Kerr Erma oswald, 10/21/2024 10:15:00 AM, [address] [facility], [address], [place], [place], [id number], Insurance Providers Payer Name Payer Address Payer Phone Subscriber Number Group Number Insured Name Patient Relationship to Insured Coverage Start Date Coverage End Date MEDICARE PART B [address] [address] [place] [address] [id number] Apollo Razo Self - patient is the insured [employer] [address] [place] [address] [id number] Apollo Razo Self - patient is the insured Medications Administered Medication Instructions Date of Administration Dosage Notes B-12 12/15/2014 1 mL Medical (General) History Medical History History ICD Code [place] Spotted Fever-Autoimmnue Disease Diabetes Mellitus Hypertension Hyperlipidemia Hypertriglyceridemia Esophageal Reflux BPH Coronary Artery Disease with stents 02/12 010 [facility] d/t trauma left eye Cath 01/21/2018 with temp pacer. Cath with stent, Dr. Sellers, [facility] macular degeneration see 04/13 09/[address] Guardado. Referral to [place] Colon polyps Surgical History Surgery Date(Month/Year) Hernia 5 surgeries, 2 R, 2 L (inguinal) and 1 umbilical RT knee RT eye orbital surgery 3 Kidney stone procedures Heart Cath with stent placement X 3 02/12 010 Heart Cath with stent placement x1 12/30 Heart Cath, Dr. Ling 02/08/2015 Endoscopy right knee, Dr. Riley, [facility] 01/2015 Colonoscopy Colonoscopy, Dr. Camilo Temporary Pacemaker placement - [facility] Dr Sellers 01/2018 Heart Cath and 3 stents-[facility]-Dr Brenda ocampo 10/2018 Back Surgery at [facility] 09/10/2021 LT Meniscus Tear Repair 09/18/2023 Colonoscopy, Dr. Camilo, 3 polyps 4 Hospitalization History Reason Date(Month/Year) [facility] ER-abdominal pain 11/10/2018 [facility] ER-chest pain 10/2018 [facility] - Hypotension , Hyperkalemia, a-fib with rapid response 01/21- [facility] 0 04/13/2014 ER- Eye Injury 02/08/2012 [facility] ER- Eye Injury 02/08/2012 [facility]- Left Heart Catherization 11/13
--- OUTSIDE RECORDS SUMMARY | 2024-09-29 19:28 | XMS_ITS ---
Author Organization Unknown TREATMENT PLAN [facility] Start Date Provider Encounter for Check-up [id number] [facility]
--- OUTSIDE RECORDS SUMMARY | 2024-09-29 19:28 | XMS_ITS | Clinical Summary ---
Author Organization [facility] Address [address] [place] [address] Care Team Providers Care Meteorological Observer Name Role Phone Unavailable Primary Care Provider Unavailabl e Allergies Active Allergy Reactions Criticality Noted Date Comments Propoxyphene Hives High 02/21/2020 Medications amLODIPine (NORVASC) 10 MG tablet Take 10 mg by mouth daily. 2 Active carvediloL (COREG) 25 MG tablet Take 25 mg by mouth 2 (two) times daily. 2 Active cyclobenzaprin e (FLEXERIL) 10 MG tablet Take 10 mg by mouth every 8 (eight) hours as needed. 2 Active hydrALAZINE (APRESOLINE) 25 MG tablet Take 25 mg by mouth 2 (two) times daily. 2 Active hydroCHLOROthi azide (HYDRODIURIL) 25 MG tablet Take 25 mg by mouth daily. 2 Active NovoLOG Flexpen U-100 Insulin 100 unit/mL (3 mL) InPn SMARTSI Unit(s) SUB-Q 3 Times Daily 2 Active Advocate Pen Needle 31 gauge x 3/16 Ndle 3 (three) times daily as directed. 2 Active pramipexole (MIRAPEX) 0.125 MG tablet Take 0.125 mg by mouth nightly. 2 Active omeprazole (PriLOSEC) 40 MG capsule Take 40 mg by mouth. Active metFORMIN (GLUCOPHAGE) 1000 MG tablet Take 1,000 mg by mouth. Active lisinopriL (PRINIVIL,ZEST RIL) 10 MG tablet Take 20 mg by mouth nightly. 2 Active Linzess 145 mcg Cap Take 145 mcg by mouth daily. 2 Active Barb Motley U-300 Insulin 300 unit/mL (1.5 mL) syringe Inject 55 Units subcutaneously 2 (two) times daily. 2 Active aspirin 81 MG EC tablet Take 1 tablet by mouth daily. Active pravastatin (PRAVACHOL) 40 MG tablet Take 40 mg by mouth. Active prednisoLONE acetate (PRED FORTE) 1 % ophthalmic suspension 1 drop. Active rosuvastatin (CRESTOR) 20 MG tablet Take 20 mg by mouth daily. 2 Active tamsulosin (FLOMAX) 0.4 mg Cap 24 hr capsule Take 1 capsule by mouth nightly. Active traMADoL (ULTRAM) 50 mg tablet Take 50 mg by mouth 3 (three) times daily. 2 Active dulaglutide 0.75 mg/0.5 mL PnIj Inject subcutaneously. Active Social History Tobacco Use Types Packs/Day Years Used Date Smoking Tobacco: Never Smokeless Tobacco: Never Alcohol Use Standard Drinks/Week Comments Not Currently 0 (1 standard drink = 0.6 oz pur e alcohol) Interpersonal Safety Answer Date Record ed Family or friends hurt you Not on file 05/01 Family or friends insult you Not on file Family or friends threaten you Not on file 0 05/01/2023 Family or friends scream or curse at you Not on file 05/01/2023 Housing Stability Answer Date Recorded Living situation today Not on file 4 Living situation problems Not on file 2023 Food Insecurity Answer Date Recorded Food run out past 12 months Not on file 04/13 Food did not last past 12 months Not on file 05/01/2023 Employment Answer Date Recorded Help finding and keeping a job Not on file 0 05/01/2023 Family and Community Support Answer Wilfrid e Recorded Help with Day to Day Activities Not on file 05/01/2023 Feeling Lonely or Isolated Not on file 05/01 Educational Attainment Answer Date Cole rded Speak language other than Cook Islander at home Not on file 05/01/2023 Want help with school or training Not on file 05/01/2023 Depression Answer Date Recorded PHQ-2 Risk Not on file 05/01/2023 Disabilities Answer Date Recorded Difficulty concentrating Not on file 024 Difficulty doing errands alone Not on file 0 05/01/2023 Substance Use Answer Date Recorded Used prescription meds for non-medical reasons N ot on file 05/01/2023 Used illegal drugs past 12 months Not on file 05/01/2023 Sex and Gender Information Value Date Recorded Sex Assigned at Not on file Legal Sex Male 7:27 PM CDT Gender Identity Not on file Sexual Orientation Not on file Last Filed Vital Signs Vital Sign Reading Time Taken Comments Blood Pressure 154/74 03/20/2022 1:18 PM EST Pulse 80 03/20/2022 2:04 PM EST Temperature 36.7 C (98.1 F) 03/20/2022 1:18 PM EST Respiratory Rate 18 03/20/2022 2:04 PM EST Oxygen Saturation 95% 03/20/2022 2:04 PM EST Inhaled Oxygen Concentration - - Weight 72.6 kg (160 lb) 03/20/2022 1:18 PM EST Height 172.7 cm (5' 8 ) 03/20/2022 1:18 PM EST Body Mass Index 24.33 03/20/2022 1:18 PM EST Plan of Treatment Health Maintenance Due Date Last Done Comments CT Colonography 1951 Colonoscopy 1951 Colorectal Cancer Screening 1951 FOBT/FIT 1951 Fit-DNA (Cologuard) 1950 Sigmoidoscopy 1951 Depression Screening (12+) 1963 Hepatitis C Screening 1969 DTAP/TDAP/TD VACCINES (1 - Tdap) 1970 Pneumococcal 50+ years (1 of 1 - PCV) 2001 Shingles Vaccine (Zoster) (1 of 2) 2001 Tobacco Cessation Counseling and Screening (12+) 03/2003/20/2022 COVID-19 VACCINE ( - season) 2023 Falls Risk Screening 04/13/2024 Influenza Vaccine (Season Ended) 2024 Respiratory Syncytial Virus (RSV) Adult or (1 - 1-dose 75+ series) 2026
--- OUTSIDE RECORDS SUMMARY | 2024-09-29 19:28 | XMS_ITS | Referral Summary ---
Author Organization [facility] Address [address] [place] [address] Care Team Providers Care Balancing Machine Set Up Worker Name Role Phone Unavailable Primary Care Provider [...] Date Cole rded Speak language other than Vincent[place] at home Not on file 05/01/2023 Want [...] 03/20/2022 1:18 PM EST Plan of Treatment Not on file
--- OUTSIDE RECORDS SUMMARY | 2024-09-29 19:28 | XMS_ITS | Encounter Summary ---
Author Organization Healthcare Address [address] [place] [address] Care Team Providers Care Magneto Electrician Name Role Phone Sudheer Mora MD Primary Care Provider [phone] Encounter Details Date Type Department Care Team (Late st Contact Info) Description 06/01/2021 Community [facility] [address] [place] [address] Vernon Manuel Right lower quadrant abdominal mass (Primary Dx) Social History Tobacco Use Types Packs/Day Years Used Date Smoking Tobacco: Never Assessed Sex and Gender Information Value Date Recorded Sex Assigned at Not on file Legal Sex Male 9:10 PM EDT Gender Identity Not on file Sexual Orientation Not on file documented as of this encounter Plan of Treatment Not on file documented as of this encounter Visit Diagnoses Diagnosis Right lower quadrant abdominal mass- Primary Abdominal or pelvic swelling, mass, or lump, right lower quadrant documented in this encounter Care Teams Magneto Electrician Relationship Specialty Start Date End Date Sudheer Mora MD [address] [place] [place] [address] PCP - General 08/24/20 documented as of this encounter
[2024-09-29 19:30] VITALS: BP 131/64; PULSE 74; O2SAT 98
--- NOTE | 2024-09-29 19:31 | PC.NURSE ---
pt reports to taking tramadol at home after the fall and is worried about taking the Oxy. Medication returned at the request of the patient, made aware to let staff know if the other meds did not help his pain.
--- NOTE | 2024-09-29 19:43 | ED_ITS ---
Discharge Plan Disposition Patient Disposition: Home, Self-Care Prescriptions Prescriptions: New ibuprofen 800 mg tablet 800 mg PO Q8H PRN (Reason: pain and swelling) Qty: 12 0RF No Action aspirin [Adult Low Dose Aspirin] 81 mg tablet,delayed release (DR/EC) 81 mg PO DAILY hydrochlorothiazide 25 mg tablet 25 mg PO DAILY Toujeo SoloStar U-300 Insulin 300 unit/mL (1.5 mL) insulin pen 40 unit SQ BID hydralazine 25 mg tablet 25 mg PO BID carvedilol [Coreg] 25 mg tablet 12.5 mg PO BID Novolog FlexPen U-100 Insulin 100 unit/mL (3 mL) insulin pen 40 unit SQ TID tramadol 50 mg tablet 50 mg PO Q8H PRN (Reason: pain) amlodipine 10 mg tablet 10 mg PO DAILY Qty: 90 1RF lisinopril 10 MG tablet 10 mg PO DAILY rosuvastatin 20 mg tablet 20 mg PO DAILY Rx Instructions: TAKE ONE TABLET BY MOUTH EVERY DAY clopidogrel 75 MG tablet 75 mg PO DAILY Referrals Follow up/Referrals: Alice Mora MD [Primary Care Provider, Medical] - See instructions Alvarez Zuniga DO [Staff Physician, Orthopedics] - See instructions Activity Restrictions/Add. Instructions Additional Instructions/Restrictions: At this time it was felt you are safe to be discharged home. If new or worsening symptoms please do not hesitate to return the emergency department. Please call schedule appoint with Dr. Zuniga as soon as you are able. Clinical Impressions Clinical Impression: Carpal bone fracture Print Language Print Language: [place] Discharge ED Provider: Favian Acosta General Adult HPI General Chief complaint: Fall Stated complaint: AO 09/29/24 1600 Left wrist injury Time Seen by Provider: 09/29/24 19:13 Mode of Arrival: Ambulatory Source of Information: Patient and Spouse Description of Symptoms (Recalled from ER Triage Doc. 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 Pt reports to reaching out to catch himself resulting in the injury to his wrist. Pt denies any other injuries at this time. Pt does take Plavix. Pt presents with CMS intact. Radial pulse palpable. History of Present Illness HPI narrative: Patient is 74-year-old male with no pertinent past medical history presents emergency department for evaluation of traumatic injury sustained in a fall on an outstretched left hand. Patient is left-handed had a mechanical fall did not strike his head or lose conscious no other trauma complaining of pain at the left wrist. No other acute complaints at this time. Related Data Home Medications ?Medication ?Instructions ?Recorded ?Confirmed aspirin 81 mg tablet,delayed 81 mg PO DAILY HEART HEAL TH 03/17/18 09/29/24 release (Adult Low Dose Aspirin) hydrochlorothiazide 25 mg tablet 25 mg PO DAILY diuret ic 03/17/18 09/29/24 insulin glargine U-300 conc 300 40 unit SQ BID Diabete s 03/17/18 09/29/24 unit/mL (1.5 mL) subcutaneous pen (Toujeo SoloStar U-300 Insulin) carvedilol 25 mg tablet (Coreg) 12.5 mg PO BID BLOOD P RESSURE 10/25/18 09/29/24 hydralazine 25 mg tablet 25 mg PO BID BLOOD PRESSURE 10/25/18 09/29/24 insulin aspart U-100 100 unit/mL 40 unit SQ TID Diabet es 10/25/18 09/29/24 (3 mL) subcutaneous pen (Novolog FlexPen U-100 Insulin aspart) lisinopril 10 mg tablet 10 mg PO DAILY BLOOD PRESSUR E 11/10/18 09/29/24 clopidogrel 75 mg tablet 75 mg PO DAILY Blood thinner 03/12/20 09/29/24 tramadol 50 mg tablet 50 mg PO Q8H PRN pain 09/29/24 rosuvastatin 20 mg tablet 20 mg PO DAILY Cholesterol 0 12/29/23 09/29/24 Previous Rx's ?Medication ?Instructions ?Recorded amlodipine 10 mg tablet 10 mg PO DAILY High blood pr essure 01/09/23 #90 tabs ibuprofen 800 mg tablet 800 mg PO Q8H PRN pain and 0 09/29/24 swelling #12 tabs Allergies Allergy/AdvReac Type Severity Reaction Status Date / Time propoxyphene (From DARVON) Allergy Unknown I-HIVES Verified 01/01/24 06:52 [facility] Disclaimer: The information contained in this section may have been updated after the patient was seen, as this information can be updated by other users. Medical History Colonoscopy planned Kidney stone Diabetes mellitus, type 2 Unstable angina Dyspnea Diabetes HLD (hyperlipidemia) HHD (hypertensive heart disease) Palpitations CAD (coronary artery disease) Atrial fibrillation Bradycardia Surgical History History of knee replacement History of back surgery H/O hernia repair Family History Other Family history of diabetes mellitus type I No significant family history Social History Smoking Status: Never smoker second hand exposure: No alcohol intake: never substance use type: denies use current occupational status: retired Travel in the last 8 weeks?: Inside the [place] household members: spouse housing: house current occupational exposures/hazards: No caffeine: Yes Have you lived/traveled outside US in past 30 days?: No Contact w/someone who lives/traveled outside US past 30 days?: No Exposure to someone with infectious disease in past 14 days?: No Do you have a fever (greater than 100.4 F or 38 C)?: No Have you tested positive for COVID-19?: No Exposed to someone with COVID-19 in past 14 days?: No Do you have a sore throat?: No Do you have a cough?: No Do you have any weakness?: No Do you have any diarrhea?: No Are you experiencing any unusual bleeding?: No Do you have any muscle aches/pain?: No Do you have any abdominal pain?: No Are you experiencing loss of taste or smell?: No Other Medical History Have you received the Flu Vaccine for this season: Yes Have you received the Pneumonia Vaccine: Yes ROS Obtained: Yes Systems reviewed as appropriate & no additional complaints except as documented Physical Exam General General appearance: alert Comment: Appearing uncomfortable in bed Head Head exam: atraumatic and normocephalic Eye Eye exam: Present PERRL and EOMI ENT ENT exam: Present mucous membranes moist Neck Neck exam: Present normal inspection Chest Chest inspection: Present normal inspection and symmetric chest wall rise Respiratory Respiratory exam: Absent respiratory distress Cardiovascular Cardiovascular exam: Present regular rate and normal rhythm Extremities Exam Extremities exam: Present other (Swelling and tenderness over the left wrist. Palpable left radial pulse. Distally neurovascularly intact. No tenderness over the proximal forearm or elbow.) Neurological Exam Neurological exam: Present alert Psychiatric Psychiatric exam: Present normal affect Skin Skin exam: Present warm and dry Medical Decision Making Medical Records Screening: Per USPSTF and CDC recommendations, given the prevalence of disease in our region, it is our hospital?s policy to screen for HIV and viral Hepatitis for all patients aged 18 and over and those with ongoing risk factors. Parker Inquiry Pt receiving controlled substance: No Vital Signs: 09/29/24 19:18 09/29/24 19:30 09/29/24 20:00 Temperature 98.2 F Temperature Source Oral Pulse Rate 74 76 Pulse Rate [Radial] 74 Respiratory Rate 16 16 Blood Pressure 131/64 142/69 H Blood Pressure [Right Arm] 158/75 H Blood Pressure Mean 94 100 Blood Pressure Mean [Right Arm] 102 Blood Pressure Position [Right Arm] Sitting 02 Sat by Pulse Oximetry 95 98 97 Oxygen Delivery Method Room Air Orders (Tests/Meds): ED MEDICATIONS Discontinued Medications Generic Name Dose Route Start Last Admin Trade Name Lakshmi PRN Reason Stop Dose Admin Acetaminophen 1,000 mg 09/29/24 19:20 09/29/24 19:27 Acetaminophen 500mg Tab PO 09/29/24 19:21 1,000 mg ONCE ONE Administration Ibuprofen 600 mg 09/29/24 19:20 09/29/24 19:27 Ibuprofen 600 Mg Tablet PO 09/29/24 19:21 600 mg ONCE ONE Administration Oxycodone HCl 5 mg 09/29/24 19:20 09/29/24 19:30 Oxycodone 5mg Immediate Release Tablet PO 09/29/24 19:21 Not Given ONCE ONE ORDERS Category Date Time Status Forearm XR left 2 views [XR forearm LT 2V] Stat Exams 09/29/24 19:20 Completed Wrist XR left minimum 3 views [XR wrist LT min 3V] Stat Exams 09/29/24 19:20 Completed Medical Decision Narrative: In summary patient is 74-year-old male with past medical history described above presents emergency department for evaluation traumatic injury sustained in a fall on outstretched right hand. Patient is hemodynamically stable nontoxic- appearing but normal, afebrile. Differential diagnosis includes fracture, musculoskeletal strain, hematoma, among others. Workup we conducted a plain film of the left wrist. Initial inventions include multimodal pain control. X- ray informally interpreted by me no acute significantly displaced fracture of the radius or ulna. Formal read shows no acute findings in the forearm, soft tissue swelling posterior to the carpal bones with potential avulsion fracture posteriorly arising off the carpal bones of uncertain donor site. Given this patient was placed in cock up wrist splint will follow-up with Dr. Zuniga for repeat evaluation. Critical Care Critical Care Time Critical Care Time: No
[2024-09-29 20:00] VITALS: BP 142/69; PULSE 76; RESP 16; O2SAT 97
[2024-09-29 20:43] VITALS: BP 142/69; PULSE 76; RESP 16; TEMP 36.6; O2SAT 97
== END 2024-09-29 20:45 | disposition home or self-care (01) ==
PROVIDERS: Emergency Provider Emergency Medicine; PCP Family Medicine
DX: S62.102A Fracture of unspecified carpal bone, left wrist, initial encounter for closed fracture (principal); W18.30XA Fall on same level, unspecified, initial encounter
CPT/HCPCS: 73090; 73110; 99284

== ENCOUNTER 2024-12-21 13:13 | Outpatient (CLI) | payer MEDICARE, SELFPAY ==
--- OUTSIDE RECORDS SUMMARY | 2024-09-19 11:30 | XMS_ITS ---
Author Organization [facility] Address [address] [facility] [address] [place] [phone] Care Team Providers Care Ballet Company Member Name Role Phone Johnnie Mora Primary Care Provider Gómez Syed Unavailable [phone] Allergies Allergen (clinical drug ingredient) Drug/Non Drug [...] Interpretation:Normal Performing Lab: Notes/Report: Test performed by [facility] [address] [place] [address] , [address], [place] [address] Sage Joshi MD, Paperhanger And Painter CLIA: [id number] Creatine Kinase 58 20-200 U/L P-Arthritis Panel, [employer] Reviewed date:09/20/2024 04:36:02 PM Interpretation:ESR 23 Performing Lab: Notes/Report: Test performed by [facility] [address] [place] [address] , [address], [place] [address] Sage Joshi MD, Paperhanger And Painter CLIA: [id number] Erythrocyte Sedimentation Rate (ESR), Automated 23 <21 mm/hr Rheumatoid Factor 11.0 <14.1 IU/mL C-Reactive Protein (CRP) 0.33 <0.50 mg/dL Antinuclear Antibodies (AYLEEN) Screen, Reflex AYLEEN 9 Panel Negative Negative This test is performed by Multiplex Bead Immunoassay methodology. Antinuclear Antibodies (AYLEEN) Result Note SEE COMMENT For positive Autoantibodies, please refer to the interpretive chart here: [email or web address] CCP Antibodies <0.5 <0.5-3.0 U/mL P-TSH reflex to FT4 Reviewed date:09/20/2024 04:36:02 PM Interpretation:Normal Performing Lab: Notes/Report: Test performed by [facility] [address], [place] [address] Sage Joshi MD, Paperhanger And Painter CLIA: [id number] TSH reflex to FT4 1.69 0.43-5.25 mU/L REASON FOR VISIT joint pain Medications Medication SIG (Take, Route, Frequency, Duration) Notes Start Date End Date Status Ezetimibe 10 MG 1 tablet Orally Once a day; Duration: 30 days 08/26/2024 Active metFORMIN HCl 500 MG 1 tablet Orally Onc e a day; Duration: 90 days 08/12/2024 Active dexAMETHasone 4 MG 1 tablet Orally twic e a day; Duration: 5 days 09/19/2024 Active Zithromax Z-Arturo 250 MG as directed Orall y daily; Duration: 5 days 09/19/2024 Active NovoLOG FlexPen 100 UNIT/ML INJECT 40 UN ITS SUBCUTANEOUSLY THREE TIMES DAILY BEFORE MEAL(S); Duration: 88 Active traMADol HCl 50 MG 1 tab(s) orally thre e times a day as needed; Duration: 30 days 08/12/2024 Active hydroCHLOROthiazide 25 mg 1 tab(s) Orall y Once a day; Duration: 90 days Active Clopidogrel Bisulfate 75 mg 1 tablet Ora lly Once a day; Duration: 90 days Active hydrALAZINE HCl 25 mg 1 tab(s) Orally Tw ice a day; Duration: 90 days Active amLODIPine Besylate 10 MG 1 tab(s) Orall y once a day; Duration: 90 days Active Carvedilol 25 mg 1 tab(s) Orally Twic e a day; Duration: 90 days Active Lisinopril 10 mg 1 tablet Orally Once a day; Duration: 90 days Active Rosuvastatin Calcium 20 MG 1 tab(s) oral ly once a day; Duration: 90 days Active Finasteride 5 mg TAKE ONE TABLET BY M OUTH EVERY DAY; Duration: 90 days Active Linzess 290 MCG 1 cap(s) orally once a day; Duration: 90 days 2022 Active Toujeo SoloStar 300 [...] 09/19/2024 Encounters Encounter Location Date Provider Diagnosis [facility] [address] [facility] [address] [place], [place] [phone] 09/19/2024 Gómez Muir Myalgia, multiple si jasmyn M79.18 ; Polyarthralgia [...] MG 1 tablet Orally twic e a day; Duration: 5 days 09/19/2024 Zithromax Z-Arturo 250 MG as directed Orall y daily; Duration: 5 days 09/19/2024 Next Appt Details Follow Up: via phone to repo rt test results, Reason: Provider Name:Johnnie Ritchie er, 02/10/2025 11:30:00 AM, [address], [address], [place], [phone], Progress Notes * Kory RAZOOB:1950 (74 yo M)Acc No.[id number]:09/19/2024 Progress Notes Patient: Apollo BYNUM Provider: Eamon Syed M.D. :1950 A ge:74 Y S ex:Male Date:09/19/2024 Address:[facility] [place] [id number] Pcp:Johnnie Mora Subjective: * Chief Complaints: * [...] about 2 days after he completed a [employer] cruise. * ROS: D ERMATOLOGY: no R [...] pacer. Cath 02/01/18 with stent, Dr. Sellers, [facility], macular degeneration see 04/28/[address] Guardado. Referral to Dr. Orr, Colon polyps. * Surgical History: H syl 5 surgeries, 2 R, 2 L (inguinal) and 1 umbilical , RT knee , RT eye orbital surgery , 3 Kidney stone procedures , Heart Cath with stent placement X 3 02/2010, Heart Cath with stent placement x1 12/30/2010, Heart Cath, Dr. Ling 02/08/2015, Endoscopy right knee, Dr. Riley, [place] 01/2015, Colonoscopy , Colonoscopy, Dr. Camilo , Temporary Pacemaker placement - [facility] Dr Sellers 01/2018, Heart Cath and 3 stents-[facility]-Dr Ling 10/2018, Back Surgery at [facility] 09/10/2021, LT Meniscus Tear Repair 09/18/2023, Colonoscopy, Dr. Camilo, 3 polyps 01/02/24. * Hospitalization/Major Diagno stic Procedure: S andrea Hernandez- Left Heart Catherization 12/10/2010, [facility] ER- Eye Injury 02/08/2012, ER- Eye Injury 02/08/2012, [facility] 04/13/2014, [facility] - Hypotension, Hyperkalemia, a-fib with rapid response 01/21-, [facility] ER-chest pain 10/2018, [facility] ER-abdominal pain 11/10/2018. * Family History: F [...] stands and moves slowly due to pain. E yes: P ERRLA, sclera clear. O ral cavity : e rythema without exudate on pharynx. H eart : R RR, normal S1 S2. L ungs: c lear to auscultation bilaterally. E xtremities : n o edema. S kin : c lear without rashes. Assessment: * Assessment: 1. M yalgia, multiple sites - M79.18 (Primary) 2 . P olyarthralgia - M25.50? 3. N dalia congestion - R09.81 4 . B RI 26.0-26.9,adult - Z68.26 Plan: * Treatment: Value [...] G 2211 Complex e/[place], [address] CBC WITH AUTO DIFF, 24569 VENIPUNCT, ROUTINE*, 1036F TOBACCO NON-USER, G8420 BMI<30 AND >=22 CALC & DOCU * Follow Up: v ia phone to report test results * Images: Billing Information: * Visit Code: 34707 Office Visit, Est Pt., Level 4. * Procedure Codes: G2211 Complex e/[place]. [address] CBC WITH AUTO DIFF. 71039 VENIPUNCT, ROUTINE*. 1036F TOBACCO NON-USER. G8420 BMI<30 AND >=22 CALC & DOCU. * Electronic signature of Alba Syed MD on 12/21/2024 at 01:21 PM EDT Sign off status: Pending * Provider: Eamon Syed M.D. Date: 0 09/19/2024 Generated for Kristen jesus/Ok/Vijayitting on: 0 12/21/2024 01:21 PM EDT History and Physical Notes * [...] about 2 days after he completed a [employer] cruise Examination Category Sub-Category Detail Notes Category Not es ENT/Respiratory Oral cavity : erythema without exudate on pharynx Heart : RRR, normal S1 S2 Lungs: clear to auscultatio n bilaterally Extremities : no edema General Appearance: NAD, stands and move s slowly due to pain Skin : clear without rashes Eyes: PERRLA, sclera clear
--- OUTSIDE RECORDS SUMMARY | 2024-10-28 07:45 | XMS_ITS ---
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 Name Role Phone Johnnie Mora Primary Care Provider Allergies Allergen (clinical drug ingredient) Drug/Non Drug Allergy documented on EMR Reaction Allergy Type Onset Date Status propoxyphene Propoxyphene hives Drug Allergy A ctive Results Component Value Reference Range Notes P-Uric Acid Reviewed date:11/01/2024 03:37:14 PM Interpretation:Normal Performing Lab: Notes/Report: Test performed by [facility], [address] , [address], [place] [address] Sage Joshi MD, Plumber Supervisor CLIA: [id number] Uric Acid 5.2 3.4-8.0 mg/dL REASON FOR VISIT 2 months, Needs labs, AAA screening, & diabetic eye exam Medications Medication SIG (Take, Route, Frequency, Duration) Notes Start Date End Date Status Carvedilol 25 mg 1 tab(s) Orally Twic e a day; Duration: 90 days Active Lisinopril 10 mg 1 tablet Orally Once a day; Duration: 90 days Active Linzess 290 MCG 1 cap(s) orally once a day; Duration: 90 days 2022 Active Aspirin 81 MG 1 tab(s) orally once a day Active Rosuvastatin Calcium 20 MG 1 tab(s) oral ly once a day; Duration: 90 days Active Jardiance 25 MG Take 1 tablet by once daily; Duration: 90 Active Meloxicam 15 MG 1 tablet Orally Once a day; Duration: 30 day(s) 10/28/2024 Active Eye Vitamins - as directed Orally t wice a day AREDS Active DULoxetine HCl 30 MG 1 capsule Orally On ce a day; Duration: 30 days 10/28/2024 Active Finasteride 5 MG Take 1 tablet by josé miguel th once daily; Duration: 90 Active Toujeo SoloStar 300 UNIT/ML INJECT 60 UN ITS SUBCUTANEOUSLY IN THE MORNING AND 55 UNITS IN THE EVENING; Duration: 46 Active metFORMIN HCl 500 MG 1 tablet Orally Onc e a day; Duration: 90 days 08/12/2024 Active NovoLOG FlexPen 100 UNIT/ML INJECT 40 UN ITS SUBCUTANEOUSLY THREE TIMES DAILY BEFORE MEAL(S); Duration: 88 Active Ezetimibe 10 MG 1 tablet Orally Once a day; Duration: 30 days 08/26/2024 Active hydrALAZINE HCl 25 mg 1 tab(s) Orally Tw ice a day; Duration: 90 days Active amLODIPine Besylate 10 MG 1 tab(s) Orall y once a day; Duration: 90 days Active hydroCHLOROthiazide 25 mg 1 tab(s) Orall y Once a day; Duration: 90 days Active Clopidogrel Bisulfate 75 mg 1 tablet Ora lly Once a day; Duration: 90 days Active traMADol HCl 50 MG 1 tab(s) orally thre e times a day as needed; Duration: 30 days 08/12/2024 Active Vital Signs Blood pressure systolic 136 mm Hg 10/29/19 25 Blood pressure diastolic 80 mm Hg 025 Heart Rate 70 /min 10/28/2024 Height 68 in 10/28/2024 Weight 176.2 lbs 10/28/2024 BMI 26.79 kg/m2 10/28/2024 Encounters Encounter Location Date Provider Diagnosis [facility] [address] [place], [place] [phone] 10/28/2024 Johnnie Mora Generalized joint pa in M25.50 ; Stented coronary artery Z95.5 ; Type 2 diabetes mellitus with other specified complication E11.69 ; Insulin long-term use Z79.4 and BMI 26.0-26.9,adult Z68.26 Assessments Encounter Date Diagnosis (ICD Code) Assessment Notes Treatment Notes Treatment Clinical Notes Section Notes 10/28/2024 Generalized joint pain (ICD-10 - M25.50) 10/28/2024 Stented coronary artery (ICD-10 - Z95.5) 10/28/2024 Type 2 diabetes mellitus with other specified complication (ICD-10 - E11.69) 10/28/2024 Insulin long-term use (ICD-10 - Z79.4) 10/28/2024 BMI 26.0-26.9,adult (ICD-10 - Z68.26) Plan Of Treatment Medication Medication Name Sig Start Date Stop Date Notes Meloxicam 15 MG 1 tablet Orally Once a day; Duration: 30 day(s) 10/28/2024 DULoxetine HCl 30 MG 1 capsule Orally On ce a day; Duration: 30 days 10/28/2024 Next Appt Details Follow Up: 2 Weeks, Reason: Provider Name:Johnnie Ritchie er, 02/10/2025 11:30:00 AM, [address], [address], [place], [place], [id number], Progress Notes * Kory RAZOOB:1950 (74 yo M)Acc No.[id number]:10/28/2024 Progress Notes Patient: Apollo BYNUM Provider: Johnnie Mora M.D. :1950 A ge:74 Y S ex:Male Date:10/28/2024 Address:[address] [place] [address] [id number] Subjective: * Chief Complaints: * 1 . 2 months. 2. Needs labs, AAA screening, & diabetic eye exam. * HPI: C ardiology: The patient is here for a check up on Hypertension, Hyperlipidemia, and Diabetes. Pt is not fasting. Every joint in my body is killing me. ESR 23, but all other recent labs WNL, AYLEEN and Rheum. P ain: Pt states he is having joint pain all the time. Pt states he does not sleep at all. P sychology: 75 yo brother just from Parkinson's disease. * ROS: D ERMATOLOGY: no R katrina. [...] pacer. Cath 02/01/18 with stent, Dr. Sellers, [facility], macular degeneration see 04/28/[address] Guardado. Referral to Dr. Orr, Colon polyps. * Surgical History: H erncarlos 5 surgeries, 2 R, 2 L (inguinal) and 1 umbilical , RT knee , RT eye orbital surgery , 3 Kidney stone procedures , Heart Cath with stent placement X 3 02/2010, Heart Cath with stent placement x1 12/30/2010, Heart Cath, Dr. Ling 02/08/2015, Endoscopy right knee, Dr. Riley, [place] 01/2015, Colonoscopy , Colonoscopy, Dr. Camilo , Temporary Pacemaker placement - [facility] Dr Sellers 01/2018, Heart Cath and 3 stents[facility]-Dr Ling 10/2018, Back Surgery at [facility] 09/10/2021, LT Meniscus Tear Repair 09/18/2023, Colonoscopy, Dr. Camilo, 3 polyps 01/02/24. * Hospitalization/Major Diagno stic Procedure: Eliana Hernandez- Left Heart Catherization 12/10/2010, [facility] ER- Eye Injury 02/08/2012, ER- Eye Injury 02/08/2012, [facility] 04/13/2014, [facility] - Hypotension, Hyperkalemia, a-fib with rapid response 01/21-, [facility] ER-chest pain 10/2018, [facility] ER-abdominal pain 11/10/2018. * Family History: F [...] tab(s) orally once a day , Taking Linzess 290 MCG Capsule 1 cap(s) orally once a day , Taking Rosuvastatin Calcium 20 MG Tablet [...] UNITS SUBCUTANEOUSLY THREE TIMES DAILY BEFORE MEAL(S) , Taking Finasteride 5 MG Tablet Take 1 tablet by mouth once daily , Taking Toujeo SoloStar 300 UNIT/ML Solution Pen-injector INJECT 60 UNITS SUBCUTANEOUSLY IN THE MORNING AND 55 UNITS IN THE EVENING , Taking Jardiance 25 MG Tablet Take 1 tablet by mouth once daily , Discontinued Zithromax Z-Arturo 250 MG Tablet as directed Orally daily , Medication List reviewed and reconciled with the patient * Allergies: P ropoxyphene: hives. Objective: * Vitals: W t: 176.2, Temp: 98.2, BP: 136/80, HR: 70, Nurse: pe, Ht: 68, BMI:26.79. * Examination: G eneral Examination: General Appearance: N AD. O ral cavity: n o lesions, mucosa moist and WNL, no erythema. N paulo: s upple, no lymphadenopathy. C hest: n ormal shape and expansion. H eart: R SR. L ungs: c lear to auscultation. A bdomen: soft and nontender, no organomegaly or masses. N eurologic Exam: I ntact, gait normal. S kin: n ormal, no rash. P eripheral pulses: n ormal . B ack: scar of the low back. E xtremities: n o leg edema, some osteoarthritic changes of the knees, but not with severe deformity. Assessment: * Assessment: 1. G eneralized joint pain - M25.50 2 . S tented coronary artery - Z95.5? 3. T ype 2 diabetes mellitus with other specified complication - E11.69 ? 4 . I nsulin long-term use - Z79.4 5 . B RI 26.0-26.9,adult - Z68.26? Plan: * Treatment: Value Reference Range U karon Acid 5.2 3.4-8.0 - mg/dL * Jena Farah Lisa 11/01/2024 03 :35:31 PM EDT > Patient informed of normal results. * Procedure Codes: G 2211 Complex e/m visit add on, G8420 BMI<30 AND >=22 CALC & DOCU, 1036F TOBACCO NON-USER, G8783 BP SCR PRFRM RCMDD DEFIND SCR INTVL, G8752 MOST RECENT SYSTOLIC BP < 140MM HG, G8754 MOST RECENT DIASTOLIC BP < 90MM HG * Follow Up: 2 Weeks * Images: Billing Information: * Visit Code: 31407 Office Visit, Est Pt., Level 4. * Procedure Codes: G2211 Complex e/m visit add on. G8420 BMI<30 AND >=22 CALC & DOCU. 1036F TOBACCO NON-USER. G8783 BP SCR PRFRM RCMDD DEFIND SCR INTVL. G8752 MOST RECENT SYSTOLIC BP < 140MM HG. G8754 MOST RECENT DIASTOLIC BP < 90MM HG. * Electronic signature of Johnnie Mora MD on 12/21/2024 at 01:20 PM EDT Sign off status: Pending * Provider: Johnnie Mora M.D. Date: 0 10/28/2024 Generated for Kristen jesus/Ok/Vijayitting on: 0 12/21/2024 01:20 PM EDT History and Physical Notes * HPI (History of Present Illness) Category Sub-Category Detail Notes Category Not es Psychology 75 yo brother johnnie rashid from Parkinson's disease. Examination Category Sub-Category Detail Notes Category Not es General Examination HEENT: Heart: RSR Lungs: clear to auscultatio n Abdomen: soft [...] normal Back: scar of the low back Chest: normal shape and exp ansion
--- OUTSIDE RECORDS SUMMARY | 2024-11-10 11:00 | XMS_ITS ---
[facility] Address [address] [facility] [address] [place] [id number] Care Team Providers Care Hogshead Wrecker Name Role Phone Johnnie Mora Primary Care Provider Allergies Allergen (clinical drug ingredient) Drug/Non Drug Allergy documented on EMR Reaction Allergy Type Onset Date Status propoxyphene Propoxyphene hives Drug Allergy A ctive REASON FOR VISIT joint pain Medications Medication SIG (Take, Route, Frequency, Duration) Notes Start Date End Date Status metFORMIN HCl 500 MG 1 tablet Orally Onc e a day; Duration: 90 days 08/12/2024 Active traMADol HCl 50 MG 1 tab(s) orally thre e times a day as needed; Duration: 30 days 08/12/2024 Active Toujeo SoloStar 300 UNIT/ML INJECT 60 UN ITS SUBCUTANEOUSLY IN THE MORNING AND 55 UNITS IN THE EVENING; Duration: 46 Active Ezetimibe 10 MG 1 tablet Orally Once a day; Duration: 30 days 08/26/2024 Active NovoLOG FlexPen 100 UNIT/ML INJECT 40 UN ITS SUBCUTANEOUSLY THREE TIMES DAILY BEFORE MEAL(S); Duration: 88 Active hydroCHLOROthiazide 25 mg 1 tab(s) Orall y Once a day; Duration: 90 days Active hydrALAZINE HCl 25 mg 1 tab(s) Orally Tw ice a day; Duration: 90 days Active Clopidogrel Bisulfate 75 mg 1 tablet Ora lly Once a day; Duration: 90 days Active Carvedilol 25 mg 1 tab(s) Orally Twic e a day; Duration: 90 days Active amLODIPine Besylate 10 MG 1 tab(s) Orall y once a day; Duration: 90 days Active Eye Vitamins - as directed Orally t wice a day AREDS Active Aspirin 81 MG 1 tab(s) orally once a day Active Rosuvastatin Calcium 20 MG 1 tab(s) oral ly once a day; Duration: 90 days Active Lisinopril 10 mg 1 tablet Orally Once a day; Duration: 90 days Active Linzess 290 MCG 1 cap(s) orally once a day; Duration: 90 days 2022 Active Finasteride 5 MG Take 1 tablet by josé miguel once daily; Duration: 90 Active Meloxicam 15 MG 1 tablet Orally Once a day; Duration: 30 day(s) 10/28/2024 Active DULoxetine HCl 30 MG 1 capsule Orally On ce a day; Duration: 30 days 10/28/2024 Active Jardiance 25 MG Take 1 tablet by josé miguel once daily; Duration: 90 Active Vital Signs Blood pressure systolic 130 mm Hg 11/11/19 25 Blood pressure diastolic 70 mm Hg 025 Heart Rate 67 /min 11/10/2024 Height 68 in 11/10/2024 Weight 177.4 lbs 11/10/2024 BMI 26.97 kg/m2 11/10/2024 Encounters Encounter Location Date Provider Diagnosis [facility] [address], [place] [id number] 11/10/2024 Johnnie Mora Type 2 diabetes mellitus with other specified complication E11.69 ; Insulin long-term use Z79.4 ; Multiple joint pain M25.50 and BMI 26.0-26.9,adult Z68.26 Assessments Encounter Date Diagnosis (ICD Code) Assessment Notes Treatment Notes Treatment Clinical Notes Section Notes 11/10/2024 Type 2 diabetes mellitus with other specified complication (ICD-10 - E11.69) continue current therapy 11/10/2024 Insulin long-term use (ICD-10 - Z79.4) 11/10/2024 Multiple joint pain (ICD-10 - M25.50) 11/10/2024 BMI 26.0-26.9,adult (ICD-10 - Z68.26) Plan Of Treatment Treatment Notes Assessment Notes Type 2 diabetes mellitus with other spec ified complication continue current therapy Next Appt Details Follow Up: 3 Months, Reason: Provider Name:Johnnie Ritchie er, 02/10/2025 11:30:00 AM, [address], [address], [place], [phone], Progress Notes * Kory RAZOOB:1950 (74 yo M)Acc No.[id number]:11/10/2024 Progress Notes Patient: Apollo BYNUM Provider: Johnnie Mora M.D. :1950 A ge:74 Y S ex:Male Date:11/10/2024 Address:[address] [id number] Subjective: * Chief Complaints: * 1 . Joint pain. * HPI: P ain: The pt is here today with c/o continued pain in his joints and muscles. Pt states he did stop the cholesterol medication without much relief. Pt states he did stop the Carvedilol for a few days and did have some relief, but his BP went up, so he went back on once a day and started to have the pain again. Pt states he tried taking a half tablet twice a day, but his BP was still elevated, so he has gone back to one tablet twice a day. * ROS: D ERMATOLOGY: no R katrina. [...] pacer. Cath 02/01/18 with stent, Dr. Sellers, [facility], macular degeneration see 04/28/[address] Guardado. Referral to Dr. Orr, Colon polyps. * Surgical History: Dre streeter 5 surgeries, 2 R, 2 L (inguinal) and 1 umbilical , RT knee , RT eye orbital surgery , 3 Kidney stone procedures , Heart Cath with stent placement X 3 02/2010, Heart Cath with stent placement x1 12/30/2010, Heart Cath, Dr. Ling 02/08/2015, Endoscopy right knee, Dr. Riley, [facility] 01/2015, Colonoscopy , Colonoscopy, Dr. Camilo , Temporary Pacemaker placement - [facility] Dr Sellers 01/2018, Heart Cath and 3 stents-[facility] Ling 10/2018, Back Surgery at [facility] 09/10/2021, LT Meniscus Tear Repair 09/18/2023, Colonoscopy, Dr. Camilo, 3 polyps 01/02/24. * Hospitalization/Major Diagno stic Procedure: S andrea Hernandez- Left Heart Catherization 12/10/2010, [facility] ER- Eye Injury 02/08/2012, ER- Eye Injury 02/08/2012, [facility] 04/13/2014, [facility] - Hypotension, Hyperkalemia, a-fib with rapid response 01/21-, [facility] ER-chest pain 10/2018, [facility] ER-abdominal pain 11/10/2018. * Family History: F [...] THREE TIMES DAILY BEFORE MEAL(S) , Taking Toujeo SoloStar 300 UNIT/ML Solution Pen-injector INJECT 60 UNITS SUBCUTANEOUSLY IN THE MORNING AND 55 UNITS IN THE EVENING , Taking Jardiance 25 MG Tablet Take 1 tablet by mouth once daily , Taking Meloxicam 15 MG Tablet 1 tablet Orally Once a day , Taking DULoxetine HCl 30 MG Capsule Delayed Release Particles 1 capsule Orally Once a day , Taking Finasteride 5 MG Tablet Take 1 tablet by mouth once daily * Allergies: P ropoxyphene: hives. Objective: * Vitals: W t: 177.4, Temp: 98.3, BP: 130/70, HR: 67, Nurse: CIRO, Ht: 68, BMI:26.97. * Examination: G eneral Examination: General Appearance: [...] with severe deformity. Assessment: * Assessment: 1. T ype 2 diabetes mellitus with other specified complication - E11.69 (Primary) ?2. I nsulin long-term use - Z79.4 3 . M ultiple joint pain - M25.50 4 . B [place] 26.0-26.9,adult - Z68.26 Plan: * Treatment: * Procedure Codes: G 2211 Complex e/m visit add on, 1036F TOBACCO NON-USER, G8420 BMI<30 AND >=22 CALC & DOCU, 3046F HEMOGLOBIN A1C LEVEL > 9.0%, G8783 BP SCR PRFRM RCMDD DEFIND SCR INTVL, G8752 MOST RECENT SYSTOLIC BP < 140MM HG, G8754 MOST RECENT DIASTOLIC BP < 90MM HG, 3017F COLORECTAL CA SCREEN DOC REV * Preventive Medicine: Screening / Special Tests: C olonoscopy c olonoscopy 01/01/[address] Camilo, see pathology. * Follow Up: 3 Months * Images: Billing Information: * Visit Code: 84739 Office Visit, Est Pt., Level 3. * Procedure Codes: G2211 Complex e/m visit add on. 1036F TOBACCO NON-USER. G8420 BMI<30 AND >=22 CALC & DOCU. 3046F HEMOGLOBIN A1C LEVEL > 9.0%. G8783 BP SCR PRFRM RCMDD DEFIND SCR INTVL. G8752 MOST RECENT SYSTOLIC BP < 140MM HG. G8754 MOST RECENT DIASTOLIC BP < 90MM HG. 3017F COLORECTAL CA SCREEN DOC REV. * Electronic signature of Johnnie Mora MD on 12/21/2024 at 01:20 PM EDT Sign off status: Pending * Provider: Johnnie Mora M.D. Date: 0 11/10/2024 Generated for Kristen jesus/Ok/Vijayitting on: 0 12/21/2024 01:20 PM EDT History and Physical Notes * Examination Category Sub-Category Detail Notes Category Not [...]
--- OUTSIDE RECORDS SUMMARY | 2024-11-11 06:45 | XMS_ITS ---
Author Organization [facility] Address [address] [facility] [address] [facility] [address] [place] [id number] Care Team Providers Care Statistical Developer Name Role Phone Johnnie Mora Primary Care Provider REASON FOR VISIT 2 week f/u Encounters Encounter Location Date Provider Diagnosis [facility] [address] [facility] [address] [facility] [address] [place] [phone] 11/11/2024 Johnnie Mora Plan Of Treatment Next Appt Details Provider Name:Johnnie Ritchie er, 02/10/2025 11:30:00 AM, [address] [facility], [address], [place], [phone], Progress Notes * KATHRYNDomenicoPhillOB:1950 (74 yo M)Acc No.[id number]:11/11/2024 Patient: Apollo BYNUM Provider: Johnnie Mora M.D. :1950 A ge:74 Y S ex:Male Date:11/11/2024 Address:[address] [id number] Subjective: * Chief Complaints: * 1 . 2 week f/u. * Medical History: Objective: * Vitals: Assessment: Plan: * Treatment: * Images: Billing Information: * Visit Code: * Procedure Codes: * Electronic signature of Johnnie Mora MD on 12/21/2024 at 01:20 PM EDT Sign off status: Pending * Provider: Johnnie Mora M.D. Date: 0 11/11/2024 Generated for Kristen jesus/Ok/Sven on: 0 12/21/2024 01:20 PM EDT
--- NOTE | 2024-12-21 13:18 | XR_ITS ---
FINAL REPORT CLINICAL HISTORY: right shoulder pain COMPARISON: None FINDINGS: For views of the right shoulder were obtained. There is no fracture or dislocation. Mild degenerative changes are present. Soft tissues are unremarkable. IMPRESSION: Mild degenerative changes, with no acute osseous abnormality of the right shoulder. Reviewed, Interpreted and Dictated by Susan Story MD Transcribed by Patito Villegas Authenticated and [facility]
--- OUTSIDE RECORDS SUMMARY | 2024-12-21 13:20 | XMS_ITS | Clinical Summary ---
Author Organization [facility] Address [address] [place] [address] Care Team Providers Care Reconnaissance Man Name Role Phone Sudheer Mora MD Primary Care Provider [phone] Allergies Active Allergy Reactions Criticality Noted Date Comments Propoxyphene Hives 02/21/2020 Medications tamsulosin (FLOMAX) 0.4 MG capsule 24 hr capsule Take 1 capsule by mouth Every Night. Active omeprazole (priLOSEC) 40 MG capsule Take 40 mg by mouth Daily. Active aspirin 81 MG tablet Take 1 tablet by mouth Daily. 30 tablet 11 Active insulin aspart (novoLOG) 100 UNIT/ML injection Inject 8 Units under the skin as directed 3 times a Day With Meals and 0-9 Units as directed 4 times a Day With Meals & at Bedtime. 10 mL 12 01/25/20 18 Active Additional Information Patient taking differently: 15 UnitsSubcutaneous 3 Times Daily With Meals, Reported on 04/08/2018 prednisoLONE acetate (PRED FORTE) 1 % ophthalmic suspension 1 drop As Needed. A ctive pravastatin (PRAVACHOL) 40 MG tablet Take 40 mg by mouth Daily. Active metFORMIN (GLUCOPHAGE) 1000 MG tablet Take 1,000 mg by mouth 2 (Two) Times a Day With Meals. Active Dulaglutide (TRULICITY SC) Inject under the skin into the appropriate area as directed 1 (One) Time Per Week. Acti ve Insulin Glargine (TOUJEO SOLOSTAR) 300 UNIT/ML solution pen-injector Inject 40 Units under the skin into the appropriate area as directed Daily. Active finasteride (PROSCAR) 5 MG tablet Daily. 06/23/19 19 Active clopidogrel (PLAVIX) 75 MG tablet Take 1 tablet by mouth Daily. 90 tablet 3 07/27/19 19 Active hydrochlorothi azide (HYDRODIURIL) 25 MG tablet Take 1 tablet by mouth Daily. 90 tablet 3 07/27/19 19 Active nitroglycerin (NITROSTAT) 0.4 MG SL tablet 1 under the tongue as needed for angina, may repeat q5mins for up three doses 25 tablet 1 10/26/19 19 Active carvedilol (COREG) 25 MG tablet TAKE 1 TABLET BY MOUTH TWICE DAILY WITH MEALS 60 tablet 11 03/08/20 19 Active hydrALAZINE (APRESOLINE) 25 MG tablet Take 1 tablet by mouth twice daily 180 tablet 08/29/19 20 Active lisinopril (PRINIVIL,ZEST RIL) 10 MG tablet Take 1 tablet by mouth twice daily 180 tablet 08/29/19 20 Active amLODIPine (NORVASC) 5 MG tablet Take 1 tablet by mouth once daily 90 tablet 08/29/19 20 Active rosuvastatin (CRESTOR) 20 MG tablet Take 20 mg by mouth Daily. 01/16/20 20 Active Multiple Vitamins-Inspecting Engineer als (EYE VITAMINS PO) Take by mouth 2 (Two) Times a Day. 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 Essential hypertension 01/22/2018 Dyslipidemia 01/22/2018 Type 2 diabetes mellitus 01/22/2018 Symptomatic bradycardia 01/21/2018 Family History Medical History Relation Name Comments Parkinsonism Brother Relation Name Status Comments Brother Alive Father Mother Social History Tobacco Use Types Packs/Day Years Used Date Smoking Tobacco: Former Cigarettes 1 10 1 04/22/1969 - 02/21/1980 Smokeless Tobacco: Never Comments:y-year Alcohol Use Standard Drinks/Week Comments Yes 0 (1 standard drink = 0.6 oz pur e alcohol) Beer and Liquor Abuse Screen Answer Date Recorded Unsafe at Home or Work/School Not on file Feels Threatened by Someone? Not on file 03/2023 Does Anyone Keep You from Co ntacting Others or Doint Things Outside the Home? Not on file 01/22/2023 Physical Sign of Abuse Present Not on file 1 Housing Stability Answer Date Recorded Current Living Arrangements Not on file 01/11 Potentially Unsafe Housing Conditions Not on talat e 01/22/2023 Family and Community Support Answer Wilfrid e Recorded Help with Day-to-Day Activities Not on file 01/22/2023 Lonely or Isolated Not on file 01/22/2023 Employment Answer Date Recorded Do you want help finding or keeping work or a elias b? Not on file 01/22/2023 Disabilities Answer Date Recorded Concentrating, Remembering, or Making Decisions Difficulty Not on file 01/22/2023 Doing Errands Independently Difficulty Not on fi le 01/22/2023 Education Answer Date Recorded Help with school or training? Not on file Preferred Language Not on file 01/22/2023 Sex and Gender Information Value Date Recorded Sex Assigned at Not on file Legal Sex Male 12:06 PM EDT Gender Identity Not on file Sexual Orientation Not on file Occupation Industry Job Start Date Job End Date [employer] Not on file Not on file Not on file Last Filed Vital Signs Vital Sign Reading Time Taken Comments Blood Pressure 140/80 02/21/2020 10:48 AM EST Pulse 67 02/21/2020 10:48 AM EST Temperature 36.4 C (97.5 F) 02/21/2020 10:48 AM EST Respiratory Rate 18 02/02/2018 12:51 PM EDT Oxygen Saturation 97% 02/21/2020 10:48 AM EST Inhaled Oxygen Concentration - - Weight 78.9 kg (174 lb) 02/21/2020 10:48 AM EST Height 172.7 cm (5' 8 ) 02/21/2020 10:48 AM EST Body Mass Index 26.46 02/21/2020 10:48 AM EST Plan of Treatment Health Maintenance Due Date Last Done Comments COLOGUARD 1996 COLON CANCER SCREENING 5 YEA R SIGMOIDOSCOPY 1996 COLONOSCOPY 1996 [address] CANCER SCREENING 1996 CT COLONOGRAPHY 1996 FECAL OCCULT BLOOD TEST 1996 FIT Testing (1 year) 1996 ZOSTER VACCINE (1 of 2) 2001 AAA SCREEN ONCE 2016 ANNUAL PHYSICAL 01/25/2018 HEPATITIS C SCREENING 01/25/2018 COVID-19 Vaccine ( - season) 2024 INFLUENZA VACCINE 01/11/2025 12/14/2019, 05/12/2017 TDAP/TD VACCINES (2 - Td or Tdap) 06/19/2028 019 HEMOGLOBIN A1C Discontinued 01/21/2018 Pneumococcal Vaccine 50+ Completed 02/10/2020, 0312/2018 Medical Devices Implanted Type Area Steel Molder Device Identifier Shelf Expiration Date Model / Serial / Lot Stent Xience Tuyet Everolimus Marek 2.5x23mm - [id number] Implanted:Qty: 1 on 02/02/2018 by Marty Sellers MD at [facility] [employer] [id number] / / Procedures Procedure Name Priority Date/Time Associated Diagnosis Comments HEMOGLOBIN A1C Add-On 01/21/2018 12:22 PM EDT from Last 3 Months or Most Recently Relevant to Health Maintenance Results * (ABNORMAL) Hemoglobin A1c (01/21/2018 12:22 PM EDT) Hemoglobin A1C 10.40(H) 4.80 - 5.60 % 01/21/2018 5:12 PM EDT [facility] Blood Line / Unknown 01/21/2018 12 :22 PM EDT 01/21/2018 12:28 PM EDT Narrative [facility] - 01/21/2018 5:12 PM EDT The [employer] recommends maintenance of Hemoglobin A1C at 7.0% or lower. Goals for Hemoglobin A1C reduction may need to be modified if hypoglycemia is a problem. Nik Holland MD LAB BLOOD ORDERABLES Final Resu lt [facility]
[id number] [id number], from Last 3 Months or Most Recently Relevant to Health Maintenance Insurance AETNA SUPP Advance Directives * CPR (Attempt to Resuscitate) (Latest Code Status on File) Date Activated Date Inactivated Comments 02/02/2018 1:23 PM 02/02/2018 6:42 PM Question Answer Comments Code Status (Patient has no pulse and is not breathing): CPR (Attempt to Resuscitate) Medical Interventions (Patie nt has pulse or is breathing): Full Level Of Support Discussed With: Patient * CPR (Attempt to Resuscitate) Date Activated Date Inactivated Comments 01/21/2018 3:17 PM 01/23/2018 3:02 PM Question Answer Comments Code Status (Patient has no pulse and is not breathing): CPR (Attempt to Resuscitate) Medical Interventions (Patie nt has pulse or is breathing): Full Level Of Support Discussed With: Patient * CPR (Attempt to Resuscitate) Date Activated Date Inactivated Comments 01/21/2018 2:44 PM 01/21/2018 3:17 PM Question Answer Comments Code Status (Patient has no pulse and is not breathing): CPR (Attempt to Resuscitate) Medical Interventions (Patie nt has pulse or is breathing): Full Care Teams Reconnaissance Man Relationship Specialty Start Date End Date Sudheer Mora MD [address] [facility] [address] [place] [address] PCP - General Family Medicine 07/26/18
--- OUTSIDE RECORDS SUMMARY | 2024-12-21 13:21 | XMS_ITS | Patient Health Record ---
Author Organization [facility] Address [address] [place] [id number] Care Team Providers Care Director Women Name Role Phone Johnnie Mora Primary Care Provider Gómez Syed Unavailable [phone] Allergies Allergen (clinical drug ingredient) Drug/Non Drug Allergy documented on EMR Reaction Allergy Type Onset Date Status propoxyphene Propoxyphene hives Drug Allergy A ctive Results Component Value Reference Range Notes P-Uric Acid Reviewed date:11/01/2024 03:37:14 PM Interpretation:Normal Performing Lab: Notes/Report: Test performed by [facility] [address] [place], [place] [address] [address] [facility], [place] [address] Sage Joshi MD, Clinical Phlebotomist CLIA: [id number] Uric Acid 5.2 3.4-8.0 mg/dL P-PSA Reviewed date:09/20/2024 04:36:03 PM Interpretation:Normal Performing Lab: Notes/Report: Test performed by [facility] [address] [place], [place] [address] [address], [place] [address] Sage Joshi MD, Clinical Phlebotomist CLIA: [id number] PSA 0.91 <4.00 ng/mL Please note this is an ultrasensitive PSA assay with a lower limit of detection of 0.014 ng/mL. This test is performed by the Leanne ECLIA methodology. Values obtained with different assay methods or kits cannot be directly compared. P-Lipid Panel Reviewed date:08/23/2024 12:06:47 PM Interpretation:trigs 366, hdl 34 Performing Lab: Notes/Report: Test performed by [facility] [address] [place] [address] [place] [address] Sage Joshi MD, Clinical Phlebotomist CLIA: [id number] Cholesterol 120 <200 mg/dL Triglycerides 366 <150 [...] ATPIII guidelines LDL/HDL Ratio 0.4 <3.3 Ratio _ LDL Cholesterol Patient History _ Test Date: 08/12/2024 LDL Results: 13 Units: mg/dL % Change: - _ P-Comprehensive Metabolic Pa gloria (CMP) Reviewed date:09/20/2024 04:36:02 PM Interpretation:gluc 334 Performing Lab: Notes/Report: Test performed by [facility] [address] [place] [address] [address], [place] [address] Sage Joshi MD, Clinical Phlebotomist CLIA: [id number] Sodium 135 135-145 mmol/L Potassium 4.5 3.5-5.3 [...] 0.5 <0.2-1.2 mg/dL A/G Ratio 2.1 1.1-2.5 Glycohemoglobin A1c (in hous e) Reviewed date:09/20/2024 04:36:03 PM Interpretation:10 Performing Lab: Notes/Report: 10 glycohemoglobin 10.0% 5 - 6.5 % P-Comprehensive Metabolic Pa gloria (CMP) Reviewed date:01/15/2024 01:59:35 PM Interpretation:gluc 288, a1c discussed in OV, pt referred to Endo Performing Lab: Notes/Report: Test performed by [employer], [employer] [address] [place] [address] , [address], [place] [address] Sage Joshi MD, Clinical Phlebotomist CLIA: [id number] Sodium 137 135-145 mmol/L Potassium 3.7 3.5-5.3 [...] 1.1-2.5 Glycohemoglobin A1c (in hous e) Reviewed date:01/11/2024 10:22:55 AM Interpretation: Performing Lab: Notes/Report: glycohemoglobin 9.4% 5 - 6.5 % CBC Venipuncture (in house) Reviewed date:09/20/2024 09:37:50 [...] Interpretation:Normal Performing Lab: Notes/Report: Test performed by [facility] [address] [place] [address] , [address], [place] [address] Sage Joshi MD, Clinical Phlebotomist CLIA: [id number] Creatine Kinase 58 20-200 U/L [facility] Reviewed date:09/20/2024 04:36:02 PM Interpretation:ESR 23 Performing Lab: Notes/Report: Test performed by [employer] [address] [place] [address] , [address], [place] [address] Sage Joshi MD, Clinical Phlebotomist CLIA: [id number] Erythrocyte Sedimentation Rate (ESR), Automated 23 <21 mm/hr Rheumatoid Factor 11.0 <14.1 IU/mL C-Reactive Protein (CRP) 0.33 <0.50 mg/dL Antinuclear Antibodies (AYLEEN) Screen, Reflex AYLEEN 9 Panel Negative Negative This test is perform ed by Multiplex Bead Immunoassay methodology. Antinuclear Antibodies (AYLEEN) Result Note SEE COMMENT For positive Autoantibodies, please refer to the interpretive chart here: [email or web address] CCP Antibodies <0.5 <0.5-3.0 U/mL P-TSH reflex to FT4 Reviewed date:09/20/2024 04:36:02 PM Interpretation:Normal Performing Lab: Notes/Report: Test performed by [employer], [employer] , [address], [place] [address] Sage Joshi MD, Clinical Phlebotomist CLIA: [id number] TSH reflex to FT4 1.69 0.43-5.25 mU/L colonoscopy Reviewed date:11/18/2024 12:22:06 PM Interpretation:polyps, diverticulosis, hemorrhoids, repeat 3 years Performing Lab: Notes/Report: polyps, diverticulosis, hemorrhoids, repeat 3 years result: polyps, diverticulosis, hemorrhoids, repeat 3 years repeat study: 3 years Medications Medication SIG (Take, Route, Frequency, Duration) Notes Start Date End Date Status hydrALAZINE HCl 25 mg 1 tab(s) Orally Tw ice a day; Duration: 90 days Active Finasteride 5 MG Take 1 tablet by josé miguel th once daily; Duration: 90 Active Clopidogrel Bisulfate 75 mg 1 tablet Ora lly Once a day; Duration: 90 days Active Carvedilol 25 mg 1 tab(s) Orally Twic e a day; Duration: 90 days Active Meloxicam 15 MG 1 tablet Orally Once a day; Duration: 30 day(s) 10/28/2024 Active amLODIPine Besylate 10 MG 1 tab(s) Orall y once a day; Duration: 90 days Active DULoxetine HCl 30 MG 1 capsule Orally On ce a day; Duration: 30 days 10/28/2024 Active Rosuvastatin Calcium 20 MG 1 tab(s) oral ly once a day; Duration: 90 days Active Toujeo SoloStar 300 UNIT/ML INJECT 60 UN ITS SUBCUTANEOUSLY IN THE MORNING AND 55 UNITS IN THE EVENING; Duration: 46 Active Lisinopril 10 mg 1 tablet Orally Once a day; Duration: 90 days Active Jardiance 25 MG Take 1 tablet by josé miguel th once daily; Duration: 90 Active Ezetimibe 10 MG 1 tablet Orally Once a day; Duration: 30 days 08/26/2024 Active Linzess 290 MCG 1 cap(s) orally once a day; Duration: 90 days 2022 Active NovoLOG FlexPen 100 UNIT/ML INJECT 40 UN ITS SUBCUTANEOUSLY THREE TIMES DAILY BEFORE MEAL(S); Duration: 88 Active Eye Vitamins - as directed Orally t wice a day AREDS Active metFORMIN HCl 500 MG 1 tablet Orally Onc e a day; Duration: 90 days 08/12/2024 Active Aspirin 81 MG 1 tab(s) orally once a day Active hydroCHLOROthiazide 25 mg 1 tab(s) Orall y Once a day; Duration: 90 days Active traMADol HCl 50 MG 1 tab(s) orally thre e times a day as needed; Duration: 30 days 08/12/2024 Active Immunizations Vaccine Route Administration Date Status Comme nts COVID 19 Brianna Unknown 06/30/2020 Administered COVID 19 Brianna Unknown 02/16/2021 Administered Fluzone High Dose (65yr and older) IM Intramuscular 05/12/2017 Administered Fluzone High Dose (65yr and older) IM Intramuscular 12/14/2019 Administered Fluzone High Dose (65yr and older) IM Intramuscular 01/08/2022 Administered PNEUMOVAX 23 VACCINE IM Intramuscular 02/10/2020 Administe red Prevnar (PCV13) IM Intramuscular 06/19/2018 Administered Shingrix Unknown 01/21/2021 Administered Shingrix Unknown 04/11/2021 Administered Tetanus Tdap-Adacel (over 7yrs) IM Intramuscular 06/19/2018 Administered Problems Problem Type SNOMED Code ICD Code Onset Dates Problem Status W/U Status Risk Notes Problem Right upper quadrant pain (630366132) Right upper quadrant abdominal pain (R10.11) Active confirmed Problem Diverticulitis (09434509) Diverticulitis (K57.92) Active confirmed Problem Right upper quadrant pain (238595814) Right upper quadrant pain (R10.11) Active confirmed Problem Type 2 diabetes mellitus with other specified complication (E11.69) Active confirmed Problem Mixed hyperlipidemia (562646283) Mixed hyperlipidemia (E78.2) Active confirmed Problem Restless legs syndrome (50896907) Restless legs syndrome (G25.81) Active confirmed Problem Coronary arteriosclerosis (74095197) Coronary arteriosclerosis (I25.10) Active confirmed Problem Constipation by delayed colonic transit (59729446) Constipation by delayed colonic transit (K59.01) Active confirmed Problem Disorder of prostate (24812831) Benign prostatic disease (N42.9) Active confirmed Problem Gastroesophageal reflux disease without esophagitis (429517680) Gastroesophageal reflux disease without esophagitis (K21.9) Active confirmed Problem Bronchitis (25804006) Bronchitis (J40) Active confirmed Problem Long-term current use of insulin (183452932) Insulin long-term use (Z79.4) Active confirmed Problem Angina (794735874) Atheroscleros is of [place] coronary artery of [place] heart with angina pectoris (I25.119) Active confirmed Problem Idiopathic peripheral neuropathy (53214725) Idiopathic peripheral neuropathy (G60.9) Active confirmed Problem Polyneuropathy due to type 2 diabetes mellitus (015651280) Diabetic polyneuropathy associated with type 2 diabetes mellitus (E11.42) Active confirmed Problem Essential hypertension (86387889) Essential hypertension with goal blood pressure less than 130\/80 (I10) Active confirmed Problem Stented coronary artery (645419338) Stented coronary artery (Z95.5) Active confirmed Problem Herpes zoster wi th other complication (B02.8) Active confirmed Problem Osteoarthritis of knee (524590320) Arthropathy of left knee (M17.12) Active confirmed Problem Degenerative disorder of macula (084476945) Macular degeneration (senile) of retina (H35.30) Active confirmed Problem Computed tomography result abnormal (782238528) Abnormal CT scan (R93.89) Active confirmed Vital Signs Heart Rate 67 /min 11/10/2024 Blood pressure diastolic 70 mm Hg 11/10/2024 Height 68 in 11/10/2024 Blood pressure systolic 130 mm Hg 11/10/2024 Weight 177.4 lbs 11/10/2024 BMI 26.97 kg/m2 11/10/2024 Encounters Encounter Location Date [facility] [address] [place], [place] [id number] 01/11/2024 Johnnie Mora Type 2 diabetes jb itus with other specified complication E11.69 ; Stented coronary artery Z95.5 ; Essential hypertension with goal blood pressure less than 130\/80 I10 ; Arthropathy of left knee M17.12 and Constipation by delayed colonic transit K59.01 [facility] [facility] [address] [place], [place] [id number] 09/19/2024 Gómez El Nido Myalgia, multiple si jasmyn M79.18 ; Polyarthralgia M25.50 ; Nasal congestion R09.81 and BMI 26.0-26.9,adult Z68.26 [facility] [address] [facility] [address] [place], [place] [id number] 10/28/2024 Johnnie Mora Generalized joint pa in M25.50 ; Stented coronary artery Z95.5 ; Type 2 diabetes mellitus with other specified complication E11.69 ; Insulin long-term use Z79.4 and BMI 26.0-26.9,adult Z68.26 [facility] [address] [facility] [address] [place], [place] [id number] 11/10/2024 Johnnie Mora Type 2 diabetes jb itus with other specified complication E11.69 ; Insulin long-term use Z79.4 ; Multiple joint pain M25.50 and BMI 26.0-26.9,adult Z68.26 [facility] [address] [facility] [address] [place], [place] [id number] 08/12/2024 Johnnie Mora Essential hypertensi on with goal blood pressure less than 130\/80 I10 ; Stented coronary artery Z95.5 ; Type 2 diabetes mellitus with other specified complication E11.69 ; Insulin long-term use Z79.4 ; Benign prostatic disease N42.9 ; Arthropathy of left knee M17.12 ; Chronic constipation K59.09 ; Mixed hyperlipidemia E78.2 and BMI 27.0-27.9,adult Z68.27 [facility] [address] [facility] [address] [place], [place] [id number] 01/11/2024 Johnnie Mora [facility] [address] [facility] [address] [place], [place] [id number] 01/11/2024 Johnnie Mroa [facility] [address] [facility] [address] [place], [place] [id number] 01/11/2024 Johnnie Mora [facility] [address] [facility] [address] [place], [place] [id number] 03/04/2024 Johnnie Mora Essential hypertensi on with goal blood pressure less than 130\/80 I10 [facility] [address] [facility] [address] [place], [place] [id number] 03/17/2024 Johnnie Mora Type 2 diabetes jb itus with other specified complication E11.69 ; Essential hypertension with goal blood pressure less than 130\/80 I10 ; Stented coronary artery Z95.5 ; Constipation by delayed colonic transit K59.01 and Right upper quadrant abdominal pain R10.11 [facility] [address] [place], [place] [id number] 08/05/2024 Gómez El Nido Type 2 diabetes jb itus with other specified complication E11.69 ; Stented coronary artery Z95.5 ; Essential hypertension with goal blood pressure less than 130\/80 I10 and Right upper quadrant abdominal pain R10.11 [facility] [address] [place], [place] [id number] 08/23/2024 Johnnie Mora Type 2 diabetes jb itus with other specified complication E11.69 [facility] [address] [place], [place] [id number] 09/20/2024 Gómez El Nido [facility] [address] [place], [place] [id number] 09/27/2024 Johnnie Mora [facility] [address] [place], [place] [id number] 09/28/2024 Gómez El Nido [facility] [address] [place], [place] [id number] 11/01/2024 Johnnie Mora Assessments Encounter Date Diagnosis (ICD Code) Assessment Notes Treatment Notes Treatment Clinical Notes Section Notes 09/19/2024 Myalgia, multiple sites (ICD-10 - M79.18) 10/28/2024 Generalized joint pain (ICD-10 - M25.50) 11/10/2024 Type 2 diabetes mellitus with other specified complication (ICD-10 - E11.69) continue current therapy 11/10/2024 Insulin long-term use (ICD-10 - Z79.4) 01/11/2024 Type 2 diabetes mellitus with other [...] E11.69) 09/19/2024 Polyarthralgia (ICD-10 - M25.50) 09/19/2024 Nasal congestion (ICD-10 - R09.81) 03/17/2024 Essential hypertension with goal blood pressure less than 130\/80 (ICD-10 - I10) 08/05/2024 Stented coronary artery (ICD-10 - Z95.5) 08/12/2024 Type 2 diabetes mellitus with other specified complication (ICD-10 - E11.69) 01/11/2024 Essential hypertension with goal blood pressure less than 130\/80 (ICD-10 - I10) 11/10/2024 Multiple joint pain (ICD-10 - M25.50) 10/28/2024 Stented coronary artery (ICD-10 - Z95.5) 10/28/2024 Type 2 diabetes mellitus with other specified complication (ICD-10 - E11.69) 11/10/2024 BMI 26.0-26.9,adult (ICD-10 - Z68.26) 01/11/2024 Arthropathy of left knee (ICD-10 - M17.12) 03/17/2024 Stented coronary artery (ICD-10 - Z95.5) 08/05/2024 Essential hypertension with goal blood pressure less than 130\/80 (ICD-10 - I10) 09/19/2024 BMI 26.0-26.9,adult (ICD-10 - Z68.26) 08/12/2024 Insulin long-term use (ICD-10 - Z79.4) 08/12/2024 Benign prostatic disease (ICD-10 - N42.9) 08/05/2024 Right upper quadrant abdominal pain (ICD-10 - R10.11) 03/17/2024 Constipation by delayed colonic transit (ICD-10 - K59.01) 01/11/2024 Constipation by delayed colonic transit (ICD-10 - K59.01) 10/28/2024 Insulin long-term use (ICD-10 - Z79.4) 10/28/2024 BMI 26.0-26.9,adult (ICD-10 - Z68.26) 03/17/2024 Right upper quadrant abdominal pain (ICD-10 - R10.11) 08/12/2024 Arthropathy of left knee (ICD-10 - M17.12) 08/12/2024 Chronic constipation (ICD-10 - K59.09) 08/12/2024 Mixed hyperlipidemia (ICD-10 - E78.2) 08/12/2024 BMI 27.0-27.9,adult (ICD-10 - Z68.27) Plan Of Treatment Next Appt Details Provider Name:Johnnie Ritchie er, 02/10/2025 11:30:00 AM, [address], [place], [place], [id number], Insurance Providers Payer Name Payer Address Payer Phone Subscriber Number Group Number Insured Name Patient Relationship to Insured Coverage Start Date Coverage End Date MEDICARE PART B [address] [address] [place] [address] [phone] [id number] Apollo Razo Self - patient is the insured [employer] [address] [place] [address] [phone] [id number] Apollo Razo Self - patient is the insured Medications Administered Medication Instructions Date of Administration Dosage Notes B-12 12/15/2014 1 mL Medical (General) History Medical History History ICD Code [place] Spotted Fever-Autoimmnue Disease Diabetes Mellitus Hypertension Hyperlipidemia Hypertriglyceridemia Esophageal Reflux BPH Coronary Artery Disease with stents 02/12 010 Anisocoria d/t trauma left eye Cath 01/21/2018 with temp pacer. Cath with stent, Dr. Sellers, [facility] macular degeneration see 04/13 09/[address] Guardado. Referral to Dr. Gomezenhagen Colon polyps Surgical History Surgery Date(Month/Year) Hernia 5 surgeries, 2 R, 2 L (inguinal) and 1 umbilical RT knee RT eye orbital surgery 3 Kidney stone procedures Heart Cath with stent placement X 3 02/12 010 Heart Cath with stent placement x1 12/30 Heart Cath, Dr. Ling 02/08/2015 Endoscopy right knee, Dr. Riley, [facility] 01/2015 Colonoscopy Colonoscopy, Dr. Camilo Temporary Pacemaker placement - [facility] Dr Sellers 01/2018 Heart Cath and 3 stents-[facility] [place]-[facility] Brenda ocampo 10/2018 Back Surgery at [facility] 09/10/2021 LT Meniscus Tear Repair 09/18/2023 Colonoscopy, Dr. Camilo, 3 polyps 4 Hospitalization History Reason Date(Month/Year) [facility] ER-abdominal pain 11/10/2018 [facility] ER-chest pain 10/2018 [facility] - Hypotension , Hyperkalemia, a-fib with rapid response 01/21- [facility] 0 04/13/2014 ER- Eye Injury 02/08/2012 [facility] ER- Eye Injury 02/08/2012 [facility]- Left Heart Catherization 11/13
--- OUTSIDE RECORDS SUMMARY | 2024-12-21 13:21 | XMS_ITS | Clinical Summary ---
Author Organization Healthcare Address [address] [place] [address] Care Team Providers Care Battery Tester Name Role Phone Sudheer Mora MD Primary Care Provider [phone] Social History Tobacco Use Types Packs/Day Years Used Date Smoking Tobacco: Never Assessed Sex and Gender Information Value Date Recorded Sex Assigned at Not on file Legal Sex Male 9:10 PM EDT Gender Identity Not on file Sexual Orientation Not on file Plan of Treatment Health Maintenance Due Date Last Done Comments [facility]-Depression Screening 1950 [facility]-/Child/Adol SDOH Screenings 1950 [facility]- SDOH Screenings 1969 [facility]-Adult SDOH Screenings 1969 CT Colonography 1996 Colonoscopy 1996 FIT-DNA 1996 FIT 1996 FOBT 1996 Sigmoidoscopy 1996 [facility]-Colorectal Cancer Screening 1996 [id number] Vaccine ( season) 2023 02/16/2021, 06/30/2020 [facility]-Influenza Vaccine (#1) 2024 01/15/2021 [facility]-RSV Vaccine: 60+ Years o [...] age to complete this topic Care Teams Battery Tester Relationship Specialty Start Date End Date Sudheer Mora MD [address] [place] [address] PCP - General 08/24/20
--- OUTSIDE RECORDS SUMMARY | 2024-12-21 13:21 | XMS_ITS | Encounter Summary ---
Author Organization Healthcare Address [address] [place] [address] Care Team Providers Care Contestant Coordinator Name Role Phone Sudheer Mora MD Primary Care Provider Encounter Details Date Type Department Care Team (Late st Contact Info) Description 06/01/2021 Community [facility] [address] [place] [address] Vernon Manuel Right lower quadrant abdominal mass [...] quadrant documented in this encounter Care Teams Contestant Coordinator Relationship Specialty Start Date End Date Sudheer Mora MD [address] [place] [id number] PCP - General 08/24/20 documented as of this encounter
== END 2024-12-21 23:59 | disposition home or self-care (01) ==
LOC: RAD 13:15
PROVIDERS: PCP Family Medicine; Visit Provider Orthopaedic Surgery
DX: M19.011 Primary osteoarthritis, right shoulder (principal)
CPT/HCPCS: 73030